=== PATIENT | male | born 1955 | race Caucasian/White ===

== ENCOUNTER 2020-07-11 11:46 | Emergency (ER) | payer MEDICAID, SELFPAY ==
[2020-07-11] VITALS (7 sets, daily range): BP systolic 111–139; BP diastolic 59–78; PULSE 59–76; RESP 17–29; TEMP 36.7; O2SAT 96–98; BMI 40.3
--- NOTE | 2020-07-11 11:59 | XR_ITS ---
WS: [id number] Chest 2 views, 07/11/2020 Clinical Data: SOB Comparison: PA chest, 03/22/2014. Findings: No nodules, masses or effusions are seen. The heart is enlarged. The pulmonary vascularity is not increased. No pneumonia or pneumothorax is seen. The permanent pacemaker remains in same posit ion with the generator overlying the left upper lung. XR/XR chest 2V* 41209 Impression: No change in cardiomegaly.
--- NOTE | 2020-07-11 11:59 | ECG_ITS ---
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 Measurements Intervals [place] Rate: 64 P: UT: -1 QRS: -86 QRSD: 218 T: 93 QT: 534 QTc: 554 Interpretive Statements Atrial fibrillation with V paced rhythm with PVC's No previous ECG available for comparison Electronically Signed On 07-11-2020 20:17:41 CDT by Nicki Holloway M.D. [id number]
--- NOTE | 2020-07-11 12:05 | W.ED.SOB ---
HPI - SOB/Dyspnea General: Chief Complaint: Shortness of Breath/Dyspnea Stated Complaint: SOB/ABD PAIN Time Seen by Provider: 07/11/20 11:49 Source: patient Mode of arrival: ambulatory Limitations: no limitations History of Present Illness: MD elicited complaint: shortness of breath and cough Pertinent past history: congestive heart failure Onset (ago): day(s) (3) Timing: constant and progressively worsening Severity: moderate Exacerbating factors: nothing Relieving factors: nothing Known history of: congestive heart failure Associated symptoms: Reports abdominal pain, chest congestion and cough; Deny chest pain, diaphoresis, dizziness, extremity pain, fever(s), hemoptysis, lightheadedness, myalgias, nausea, orthopnea, palpitations, paresthesias, polydipsia, polyuria, rash, sense of impending doom, syncope or vomiting Treatment prior to arrival: none Review of Systems General: Reports: 10 or more systems reviewed and unremarkable except in HPI and below Const: Denies: fever(s) or diaphoresis Eyes: Denies: change in vision or blurry vision ENMT: Denies: throat pain, enlarged tonsils, odynophagia, hoarseness, mouth pain or swelling of lips/tongue Card: Denies: chest pain, palpitations, lightheadedness, syncope or orthopnea Resp: Reports: chest congestion; Denies: hemoptysis GI: Reports: abdominal pain; Denies: nausea or vomiting : Denies: flank pain, dysuria, urinary frequency, urinary urgency or urinary hesitancy Musc: Denies: extremity pain Skin/Breast: Denies: rash, pruritus or erythema Neuro: Denies: dizziness Endo: Denies: polyuria or polydipsia PFSH ED PFSH: Medical History 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, congenital Mitral regurgitation Tricuspid valve disease Surgical History Status cardiac pacemaker Family History Mother Diabetes Social History Smoking and tobacco status: former smoker Alcohol intake: former Marital status: service: No Current occupational status: disabled Physical Exam Const: COMMON NORMALS: no acute distress, average body habitus, patient oriented x3, no limitations, healthy appearing, alert and well nourished HENMT: COMMON NORMALS: normocephalic, atraumatic and moist oral mucous membranes HEAD & SCALP: normocephalic and atraumatic Neck/C-Spine: COMMON NORMALS: no meningeal signs and no JVD Resp: COMMON NORMALS: normal respiratory effort, No retractions, No use of accessory muscles, clear to auscultation bilaterally and percussion normal AUSCULTATION: clear to auscultation bilaterally PERCUSSION: percussion normal Cardio: COMMON NORMALS: no JVD, regular rate, regular rhythm, S1 normal heart sound present, S2 normal heart sound present, No gallops present (Cardio), No clicks present (Cardio), No murmurs present (Cardio), No rub (Cardio) and Peripheral pulses 2+ throughout RATE: regular rate RHYTHM: regular rhythm HEART SOUNDS: S1 normal heart sound present and S2 normal heart sound present PERIPHERAL PULSES: Peripheral pulses 2+ throughout GI: COMMON NORMALS: Normal to inspection, nondistended, normoactive bowel sounds present, Soft to palpation, non-tender, No hepatosplenomegaly present, no masses and no bruits PALPATION: Yes Soft to palpation and Yes No hepatosplenomegaly present Extremity: COMMON NORMALS: normal to inspection, full ROM, capillary refill normal, no calf tenderness and no pedal edema Neuro: COMMON NORMALS: patient oriented x3 SENSORIUM/ORIENTATION: Yes alert MENINGEAL SIGNS: Yes no meningeal signs Course Reevaluation(s): Reevaluation #1: Discussed his lab and imaging findings with him. He has significantly elevated liver functions and bilirubin, he has had a history of liver issues in the past but he still has his gallbladder so I will order an ultrasound of his gallbladder. Baseline troponin mildly elevated, proBNP elevated also. Chest x-ray negative for acute findings. We will talk to him after I get the ultrasound of his abdomen. He voiced understanding and is in agreement with the plan Time: 14:26 Consultations: Consultation #1: Discussed his repeat troponin, CT scan of his chest abdomen and pelvis and ultrasound of his gallbladder. Ultrasound unremarkable, however CT scan of his abdomen shows he has a single gallstone but no features of cholelithiasis. Because of the marcia-cholecystic edema I advised that he follows up with a general surgeon for further evaluation. CT scan of his lungs also shows a single pulmonary nodule and so he is advised to follow-up with his primary care for repeat imaging in about 3 months. Because his troponin is elevated even though he has a flat delta I would advise a stress test outpatient. Also the patient states that he is not sleeping well and wakes up at night sometimes with difficulty breathing, not certain if this is orthopnea or just sleep apnea as his body habitus appearance to favor sleep apnea. He has never had a sleep study done so I advised that he gets 1. He voiced understanding with all these plans and is in agreement with all the plans. I will put in a referral for sleep study, stress test, and referral to a surgeon. Time: 16:41 Vital Signs: Vital signs: Vital Signs Temperature 98.1 F 07/11/20 11:53 Pulse Rate 64 07/11/20 17:05 Respiratory Rate 26 H 07/11/20 17:05 Blood Pressure 118/72 07/11/20 17:05 Pulse Oximetry 97 07/11/20 17:05 MDM - SOB/Dyspnea MDM Narrative: Medical decision making narrative: Patient who presents to the emergency department with progressive shortness of breath. He has a history of congestive heart failure and is on Lasix. Due to his body habitus I suspect he also has obstructive sleep apnea. But he has never been tested for it. Evaluation in the emergency department showed he had an elevated baseline troponin but a flat delta, however given that it is raised he will get an outpatient stress test. He also has elevated liver enzymes but looking through his old labs he has had that in the past. Imaging done shows a gallstone but no findings suggestive of cholecystitis. He will be referred to a general surgeon for further evaluation. He also has some hyponatremia but it is mild. Well score is 0 so low risk for PE. Referrals made for surgery, sleep study, stress test. No new orders were given to the patient today. Medical Records: Attestation: I reviewed the patient's medical records. Lab Data: Attestation: I reviewed the patient's lab results. Labs: Lab Results 07/11/20 07/11/20 07/11/20 Range/Units 12:07 12:07 12:07 WBC 8.9 (4.0-10.0) 10^3/ uL RBC 4.34 (4.1-5.3) 10^6/u L Hgb 10.1 L (11.7-16.6) g/dL Hct 34.3 L (42.0-52.0) % MCV 79.0 L (80-94) fL MCH 23.3 L (28.0-34.0) pg MCHC 29.4 L (30.0-36.0) g/dL RDW 17.8 H (12.1-15.1) % Plt Count 288 (130-400) 10^3/c mm MPV 10.4 (7.4-10.4) fL Neut % (Auto) 80.8 % Lymph % (Auto) 9.8 % Amelia % (Auto) 8.2 % Eos % (Auto) 0.4 % Baso % (Auto) 0.4 % Neut # (Auto) 7.20 (1.8-7.7) 10^3/u L Lymph # (Auto) 0.9 (0.8-4.8) 10^3/u L Amelia # (Auto) 0.7 (0.2-0.9) 10^3/u L Eos # (Auto) 0.0 (0.0-0.8) 10^3/u L Baso # (Auto) 0.0 (0.0-0.1) 10^3/u L Nucleated RBC % (a uto) 0.2 % Nucleated RBCs # 0.0 /100WBC Sodium 129 L (136-145) mmol/L Potassium 4.3 (3.5-5.1) mmol/L Chloride 91 L (98-107) mmol/L Carbon Dioxide 19 L (22-29) mmol/L Anion Gap 23.3 H (5-19) BUN 23 (8-23) mg/dL Creatinine 1.5 H (0.7-1.2) mg/dL GFR Calculation 47.4 L (90-130) mL/min Glucose 138 H (65-115) mg/dL Calculated Osmolal ity 267 L (285-295) mOsm/k g Calcium 8.9 (8.5-10.5) mg/dL Total Bilirubin 4.4 H (0.15-1.2) mg/dL AST 419 H (0-40) U/L ALT 513 H (0-41) U/L Alkaline Phosphata se 123 (40-130) IU/L Troponin T Baselin e 34 H (0-15) ng/L Troponin T 120 Min [place] (0-15) ng/L Delta Troponin T (0-10) ABS# C-Reactive Protein 61.7 H (0.0-4.9) mg/L NT-Pro-B Natriuret Pep 3367 H (0-125) pg/mL Total Protein 7.5 (6.6-8.7) g/dL Albumin 4.5 (3.5-5.2) g/dL Globulin 3.0 (1.3-4.6) g/dL Lipase 65 H (13-60) U/L Procalcitonin 0.20 (0-0.5) ng/mL 07/11/20 Range/Units 14:17 WBC (4.0-10.0) 10^3/ uL RBC (4.1-5.3) 10^6/u L Hgb (11.7-16.6) g/dL Hct (42.0-52.0) % MCV (80-94) fL MCH (28.0-34.0) pg MCHC (30.0-36.0) g/dL RDW (12.1-15.1) % Plt Count (130-400) 10^3/c mm MPV (7.4-10.4) fL Neut % (Auto) % Lymph % (Auto) % Amelia % (Auto) % Eos % (Auto) % Baso % (Auto) % Neut # (Auto) (1.8-7.7) 10^3/u L Lymph # (Auto) (0.8-4.8) 10^3/u L Amelia # (Auto) (0.2-0.9) 10^3/u L Eos # (Auto) (0.0-0.8) 10^3/u L Baso # (Auto) (0.0-0.1) 10^3/u L Nucleated RBC % (a uto) % Nucleated RBCs # /100WBC Sodium (136-145) mmol/L Potassium (3.5-5.1) mmol/L Chloride (98-107) mmol/L Carbon Dioxide (22-29) mmol/L Anion Gap (5-19) BUN (8-23) mg/dL Creatinine (0.7-1.2) mg/dL GFR Calculation (90-130) mL/min Glucose (65-115) mg/dL Calculated Osmolal ity (285-295) mOsm/k g Calcium (8.5-10.5) mg/dL Total Bilirubin (0.15-1.2) mg/dL AST (0-40) U/L ALT (0-41) U/L Alkaline Phosphata se (40-130) IU/L Troponin T Baselin e (0-15) ng/L Troponin T 120 Min [place] 34.19 H (0-15) ng/L Delta Troponin T 0.19 (0-10) ABS# C-Reactive Protein (0.0-4.9) mg/L NT-Pro-B Natriuret Pep (0-125) pg/mL Total Protein (6.6-8.7) g/dL Albumin (3.5-5.2) g/dL Globulin (1.3-4.6) g/dL Lipase (13-60) U/L Procalcitonin (0-0.5) ng/mL Imaging Data^: CXR: Radiologist's impression: [address] [address] XRay Report Signed Patient: Maximus Martines #: [id number] : 8[facility]#:[id number] Age/Sex: 64 / MADM Date: 07/11/20 [facility]: [facility]/Bed: Attending Dr: Ordering Provider/Ordering MD: Claudia Mayes MD, [facility] Date of Service: 07/11/20 Procedure(s): XR chest 2V* [id number] Accession Number(s): [id number] Report Number: [id number] WS: [id number] Chest 2 views, 07/11/2020 Clinical Data: SOB Comparison: PA chest, 03/22/2014. Findings: No nodules, masses or effusions are seen. The heart is enlarged. The pulmonary vascularity is not increased. No pneumonia or pneumothorax is seen. The permanent pacemaker remains in same position with the generator overlying the left upper lung. XR/XR chest 2V* 29444 Impression: No change in cardiomegaly. Dictated By:Laly Catalan MD Signed By:Laly Catalan MDSigned Date/Time:07/11/[address] Chest: Radiologist's impression: [address] [address] [address] Scan Report Signed Patient: Maximus Martines #: [id number] : 8Acct#:[id number] Age/Sex: 64 / MADM Date: 07/11/20 Loc: ERRoom/Bed: Attending Dr: Ordering Provider/Ordering MD: Claudia Mayes MD, [facility] Date of Service: 07/11/20 Procedure(s): CT chest abd pel wo con Accession Number(s): [id number] Report Number: [id number] PROCEDURE INFORMATION: Exam: CT Chest Without Contrast Exam date and time: 07/11/2020 3:25 PM Age: 64 years old Clinical indication: Nausea and vomiting; Shortness of breath; Prior surgery; Surgery type: Pacemaker; Additional info: SOB, hepatomegaly, elevated liver enzymes. TECHNIQUE: Imaging protocol: Computed tomography of the chest without contrast. Radiation optimization: All CT scans at this facility use at least one of these dose optimization techniques: automated exposure control; mA and/or kV adjustment per patient size (includes targeted exams where dose is matched to clinical indication); or iterative reconstruction. COMPARISON: US gall bladder [id number] 07/11/2020 2:30 PM RADIATION DOSE METRICS: Total DLP (mGy-cm): 2781.93 FINDINGS: Tubes, catheters and devices: A dual lead left subclavian permanent pacemaker is present. The right atrial and right ventricular leads appear to be in good position. Lungs: 2.6 mm right upper lobe posterior segment not definitely calcified pulmonary nodule. Right lower lobe calcified pulmonary parenchymal granuloma. Left upper lobe calcified pulmonary parenchymal granuloma. Pleural space: No pneumothorax. No pleural effusion. Heart: Moderate cardiomegaly. Atherosclerotic coronary calcifications are noted involving the LAD and LCx coronary arteries. Moderate pericardial effusion. Mediastinal space: Right hilar granulomatous katelynn calcifications are present. Aorta: Unremarkable. No aortic aneurysm. Lymph nodes: No enlarged lymph nodes. Pancreas: Severe pancreatic atrophy. Spleen: Calcified splenic granuloma. Bones/joints: No acute abnormality. No acute fracture. Soft tissues: Unremarkable. IMPRESSION: 1. Noncalcified left upper lobe pulmonary nodule. Pulmonary neoplasia not excluded. Comparison with prior studies, if available, recommended. Three-month followup chest CT, PET/CT, or percutaneous needle biopsy recommended. (Blessing et al., Fleischner Society, 2017). 2. Coronary atherosclerosis. 3. Moderate pericardial effusion. 4. Please see the abdomen/pelvis CT report of the same date for additional findings. PROCEDURE INFORMATION: Exam: CT Abdomen And Pelvis Without Contrast Exam date and time: 07/11/2020 3:25 PM Age: 64 years old Clinical indication: Nausea and vomiting; Shortness of breath; Prior surgery; Surgery type: Pacemaker; Additional info: SOB, hepatomegaly, elevated liver enzymes. TECHNIQUE: Imaging protocol: Computed tomography of the abdomen and pelvis without contrast. Radiation optimization: All CT scans at this facility use at least one of these dose optimization techniques: automated exposure control; mA and/or kV adjustment per patient size (includes targeted exams where dose is matched to clinical indication); or iterative reconstruction. COMPARISON: US gall bladder [id number] 07/11/2020 2:30 PM RADIATION DOSE METRICS: Total DLP (mGy-cm): 2781.93 FINDINGS: Lungs: A 9.2 mm noncalcified pulmonary nodule is noted in the medial anterior segment of the left upper lobe (LOC 100). Liver: Normal. No mass. Gallbladder and bile ducts: A single 2.3 mm gallstone is present in the neck of the contracted gallbladder. No wall thickening or pericholecystic fluid identified. Mild pericholecystic edema. Pancreas: Normal. No ductal dilation. Spleen: Normal. No splenomegaly. Adrenals: Normal. No mass. Kidneys and ureters: Severe left renal atrophy. 2.4 cm exophytic left renal benign simple cyst. Stomach and bowel: Sigmoid colonic diverticula are present without specific evidence of diverticulitis, left iliac fossa ascites blurs the proximal sigmoid colonic margin. Appendix: The vermiform appendix is normal. Intraperitoneal space: Mild nonspecific perihepatic, bilateral paracolic gutter and iliac fossae peritoneal fluid. Vasculature: Calcified phleboliths are present in the lower pelvis bilaterally. Lymph nodes: Peripancreatic lymph node measuring 10.7 mm short axis. Portacaval lymph node measuring 10.9 mm short axis. Bladder: Unremarkable as visualized. Reproductive: The prostate gland demonstrates nonspecific parenchymal calcifications. Bones/joints: Moderate L1-L2 spondylosis. Bilateral mild lower lumbar facet primary osteoarthritis. Lumbar spine vertebral body marginal osteophytes are noted at multiple levels. Soft tissues: Bilateral inguinal hernias are present containing only intra-abdominal fat. CT/CT chest abd pel wo con IMPRESSION: 1. Cholelithiasis, mild pericholecystic edema without gallbladder luminal distension. Clinical correlation with the patient's specific symptomatology is recommended. Two 2. Mild nonspecific perihepatic, bilateral paracolic gutter and iliac fossae peritoneal fluid. 3. Severe left renal atrophy. 4. Left renal benign simple cyst. 5. Chronic calcific prostatitis. 6. Nonspecific mild upper abdominal lymphadenopathy. 7. Diverticulosis. COMMENTS: Consistent with the [place] [employer]'s Incidental Findings Committee white paper (J Am Solomon Radiol 2018): Any incidental renal lesion less than 1.0 cm or classified as too small to characterize, or any incidental cystic renal lesion characterized as simple-appearing, is likely benign. No follow-up imaging is recommended for these lesions per consensus recommendations based on imaging criteria. Radiation Dose CTDIVOL = (mGy): DLP = 2781.93~2781.93 (mGy-cm) Dictated By:Ben Ibarra MD Signed By:Ben Ibarra Date/Time:07/11/201609 DD/ 1610 US: Radiologist's impression: [address] [place] [address] Ultrasound Report Signed Patient: Maximus Martines #: [id number] : 8Acct#:[id number] Age/Sex: 64 / MADM Date: 07/11/20 Loc: ERRoom/Bed: Attending Dr: Ordering Provider/Ordering MD: Claudia Mayes MD, [facility] Date of Service: 07/11/20 Procedure(s): US gall bladder 20710 Accession Number(s): [id number] Report Number: [id number] WS: [id number] ULTRASOUND ABDOMEN LIMITED CLINICAL INFORMATION: elevated liver enzymes COMPARISON: None. FINDINGS: Liver Size: Enlarged Craniocaudal length: 19.9 cm. Echogenicity: Coarse dense echogenicity Surface nodularity: None. Mass (size and location): None. Bile ducts Intrahepatic ducts: Normal. Common bile duct diameter: 0.4 cm. Gallbladder Mild gallbladder wall thickening. Gallbladder is normal. Gallstones: None. Gallbladder sludge: None. Gallbladder wall thickenin.6 mm Pericholecystic fluid: None. Sonographic Garcia sign: Absent. Pancreas Normal as visualized. Right kidney: Normal. Hydronephrosis: None. Size: 11.0 cm x 5.7 cm x 5.8 cm. Abdominal aorta and IVC Visualized portions are normal. Ascites: None. US/US gall bladder [id number] IMPRESSION: 1. Hepatomegaly with diffuse fatty infiltration. Recommend correlation with liver function tests. 2. Mild gallbladder wall thickening measuring 3.6 mm similar in appearance to 2014 likely on the basis of hepatocellular disease. No cholelithiasis. Gallbladder is otherwise normal. 3. Normal common bile duct. 4. No hydronephrosis in right kidney. Dictated By:Jimi Parrish MD Signed By:Jimi Parrish MDSigned Date/Time:07/11/20 1506 DD/ 1501 EKG Data^: EKG 1: Attestation: I personally reviewed and interpreted this EKG as follows: EKG Interpretation Date: 07/11/20 EKG interpretation time: 12:14 Prior EKG tracings: not available for review Interpretation: Ventricular paced rhythm. Heart rate [address] changes. EKG 2: Attestation: I personally reviewed and interpreted this EKG as follows: EKG Interpretation Date: 07/11/20 EKG interpretation time: 14:28 Prior EKG tracings: available for review Interpretation: Ventricular paced rhythm. Heart rate 62 bpm. Unchanged from earlier today. Discharge Plan Discharge Patient Disposition: Home Clinical Impression: Breath, shortness, Elevated troponin, Incidental pulmonary nodule Gallstone Qualifiers: Cholecystitis presence: without cholecystitis Biliary obstruction: without biliary obstruction Qualified Code(s): K80.20 - Calculus of gallbladder without cholecystitis without obstruction Condition: Stable Prescriptions: New Reglan 10 mg tablet 10 mg PO Q6H PRN (Reason: nausea and vomiting) Qty: 30 RF: 0 Continued potassium chloride [Klor-Con M20] 20 mEq tablet,ER particles/crystals 20 meq PO DAILY 90 Days Qty: 90 RF: 3 furosemide 80 mg tablet 80 mg PO BID RF: 0 lisinopril 5 mg tablet 5 mg PO DAILY RF: 0 aspirin [Aspir-81] 81 mg tablet,delayed release (DR/EC) 81 mg PO DAILY RF: 0 magnesium oxide 400 mg magnesium capsule 400 mg PO DAILY RF: 0 spironolactone 50 mg tablet 50 mg PO DAILY 90 Days Qty: 90 RF: 3 omeprazole 20 mg capsule,delayed release(DR/EC) 20 mg PO DAILY Qty: 90 RF: 3 Discharge Orders: Discharge Order (Routine); Ordered 07/11/20 Ordered By: Claudia Mayes Patient Instructions: Biliary Colic (ED), Pulmonary Nodules (ED) Activity Restrictions/Additional Instructions: Return for any new or worsening symptoms. You will be contacted by case management to schedule appointment with the general surgeon for your gallbladder, and outpatient stress test as well and with sleep study. It is important that you get a primary care provider to coordinate your care. Take the medication as needed for nausea. Discharge Date/Time: 07/11/20 17:11 Coding Level of Care Code ED Equipment Application Specialist for Chel Fwcassidy Exam Detailed
[2020-07-11 12:13] LABS: Basophils % 0.4 %; Eosinophils % 0.4 %; Hematocrit 34.3 % (42.0-52.0); Hemoglobin 10.1 g/dL (11.7-16.6); Lymphocytes # 0.9 10^3/uL (0.8-4.8); Lymphocytes % 9.8 %; Mean Corpuscular HGB Conc 29.4 g/dL (30.0-36.0); Mean Corpuscular Hemoglobin 23.3 pg (28.0-34.0); Mean Platelet Volume 10.4 fL (7.4-10.4); Monocytes # 0.7 10^3/uL (0.2-0.9); Monocytes % 8.2 %; Neutrophils % 80.8 %; Nucleated Red Blood Cells % 0.2 %; Platelet Count 288 10^3/cmm (130-400); Red Blood Count 4.34 10^6/uL (4.1-5.3); Red Cell Distribution Width 17.8 % (12.1-15.1); White Blood Count 8.9 10^3/uL (4.0-10.0)
[2020-07-11 12:36] LABS: Troponin(5th) Baseline 34 ng/L (0-15)
[2020-07-11 12:45] LABS: NT Pro B Type Natriuretic Pept 3367 pg/mL (0-125)
[2020-07-11 12:56] LABS: Alanine Aminotransferase 513 U/L (0-41); Albumin Level 4.5 g/dL (3.5-5.2); Alkaline Phosphatase 123 IU/L (40-130); Anion Gap 23.3 (5-19); Aspartate Amino Transferase 419 U/L (0-40); Blood Urea Nitrogen 23 mg/dL (8-23); C Reactive Protein 61.7 mg/L (0.0-4.9); Calcium 8.9 mg/dL (8.5-10.5); Carbon Dioxide 19 mmol/L (22-29); Chloride 91 mmol/L (98-107); Glomerular Filtration Rate 47.4 mL/min (90-130); Glucose 138 mg/dL (65-115); Lipase 65 U/L (13-60); Osmolality Calculated 267 mOsm/kg (285-295); Potassium 4.3 mmol/L (3.5-5.1); Sodium 129 mmol/L (136-145); Total Bilirubin 4.4 mg/dL (0.15-1.2); Total Protein 7.5 g/dL (6.6-8.7)
--- NOTE | 2020-07-11 13:59 | ECG_ITS ---
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 Measurements Intervals [place] Rate: 62 P: NC: -1 QRS: 269 QRSD: 216 T: 89 QT: 561 QTc: 574 Interpretive Statements Atrial fibrillation with V paced rhythm with PVC's Compared to ECG 07/11/2020 12:14:49 Prolonged QT interval now present Electronically Signed On 07-11-2020 20:34:54 CDT by Nicki Holloway M.D. [email or web address] [facility] hospitalECS [email or web address].[employer]/store/OM/[id number]
--- NOTE | 2020-07-11 14:27 | US_ITS ---
WS: [id number] ULTRASOUND ABDOMEN LIMITED CLINICAL INFORMATION: elevated liver enzymes COMPARISON: None. FINDINGS: Liver Size: Enlarged Craniocaudal length: 19.9 cm. Echogenicity: Coarse dense echogenicity Surface nodularity: None. Mass (size and location): None. Bile ducts Intrahepatic ducts: Normal. Common bile duct diameter: 0.4 cm. Gallbladder Mild gallbladder wall thickening. Gallbladder is normal. Gallstones: None. Gallbladder sludge: None. Gallbladder wall thickenin.6 mm Pericholecystic fluid: None. Sonographic Garcia sign: Absent. Pancreas Normal as visualized. Right kidney: Normal. Hydronephrosis: None. Size: 11.0 cm x 5.7 cm x 5.8 cm. Abdominal aorta and IVC Visualized portions are normal. Ascites: None. US/US gall bladder [id number] IMPRESSION: 1. Hepatomegaly with diffuse fatty infiltration. Recommend correlation with li jenny function tests. 2. Mild gallbladder wall thickening measuring 3.6 mm similar in appearance to 2014 likely on the basis of hepatocellular disease. No cholelithiasis. Gallblad gayathri is otherwise normal. 3. Normal common bile duct. 4. No hydronephrosis in right kidney.
[2020-07-11 14:51] LABS: Troponin 5 2HR 34.19 ng/L (0-15); Troponin 5 2HR Delta 0.19 ABS# (0-10)
--- NOTE | 2020-07-11 15:18 | CTR_ITS ---
PROCEDURE INFORMATION: Exam: CT Chest Without Contrast Exam date and time: 07/11/2020 3:25 PM Age: 64 years old Clinical indication: Nausea and vomiting; Shortness of breath; Prior surgery; Surgery type: Pacemaker; Additional info: SOB, hepatomegaly, elevated liver enzymes. TECHNIQUE: Imaging protocol: Computed tomography of the chest without contrast. Radiation optimization: All CT scans at this facility use at least one of these dose optimization techniques: automated exposure control; mA and/or kV adjustment per patient size (includes targeted exams where dose is matched to clinical indication); or iterative reconstruction. COMPARISON: US gall bladder [id number] 07/11/2020 2:30 PM RADIATION DOSE METRICS: Total DLP (mGy-cm): 2781.93 FINDINGS: Tubes, catheters and devices: A dual lead left subclavian permanent pacemaker is present. The right atrial and right ventricular leads appear to be in good position. Lungs: 2.6 mm right upper lobe posterior segment not definitely calcified pulmonary nodule. Right lower lobe calcified pulmonary parenchymal granuloma. Left upper lobe calcified pulmonary parenchymal granuloma. Pleural space: No pneumothorax. No pleural effusion. Heart: Moderate cardiomegaly. Atherosclerotic coronary calcifications are noted involving the LAD and LCx coronary arteries. Moderate pericardial effusion. Mediastinal space: Right hilar granulomatous katelynn calcifications are present. Aorta: Unremarkable. No aortic aneurysm. Lymph nodes: No enlarged lymph nodes. Pancreas: Severe pancreatic atrophy. Spleen: Calcified splenic granuloma. Bones/joints: No acute abnormality. No acute fracture. Soft tissues: Unremarkable. IMPRESSION: 1. Noncalcified left upper lobe pulmonary nodule. Pulmonary neoplasia not excluded. Comparison with prior studies, if available, recommended. Three-month followup chest CT, PET/CT, or percutaneous needle biopsy recommended. (Blessing et al., Fleischner Society, 2017). 2. Coronary atherosclerosis. 3. Moderate pericardial effusion. 4. Please see the abdomen/pelvis CT report of the same date for additional findings. PROCEDURE INFORMATION: Exam: CT Abdomen And Pelvis Without Contrast Exam date and time: 07/11/2020 3:25 PM Age: 64 years old Clinical indication: Nausea and vomiting; Shortness of breath; Prior surgery; Surgery type: Pacemaker; Additional info: SOB, hepatomegaly, elevated liver enzymes. TECHNIQUE: Imaging protocol: Computed tomography of the abdomen and pelvis without contrast. Radiation optimization: All CT scans at this facility use at least one of these dose optimization techniques: automated exposure control; mA and/or kV adjustment per patient size (includes targeted exams where dose is matched to clinical indication); or iterative reconstruction. COMPARISON: US gall bladder [id number] 07/11/2020 2:30 PM RADIATION DOSE METRICS: Total DLP (mGy-cm): 2781.93 FINDINGS: Lungs: A 9.2 mm noncalcified pulmonary nodule is noted in the medial anterior segment of the left upper lobe (LOC 100). Liver: Normal. No mass. Gallbladder and bile ducts: A single 2.3 mm gallstone is present in the neck of the contracted gallbladder. No wall thickening or pericholecystic fluid identified. Mild pericholecystic edema. Pancreas: Normal. No ductal dilation. Spleen: Normal. No splenomegaly. Adrenals: Normal. No mass. Kidneys and ureters: Severe left renal atrophy. 2.4 cm exophytic left renal benign simple cyst. Stomach and bowel: Sigmoid colonic diverticula are present without specific evidence of diverticulitis, left iliac fossa ascites blurs the proximal sigmoid colonic margin. Appendix: The vermiform appendix is normal. Intraperitoneal space: Mild nonspecific perihepatic, bilateral paracolic gutter and iliac fossae peritoneal fluid. Vasculature: Calcified phleboliths are present in the lower pelvis bilaterally. Lymph nodes: Peripancreatic lymph node measuring 10.7 mm short axis. Portacaval lymph node measuring 10.9 mm short axis. Bladder: Unremarkable as visualized. Reproductive: The prostate gland demonstrates nonspecific parenchymal calcifications. Bones/joints: Moderate L1-L2 spondylosis. Bilateral mild lower lumbar facet primary osteoarthritis. Lumbar spine vertebral body marginal osteophytes are noted at multiple levels. Soft tissues: Bilateral inguinal hernias are present containing only intra-abdominal fat. CT/CT chest abd pel wo con IMPRESSION: 1. Cholelithiasis, mild pericholecystic edema without gallbladder luminal distension. Clinical correlation with the patient's specific symptomatology is recommended. Two 2. Mild nonspecific perihepatic, bilateral paracolic gutter and iliac fossae peritoneal fluid. 3. Severe left renal atrophy. 4. Left renal benign simple cyst. 5. Chronic calcific prostatitis. 6. Nonspecific mild upper abdominal lymphadenopathy. 7. Diverticulosis. COMMENTS: Consistent with the [employer]'s Incidental Findings Committee white paper (J Am Solomon Radiol 2018): Any incidental renal lesion less than 1.0 cm or classified as too small to characterize, or any incidental cystic renal lesion characterized as simple-appearing, is likely benign. No follow-up imaging is recommended for these lesions per consensus recommendations based on imaging criteria. Radiation Dose CTDIVOL = (mGy): DLP = 2781.93~2781.93 (mGy-cm)
--- NOTE | 2020-07-11 17:00 | PC.NURSE ---
UPON DC DR. SIERRA INFORMED OF RR OF 26/MIN. VERBALIZED UNDERSTANDING NO FURTHER ORDERS.
--- NOTE | 2020-07-12 09:52 | DCPLANNER ---
dairy store manager had message to schedule a follow up appointment for patient for an outpatient stress test, a sleep study and a follow up appointment with general surgery. dairy store manager called patient to confirm that patient wanted the stress test, and sleep study, and to confirm who patient sees for primary care to send these results to. Patient stated that he did want the tests ordered, and that he did not have a primary care. Patient stated that he did not want to be seen at the [facility], he would see a physician in [place]. dairy store manager will get patient established with Dr. Malagon. dairy store manager faxed order for stress test and sleep study to centralized scheduling. dairy store manager did get conformation that order was received at centralized scheduling. Centralized scheduling will call patient with appointment information. dairy store manager also had message to schedule a follow up appointment for patient with general surgery. dairy store manager called the [facility], spoke with Meli, gave clinic patients information. dairy store manager was told that patients information would be printed and reviewed. Clinic will call patient with appointment information. After patient is scheduled for stress test, and sleep study, family independence case manager will schedule a follow up appointment for patient with Dr. Malagon, and will call patient with appointment information.
--- NOTE | 2020-07-18 10:41 | DCPLANNER ---
Addendum entered by Vy Penny 07/19/20 13:29: Patient has another appointment scheduled for Wednesday, July 29, 2020 at 9:00 with [facility] Manager clinic. net development manager called patient and gave patient the appointment information for Dr. Malagon. Original Note: Patient has some follow up appointments scheduled. Stress test - June at 11:30 Sleep Study - Thursday, August 06, 2020 at 8:00 Dr. Malagon - August 13, at 9:[address] Malagon. net development manager called [facility] clinic, spoke with Kelly. net development manager was told that no appointment had been scheduled for patient at this time. net development manager called patient to inform patient of the appointment with Dr. Malagon, unable to speak with patient at this time and no voicemail set up, will try again later.
--- NOTE | 2020-08-16 15:17 | DCPLANNER ---
Patient had a stress test scheduled for 07.25.20 - patient did attend stress test Patient had a sleep study scheduled for 08.06.20 - patient did attend sleep study Patient had an appointment scheduled for 07.29.20 with Block Making Machine Operator study - patient did attend appointment. Patient had an appointment scheduled for 08.13.[address] Malagon - patient did attend appointment.
== END 2020-07-11 17:11 | disposition home or self-care (01) ==
PROVIDERS: Emergency Provider Family Medicine
DX: R06.02 Shortness of breath (principal); K80.20 Calculus of gallbladder without cholecystitis without obstruction; R79.89 Other specified abnormal findings of blood chemistry; R91.1 Solitary pulmonary nodule; Z79.82 Long term (current) use of aspirin; Z95.0 Presence of cardiac pacemaker; Z87.891 Personal history of nicotine dependence
CPT/HCPCS: 12345; 36415; 71046; 71250; 74176; 76705; 80053; 83690; 83880; 84145; 84484; 85025; 86140; 93005; 99283; 99284

== ENCOUNTER 2020-07-25 08:49 | Outpatient (CLI) | payer MEDICAID, SELFPAY ==
[2020-07-25 09:37] VITALS: BMI 35.7
--- NOTE | 2020-07-25 09:38 | NMCV_ITS ---
NM breezy perf SPECT r/s* [id number] Johnnie Martines Age: 64 Gender: M : 1955 Exam Date: 07/25/2020 09:38 Ordering Phys: Claudia Mayes [place] [facility] [place]ologist: GINA Meyers Exam Location: [facility] Indications: OBESITY, SNORING STRESS TEST Please see separate stress test report in [facility] for full findings IMAGE PROTOCOL Rest/Stress 1 Lexiscan Day Radiopharmaceutical Dose (mCi) Administration Site Administered by Rest: Tc-99m 10.8 IV GINA Sue Sestamibi Stress:Tc-99m 32.5 IV GINA Meyers Sestamisrinivasa Rest: 25-Jul-2020 60 Discovery 630 Stress: 25-Jul-2020 30 Discovery 630 0.4mg Lexiscan. Supine position only as patient was unable to lay prone. SPECT RESULTS Technical Quality: Good Raw Data Analysis: Adequate Image Corrections: No attenuation or motion correction applied Summed Stress Score: 24 Summed Rest Score: 24 Summed Difference Score: 4 PERFUSION FINDINGS Large sized perfusion abnormalilty of moderate to severe severity of basal to apical anterior, basal to mid anterolateral, basal to mid inferolateral, apical lateral, apical septal and apical massey on rest images with subtle reversibility in stress images. FUNCTIONAL RESULTS (calculated via Gated SPECT) Stress Image LV EF (%): 57 Stress EDV (mL):220 TID: 1.08 Stress ESV (mL):94 FUNCTIONAL FINDINGS: The left ventricle is normal in size. Transient Ischemia Dilatation of 1.1. There is normal left ventricular systolic function. The left ventricular ejection fraction is normal with a value of 57%. There is normal left ventricular wall thickening. Increased end diastolic and end systolic function. IMPRESSIONS 1. Large sized perfusion abnormalilty of moderate to severe severity of basal to apical anterior, basal to mid anterolateral, basal to mid inferolateral, apical lateral, apical septal and apical massey on rest images with subtle reversibility in stress images. 2. This may represent attenuation artifact or old myocardial infarction in LAD/LCx artery territory with no significant marcia-infarct ischemia. 3. Overall left ventricular systolic function is abnormal with regional wall motion abnormalities. 4. The left ventricular ejection fraction is normal with a value of 57%. 5. No prior similar studies to compare. Nicki Holloway MD (Electronically Signed) Final Date: 28 July 2020 17:09 S
--- NOTE | 2020-07-25 09:38 | ECG_ITS ---
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 Interpretive Statements NAME OF STUDY: LEXISCAN SESTAMIBI STRESS TEST INDICATION: ELEVATED TROPONIN PROCEDURE: At the baseline, the EKG revealed atrial fibrillation with V paced rhythm. The baseline blood pressure was 113/69 mm Hg with a heart rate of 62 beats/min. Lexiscan was infused over a period of 20 seconds. A total of 0.4 milligrams of Lexiscan was infused. The stress phase was continued for a total of 5 minutes. Heart rate at the end of the stress phase was 62 bpm with a blood pressure 131/69 mm Hg. The EKG at the peak infusion revealed V paced rhythm. The study was terminated due to protocol completion. Sestamibi was injected 20 seconds after the Lexiscan infusion. Blood pressure at the end of the recovery phase was 114/67 mm Hg with a heart rate of 60 beats per minute. CONCLUSION: 1. Non diagnostic EKG with the LexiScan infusion given paced rhythm. 2. No LexiScan induced chest pain or cardiac arrhythmia. 3. Normal blood pressure and heart rate response. 4. Sestamibi/sestamibi perfusion scan pending; see separate report. RESULTS TO YURIY MEYER Electronically Signed On 07-27-2020 21:59:19 CDT by Nicki Holloway M.D. [id number]
[2020-07-25] MEDS: regadenoson 0.4 Mg/5 ml Syringe IVP (11:11)
--- NOTE | 2020-07-25 11:11 | SUR.PREOP ---
Patient reports no pain or discomfort prior to the start of the procedure.
[2020-07-25 11:34] VITALS: BP 116/69; PULSE 69
== END 2020-07-25 08:50 | disposition home or self-care (01) ==
LOC: CDL 08:51
PROVIDERS: Visit Provider Family Medicine
DX: R79.89 Other specified abnormal findings of blood chemistry (principal); E66.9 Obesity, unspecified; R06.83 Snoring
CPT/HCPCS: 78452; 93017; A9500; J2785

== ENCOUNTER 2020-08-06 20:00 | Outpatient (CLI) | payer MEDICAID, SELFPAY | END 2020-08-06 20:01 | disposition home or self-care (01) | LOC: SLEEP 08-07 10:34 | PROVIDERS: PCP Family Medicine; Visit Provider Family Medicine | DX: G47.33 Obstructive sleep apnea (adult) (pediatric) (principal) | CPT/HCPCS: 95810 ==

== ENCOUNTER → 2020-08-13 09:48 | Outpatient (BNVA) | payer MEDICAID, SELFPAY | PROVIDERS: PCP Family Medicine; Visit Provider Family Medicine | DX: Z13.6 Encounter for screening for cardiovascular disorders (principal) | CPT/HCPCS: 80053; 80061; 84153 ==

== ENCOUNTER 2020-08-20 07:26 | Outpatient (CLI) | payer MEDICAID, SELFPAY ==
--- NOTE | 2020-08-20 07:28 | NM_ITS ---
WS: [id number] NUCLEAR MEDICINE HIDA SCAN CLINICAL INFORMATION: ABD PAIN TECHNIQUE: Following intravenous administration of 7.9 mCi of technetium 99m mebrofenin, images of t he abdomen were obtained over the course of 60 minutes. Next, gallbladder ejection fraction was deter mined by obtaining preprandial and one-hour postprandial images of the gallbladder following oral ing estion of Ensure. COMPARISON: Ultrasound July 11, 2020 FINDINGS: Normal hepatic uptake at 5 minutes. Gallbladder is visualized by 15 minutes. No evidence of acute cho lecystitis. Normal small bowel and common bile duct activity. No evidence of choledocholithiasis. Gallbladder ejection fraction 58% within normal limits. No evidence of chronic cholecystitis. NM/NM hepatobiliary w phar* [id number] IMPRESSION: 1. Hepatomegaly. 2. No evidence of acute or chronic cholecystitis. 3. Gallbladder ejection fraction 58%.
== END 2020-08-20 07:27 | disposition home or self-care (01) ==
LOC: NM 07:26
PROVIDERS: PCP Family Medicine; Visit Provider Surgery
DX: R10.9 Unspecified abdominal pain (principal); R16.0 Hepatomegaly, not elsewhere classified
CPT/HCPCS: 78227; A9537

== ENCOUNTER 2020-08-21 08:43 | Outpatient (CLI) | payer MEDICAID, SELFPAY ==
--- NOTE | 2020-08-21 08:59 | USCV_ITS ---
Conrad Johnnie Age: 64 Gender: M : 1955 Exam Date: 08/21/2020 13:03 Ordering Phys: Yonatan Mayer M.D Technologist: Zelda Duran Exam Location: [facility] [place] Indication: DYSPNEA BP: 112 / 65 HR: 65 Rhythm: Sinus Technical Quality: Very limited MEASUREMENTS (Male / Female) Normal Values 2D ECHO LV Diastolic Diameter PLAX 4.5 cm 4.2 - 5.9 / 3.9 - 5.3 cm LV Systolic Diameter PLAX 4.0 cm IVS Diastolic Thickness 1.9 cm 0.6 - 1.0 / 0.6 - 0.9 cm IVS Systolic Thickness 2.0 cm LVPW Diastolic Thickness 2.7 cm 0.6 - 1.0 / 0.6 - 0.9 cm LVPW Systolic Thickness 2.8 cm LVOT Diameter 2.0 cm LV Ejection Fraction 2D Teich 24.2 % LV Ejection Fraction MOD 2C 73.1 % LV Ejection Fraction 2C AL 73.9 % LA Diameter 6.7 cm Aorta at Sinotubular Diameter 2.7 cm M-MODE LV Diastolic Diameter MM 5.3 cm 4.2 - 5.9 / 3.9 - 5.3 cm LV Systolic Diameter MM 4.7 cm LV Ejection Fraction MM Teich 23.8 % IVS Diastolic Thickness MM 1.2 cm 0.6 - 1.0 / 0.6 - 0.9 cm IVS Systolic Thickness MM 1.6 cm LVPW Diastolic Thickness MM 1.4 cm 0.6 - 1.0 / 0.6 - 0.9 cm LVPW Systolic Thickness MM 1.8 cm Aortic Annulus Diameter 3.9 cm LA Ao Ratio MM 1.7 MV E Point Septal Separation 0.5 cm DOPPLER TR Peak Velocity 197.0 cm/s TR Peak Gradient 15.5 mmHg TV Peak E Velocity 25.0 cm/s Right Atrial Pressure 3.0 mmHg Pulmonary Artery Systolic Pressu 18.5 mmHg PV Peak Velocity 68.0 cm/s RV Acceleration Time 0.2 s RV Ejection Time 0.3 s RV AcT/ET 0.5 FINDINGS Left Ventricle Technically difficult study because of poor ultrasonic windows and anatomic variation. The functional left ventricle has dyskinetic septum. Left ventricular ejection fraction is estimated at 20 to 25%. Severe global hypokinesis is noted. Right Ventricle The functional right ventricle is dilated with global hypokinesia and estimated ejection fraction of 35 to 40%.Pacemaker wire is noted. Right Atrium Moderately increased right atrial size. Pacemaker wire is noted. Left Atrium Moderate to severely increased left atrial size. Mitral Valve Functional mitral valve has eccentric at least moderate mitral regurgitation. Aortic Valve Morphology could not be delineated well because of limited visualization. Tricuspid Valve Functional tricuspid valve is grossly normal. There is mild tricuspid regurgitation noted. Insufficient TR jet to calculate RVSP. Pulmonic Valve Not well visualized. Pericardium Small pericardial effusion is noted. Aorta Not well visualized but grossly normal. CONCLUSIONS Technically difficult study because of poor ultrasonic windows and anatomic variation. Patient has congenitally corrected transposition. Functional left ventricle has dyskinetic septum. LV systolic function is severely reduced with EF of 20 to 25%. Functional right ventricle is dilated with global hypokinesia. Moderate to severely increased left atrial size. Functional mitral valve has eccentric at least moderate mitral regurgitation. Insufficient TR jet to calculate RVSP. Compared to prior echo from 03/24/2014, LV ejection fraction has decreased and is 20 to 25% now. Functional mitral valve has at least moderate regurgitation. Yonatan Mayer MD (Electronically Signed) Final Date: 30 August 2020 08:42 S
== END 2020-08-21 08:44 | disposition home or self-care (01) ==
LOC: RAD 08-22 08:44
PROVIDERS: PCP Family Medicine; Visit Provider Internal Medicine
DX: R06.00 Dyspnea, unspecified (principal); I34.0 Nonrheumatic mitral (valve) insufficiency
CPT/HCPCS: 93306

== ENCOUNTER 2020-08-30 09:48 | Inpatient (IN) | payer MEDICAID, SELFPAY ==
[2020-08-30] VITALS (10 sets, daily range): BP systolic 92–116; BP diastolic 54–76; PULSE 60–72; RESP 17–32; TEMP 36.7–36.9; O2SAT 94–100; BMI 39.0
--- NOTE | 2020-08-30 09:54 | ECG_ITS ---
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 Measurements Intervals [place] Rate: 60 P: [place]: -1 QRS: -82 QRSD: 222 T: 110 QT: 553 QTc: 553 Interpretive Statements ELECTRONIC VENTRICULAR PACEMAKER ABNORMAL RHYTHM ECG Compared to ECG 07/11/2020 14:28:04 Atrial fibrillation no longer present Electronically Signed On 08-30-2020 20:37:40 CDT by Philip Lopez M.D. [id number]
--- NOTE | 2020-08-30 09:55 | XR_ITS ---
WS: [id number] Portable AP upright chest, 08/30/2020 Clinical Data: dyspnea Comparison: PA and lateral chest, 07/11/2020. Findings: The heart remains enlarged. There is a small right pleural effusion. The pulmonary vascular ity is slightly increased. The 2-lead pacemaker remains in the same position with the generator overl mo the left upper chest. The aortic arch shows calcification. There is a monitor lead over the righ t chest wall. XR/XR chest 1V portable [id number] Impression: 1. No change in cardiomegaly. 2. Minimal pulmonary vascular congestion and right pleural effusion. 3. No change in prominent pacemaker.
[2020-08-30 10:19] LABS: Basophils % 0.6 %; Eosinophils # 0.2 10^3/uL (0.0-0.8); Eosinophils % 2.2 %; Hematocrit 33.9 % (42.0-52.0); Hemoglobin 10.1 g/dL (11.7-16.6); Lymphocytes # 0.8 10^3/uL (0.8-4.8); Lymphocytes % 11.4 %; Mean Corpuscular HGB Conc 29.8 g/dL (30.0-36.0); Mean Corpuscular Hemoglobin 22.6 pg (28.0-34.0); Mean Corpuscular Volume 75.8 fL (80-94); Mean Platelet Volume 9.7 fL (7.4-10.4); Monocytes # 0.5 10^3/uL (0.2-0.9); Monocytes % 6.9 %; Neutrophils # 5.71 10^3/uL (1.8-7.7); Neutrophils % 78.8 %; Nucleated Red Blood Cells % 0 %; Platelet Count 272 10^3/cmm (130-400); Red Blood Count 4.47 10^6/uL (4.1-5.3); Red Cell Distribution Width 21.2 % (12.1-15.1); White Blood Count 7.3 10^3/uL (4.0-10.0)
[2020-08-30 10:41] LABS: Troponin(5th) Baseline 38 ng/L (0-15)
[2020-08-30 10:48] LABS: Alanine Aminotransferase 18 U/L (0-41); Albumin Level 4.2 g/dL (3.5-5.2); Alkaline Phosphatase 190 IU/L (40-130); Anion Gap 16.5 (5-19); Aspartate Amino Transferase 23 U/L (0-40); Blood Urea Nitrogen 23 mg/dL (8-23); Calcium 9.9 mg/dL (8.5-10.5); Carbon Dioxide 26 mmol/L (22-29); Chloride 92 mmol/L (98-107); Globulin 3.1 g/dL (1.3-4.6); Glomerular Filtration Rate 38.4 mL/min (90-130); Glucose 119 mg/dL (65-115); NT Pro B Type Natriuretic Pept 4547 pg/mL (0-125); Osmolality Calculated 277 mOsm/kg (285-295); Potassium 3.5 mmol/L (3.5-5.1); Sodium 131 mmol/L (136-145); Total Bilirubin 3.1 mg/dL (0.15-1.2); Total Protein 7.3 g/dL (6.6-8.7)
[2020-08-30] MEDS: FUROsemide 10 mg/mL SDV 10mL 100 MG IVP ×2 (11:49→23:17)
--- NOTE | 2020-08-30 11:53 | W.ED.SOB ---
HPI - SOB/Dyspnea General: Chief Complaint: Shortness of Breath/Dyspnea Stated Complaint: SOB, SWELLING Time Seen by Provider: 08/30/20 09:50 History of Present Illness: HPI Narrative: This patient is a 64-year-old male who comes in today with shortness of breath. He said this is been going on for months and getting progressively worse. He saw Dr. Mayer 2 days ago and was put on an extra fluid pill. He said it has not done anything and he feels no better. He said he is never had a heart attack but his heart is all screwed up . He said he was told to come to the ER by Dr. Mayer today. He denies chest pain. He says he has been retaining way too much fluid. MD elicited complaint: shortness of breath Pertinent past history: congestive heart failure Onset (ago): month(s) Timing: constant Severity: severe Exacerbating factors: lying flat, exertion, movement and talking Relieving factors: nothing and upright position Known history of: congestive heart failure Associated symptoms: Reports orthopnea; Deny abdominal pain, chest pain, fever(s), nausea or vomiting Review of Systems General: Reports: 10 or more systems reviewed and unremarkable except in HPI and below Const: Denies: fever(s), chills, fatigue or malaise Eyes: Denies: change in vision ENMT: Denies: odynophagia Card: Reports: edema, swelling of feet/ankles, dyspnea on exertion and orthopnea; Denies: chest pain Resp: Reports: dyspnea; Denies: productive cough or non-productive cough GI: Denies: abdominal pain, nausea or vomiting : Denies: flank pain Musc: Denies: neck pain or back pain Skin/Breast: Denies: rash Neuro: Denies: headache(s), numbness in extremities or weakness in extremities Loc/Lymph: Denies: easy bruising or easy bleeding PFSH ED PFSH: Medical History 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 GERD (gastroesophageal reflux disease) H/O fracture of arm Heart block, congenital Mitral regurgitation Tricuspid valve disease Surgical History Status cardiac pacemaker Family History Mother Diabetes Social History Smoking and tobacco status: current every day smoker cigarettes Packs smoked per day: 0.5 Alcohol intake: former Marital status: service: No Current occupational status: disabled Physical Exam Const: COMMON NORMALS: patient oriented x3, no limitations and alert GENERAL APPEARANCE: cooperative HENMT: HEAD & SCALP: normal to inspection FACE & SINUS: normal facial exam Eye: GENERAL EYE: appearance normal, both eyes and all related structures Neck/C-Spine: COMMON NORMALS: supple, no meningeal signs and no JVD Chest: COMMONS NORMALS: normal inspection of the chest Resp: COMMON NORMALS: normal respiratory effort, No use of accessory muscles and clear to auscultation bilaterally AUSCULTATION: clear to auscultation bilaterally Cardio: COMMON NORMALS: no JVD, regular rate, regular rhythm and No murmurs present (Cardio) RATE: regular rate RHYTHM: regular rhythm GI: COMMON NORMALS: Soft to palpation and non-tender INSPECTION: Yes normal to inspection, Yes Abdominal wall edema (4+) and Yes Anasarca AUSCULTATION: Yes normoactive bowel sounds PALPATION: Yes Soft to palpation Back/Pelvis: COMMON NORMALS: thoracic and lumbar spine normal to inspection Extremity: GENERAL: Yes edema (4+) Neuro: COMMON NORMALS: patient oriented x3, moves all extremities, no focal motor deficits and no sensory deficits noted SENSORIUM/ORIENTATION: Yes alert MENINGEAL SIGNS: Yes no meningeal signs Psych: COMMON NORMALS: mental status grossly normal, cooperative and normal affect Skin: COMMON NORMALS: no rashes or lesions noted and turgor normal GENERAL SKIN EXAM: no rashes or lesions noted and turgor normal Course ED course: This patient has marked anasarca. He has a history of an enlarged heart and some sort of congenital defect. A recent echo did show an EF of 57%. He had an abnormal stress test recently as well. He has a pacemaker. He has not been getting any better with adjustments to medication at home and will need to come into the hospital for diuresis. Vital Signs: Vital signs: Vital Signs Temperature 98.1 F 08/30/20 09:50 Pulse Rate 62 10/02/20 11:52 Respiratory Rate 32 H 08/30/20 11:52 Blood Pressure 96/63 08/30/20 11:52 Pulse Oximetry 98 08/30/20 11:52 MDM - SOB/Dyspnea Lab Data: Labs: Lab Results 08/30/20 08/30/20 08/30/20 Range/Units 10:05 10:05 10:05 WBC 7.3 (4.0-10.0) 10^3/ uL RBC 4.47 (4.1-5.3) 10^6/u L Hgb 10.1 L (11.7-16.6) g/dL Hct 33.9 L (42.0-52.0) % MCV 75.8 L (80-94) fL MCH 22.6 L (28.0-34.0) pg MCHC 29.8 L (30.0-36.0) g/dL RDW 21.2 H (12.1-15.1) % Plt Count 272 (130-400) 10^3/c mm MPV 9.7 (7.4-10.4) fL Neut % (Auto) 78.8 % Lymph % (Auto) 11.4 % [place] % (Auto) 6.9 % Eos % (Auto) 2.2 % Baso % (Auto) 0.6 % Neut # (Auto) 5.71 (1.8-7.7) 10^3/u L Lymph # (Auto) 0.8 (0.8-4.8) 10^3/u L [place] # (Auto) 0.5 (0.2-0.9) 10^3/u L Eos # (Auto) 0.2 (0.0-0.8) 10^3/u L Baso # (Auto) 0.0 (0.0-0.1) 10^3/u L Nucleated RBC % (a uto) 0 % Nucleated RBCs # 0.0 /100WBC Sodium 131 L (136-145) mmol/L Potassium 3.5 (3.5-5.1) mmol/L Chloride 92 L (98-107) mmol/L Carbon Dioxide 26 (22-29) mmol/L Anion Gap 16.5 (5-19) BUN 23 (8-23) mg/dL Creatinine 1.8 H (0.7-1.2) mg/dL GFR Calculation 38.4 L (90-130) mL/min Glucose 119 H (65-115) mg/dL Calculated Osmolal ity 277 L (285-295) mOsm/k g Calcium 9.9 (8.5-10.5) mg/dL Total Bilirubin 3.1 H (0.15-1.2) mg/dL AST 23 (0-40) U/L ALT 18 (0-41) U/L Alkaline Phosphata se 190 H (40-130) IU/L Troponin T Baselin e 38 H (0-15) ng/L Troponin T 120 Min [place] (0-15) ng/L Delta Troponin T (0-10) ABS# NT-Pro-B Natriuret Pep 4547 H (0-125) pg/mL Total Protein 7.3 (6.6-8.7) g/dL Albumin 4.2 (3.5-5.2) g/dL Globulin 3.1 (1.3-4.6) g/dL 08/30/20 Range/Units 12:10 WBC (4.0-10.0) 10^3/ uL RBC (4.1-5.3) 10^6/u L Hgb (11.7-16.6) g/dL Hct (42.0-52.0) % MCV (80-94) fL MCH (28.0-34.0) pg MCHC (30.0-36.0) g/dL RDW (12.1-15.1) % Plt Count (130-400) 10^3/c mm MPV (7.4-10.4) fL Neut % (Auto) % Lymph % (Auto) % [place] % (Auto) % Eos % (Auto) % Baso % (Auto) % Neut # (Auto) (1.8-7.7) 10^3/u L Lymph # (Auto) (0.8-4.8) 10^3/u L [place] # (Auto) (0.2-0.9) 10^3/u L Eos # (Auto) (0.0-0.8) 10^3/u L Baso # (Auto) (0.0-0.1) 10^3/u L Nucleated RBC % (a uto) % Nucleated RBCs # /100WBC Sodium (136-145) mmol/L Potassium (3.5-5.1) mmol/L Chloride (98-107) mmol/L Carbon Dioxide (22-29) mmol/L Anion Gap (5-19) BUN (8-23) mg/dL Creatinine (0.7-1.2) mg/dL GFR Calculation (90-130) mL/min Glucose (65-115) mg/dL Calculated Osmolal ity (285-295) mOsm/k g Calcium (8.5-10.5) mg/dL Total Bilirubin (0.15-1.2) mg/dL AST (0-40) U/L ALT (0-41) U/L Alkaline Phosphata se (40-130) IU/L Troponin T Baselin e (0-15) ng/L Troponin T 120 Min [place] 36.07 H (0-15) ng/L Delta Troponin T -1.93 L (0-10) ABS# NT-Pro-B Natriuret Pep (0-125) pg/mL Total Protein (6.6-8.7) g/dL Albumin (3.5-5.2) g/dL Globulin (1.3-4.6) g/dL Discharge Plan Discharge Patient Disposition: Admitted As Inpatient Clinical Impression: Congestive heart failure Qualifiers: Heart failure type: unspecified Heart failure chronicity: acute on chronic Qualified Code(s): I50.9 - Heart failure, unspecified Condition: Stable Referrals: India Malagon DO [Primary Care Provider] - Coding Level of Care Code ED [facility] for [facility] Fwd Exam Comprehensive
--- NOTE | 2020-08-30 11:54 | ECG_ITS ---
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 Measurements Intervals [place] Rate: 60 P: CA: -1 QRS: 270 QRSD: 230 T: 101 QT: 546 QTc: 548 Interpretive Statements ELECTRONIC VENTRICULAR PACEMAKER ABNORMAL RHYTHM ECG Compared to ECG 07/11/2020 14:28:04 Atrial fibrillation no longer present Electronically Signed On 08-30-2020 20:40:07 CDT by Philip Lopez M.D. [id number] f
[2020-08-30 12:53] LABS: Troponin 5 2HR 36.07 ng/L (0-15)
[2020-08-30 12:59] LABS: Troponin 5 2HR Delta -1.93 ABS# (0-10)
[2020-08-30 13:45] LABS: Add Urine Microscopic? NO
[2020-08-30 13:50] LABS: Urine Color Yellow (Yellow)
[2020-08-30 13:51] LABS: Bilirubin Urine Neg (Negative); Blood Urine Neg (Negative); Glucose Urine UA Norm (Normal); Ketones Urine Negative (Negative); Leukocyte Esterase Urine Negative (Negative); Nitrate Urine Negative (Negative); Protein Urine Neg (Negative); Urine Appearance Clear (CLEAR); Urobilinogen Urine 4 mg/dL (Negative); pH Urine 7 (5-7)
--- NOTE | 2020-08-30 14:32 | P.HP_ITS ---
Providers/Chief Complaint Admitting Physician: Mila Alejandre MD Primary Care Provider: India Malagon DO Chief Complaint: SOB, SWELLING History of Present Illness Johnnie Martines is a 64 year old male with past medical history of congenitally corrected transposition of great vessels. He has congenital complete heart block for which a pacemaker in place. Last known EF 25% as of last echo on 08/21. He presents today c/o worsening dyspnea on exertion since the past 2-3 weeks which was worsened to the point of minimal movement. His lasix was recently increased to 80mg TID and metolazone was added, however he states he has not had significant relief. 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 CXR showed Minimal pulmonary vascular congestion and right pleural effusion. BNP elevated to 4500. He is currently saturating 97% on RA Review of Systems General: Reports: 10 or more systems reviewed and unremarkable except in HPI and below Const: Denies: fever(s), chills or body aches Eyes: Denies: change in vision, blurry vision or photophobia ENMT: Reports: hoarseness; Denies: throat pain, enlarged tonsils, odynophagia or nasal congestion Card: Denies: chest pain, palpitations, irregular heart rhythm, edema, swelling of feet/ankles, lightheadedness, pre-syncope, dyspnea on exertion or orthopnea Resp: Denies: dyspnea, productive cough, non-productive cough, wheezing, stridor, pain on inspiration, change in phlegm color, hemoptysis or chest congestion GI: Denies: abdominal pain, nausea, vomiting, hematemesis, coffee ground emesis, dysphagia, heartburn, diarrhea, constipation, GI cramping, change in stool character, hematochezia or melena : Denies: flank pain, dysuria, urinary frequency, urinary urgency, urinary hesitancy or hematuria Musc: Denies: neck pain, back pain, extremity pain, joint swelling, joint warmth or deformity Neuro: Denies: headache(s), numbness in extremities, weakness in extremities, sensory changes, difficulty walking, frequent falls, dizziness, vertigo, behavi oral changes, Slurred speech present or seizure-like activity Psych: Denies: anxiety, depression, suicidal ideation or homicidal ideation Endo: Denies: polyuria, polydipsia, tired all the time, cold intolerance or hot flashes Loc/Lymph: Denies: easy bruising or easy bleeding Medications/Allergies Home Medications Medication Instructions Recorded Confirmed Last Taken Type spironolactone 50 mg tablet 50 mg PO DAILY 90 Days #90 tab 04/09/20 08/30/20 08/29/20 Rx aspirin 81 mg tablet,delayed 81 mg PO DAILY 04/10/20 08/30/20 08/29/20 History release lisinopril 5 mg tablet 5 mg PO DAILY 04/10/20 08/30/20 08/29/20 History magnesium oxide 400 mg PO DAILY 04/10/20 08/30/20 08/29/20 History potassium chloride 20 mEq 20 meq PO DAILY 90 Days #90 tab 04/11/20 08/30/20 08/29/20 Rx tablet,extended release(part/cryst) omeprazole 20 mg capsule,delayed 20 mg PO DAILY #90 cap 07/02/20 08/30/20 08/29/20 Rx release furosemide 80 mg tablet 80 mg PO TID tab 07/30/20 08/30/20 08/29/20 History metolazone 5 mg tablet 5 mg PO DAILY #90 tab 08/27/20 08/30/20 08/29/20 Rx Allergies Allergy/AdvReac Type Severity Reaction Status Date / Time No Known Allergies Allergy Verified 08/30/20 10:55 PFSH Acute PFSH: Medical History 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 GERD (gastroesophageal reflux disease) H/O fracture of arm Heart block, congenital Mitral regurgitation Tricuspid valve disease Surgical History Status cardiac pacemaker Family History Mother Diabetes Social History Smoking and tobacco status: current every day smoker cigarettes Packs smoked per day: 0.5 Alcohol intake: former Marital status: service: No Current occupational status: disabled Vitals/I&O/Wt Last Vital Signs Temp 98.1 F 08/30/20 09:50 Pulse 65 08/30/20 14:00 Resp 21 H 10/02/20 14:00 BP 105/59 08/30/20 14:00 Pulse Ox 100 08/30/20 14:00 Weight last 48 hrs Weight 116.573 kg Physical Exam Const: COMMON NORMALS: no acute distress, average body habitus, patient oriented x3, no limitations, alert and well nourished HENMT: COMMON NORMALS: normocephalic and atraumatic HEAD & SCALP: normocephalic and atraumatic Eye: COMMON NORMALS: Equal, round and reactive pupils present, EOMs intact bilaterally, conjunctivae normal and no scleral icterus CONJUNCTIVA: Yes conjunctivae normal PUPIL: Yes Equal, round and reactive pupils present Neck/C-Spine: COMMON NORMALS: no JVD Resp: COMMON NORMALS: normal respiratory effort, No retractions, No use of accessory muscles, clear to auscultation bilaterally and percussion normal AUSCULTATION: clear to auscultation bilaterally PERCUSSION: percussion normal Cardio: COMMON NORMALS: no JVD, regular rate, regular rhythm, S1 normal heart sound present, S2 normal heart sound present, No gallops present (Cardio), No clicks present (Cardio), No murmurs present (Cardio), No rub (Cardio) and Peripheral pulses 2+ throughout RATE: regular rate RHYTHM: regular rhythm HEART SOUNDS: S1 normal heart sound present and S2 normal heart sound present PERIPHERAL PULSES: Peripheral pulses 2+ throughout GI: COMMON NORMALS: Normal to inspection, nondistended, normoactive bowel sounds present, Soft to palpation, non-tender, No hepatosplenomegaly present, no masses and no bruits PALPATION: Yes Soft to palpation and Yes No hepatosplenomegaly present Extremity: COMMON NORMALS: normal to inspection, full ROM, capillary refill normal, no joint enlargement and no calf tenderness Neuro: COMMON NORMALS: patient oriented x3, CN's II-XII intact bilaterally, moves all extremities, no focal motor deficits, no sensory deficits noted, deep tendon reflexes 2+ bilaterally and gait normal SENSORIUM/ORIENTATION: Yes alert Psych: COMMON NORMALS: mental status grossly normal, Normal thought process present, cooperative, normal affect, speech normal, activity/motor behavior normal, denies hallucinations, denies homicidal ideation and denies suicidal ideation SPEECH: Yes normal speech THOUGHT PROCESS: Normal thought process present Skin: COMMON NORMALS: no rashes or lesions noted, no wounds, turgor normal, no jaundice, no petechiae and no mottling GENERAL SKIN EXAM: no rashes or lesions noted and turgor normal Data : 08/30/20 10:05 08/30/20 10:05 A&P Assessment and plan (1) Congestive heart failure: Status: Acute Qualifiers: Heart failure chronicity: acute on chronic Heart failure type: systolic Qualified Code(s): I50.23 - Acute on chronic systolic (congestive) heart failure (2) Heart block, congenital: Status: Acute (3) Congenitally corrected transposition of great vessels: Status: Acute (4) Mitral regurgitation: Status: Acute Qualifiers: Cardiac valve disease etiology: nonrheumatic Qualified Code(s): I34.0 - Nonrheumatic mitral (valve) insufficiency (5) Status cardiac pacemaker: Status: Acute Additional A&P Information Admit to CSU # Acute on chronic CHF exacerbation Lasix 100mg iv q12h, continue metolazone Continue ASA, metolazone and spirinolactone for now Monitor renal function and urine output closely pt refused rojas placement- encouraged to urinate in urinal to monitor output # SONIA, last cr from 2013 0.9, more ercently from Jun at 1.5 Closely monitor renal function, will need readjustment of diuretics if worsens # Transposition of great vessels ,surgically corrected # LE swelling, however also associated ertythema, pain to palpation left side, check LE duplex Full code Dvt ppx: Lovenox Attestations Medical Necessity Statement*: >2midnight admission anticpiated for management of worsenign CHF Coding Level of Care Code Acute Manager [employer] for Chg Fwd Diagnoses Congestive heart failure I50.23 Heart failure chronicity: acute on chronic Heart failure type: systolic Heart block, congenital Q24.6 Congenitally corrected transposition of great vessels Q20.5 Mitral regurgitation I34.0 Cardiac valve disease etiology: nonrheumatic Status cardiac pacemaker Z95.0
[2020-08-30] MEDS: enoxaparin 40 mg/0.4 mL Syringe SUBCUT (15:21)
--- NOTE | 2020-08-30 15:54 | ECG_ITS ---
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 Measurements Intervals [place] Rate: 67 P: [place]: -1 QRS: 269 QRSD: 221 T: 91 QT: 537 QTc: 570 Interpretive Statements ELECTRONIC VENTRICULAR PACEMAKER ABNORMAL RHYTHM ECG Compared to ECG 08/30/2020 10:34:03 No significant changes Electronically Signed On 08-30-2020 20:40:37 CDT by Philip Lopez M.D. [id number]
[2020-08-30 16:49] LABS: Troponin 5 6HR 37.31 ng/L (0-15)
[2020-08-30 16:51] LABS: Troponin 5 6HR Delta -0.69 ng/L (0-12)
[2020-08-31 03:46] VITALS: BP 105/64; PULSE 68; RESP 22; TEMP 36.4; O2SAT 96
[2020-08-31 04:32] LABS: Basophils # 0.1 10^3/uL (0.0-0.1); Basophils % 0.7 %; Eosinophils # 0.2 10^3/uL (0.0-0.8); Hematocrit 32.3 % (42.0-52.0); Hemoglobin 9.5 g/dL (11.7-16.6); Lymphocytes % 14.2 %; Mean Corpuscular HGB Conc 29.4 g/dL (30.0-36.0); Mean Corpuscular Hemoglobin 22.5 pg (28.0-34.0); Mean Corpuscular Volume 76.5 fL (80-94); Mean Platelet Volume 10.3 fL (7.4-10.4); Monocytes # 0.5 10^3/uL (0.2-0.9); Monocytes % 8.1 %; Neutrophils % 73.6 %; Nucleated Red Blood Cells % 0 %; Platelet Count 283 10^3/cmm (130-400); Red Blood Count 4.22 10^6/uL (4.1-5.3); Red Cell Distribution Width 21.2 % (12.1-15.1); White Blood Count 6.7 10^3/uL (4.0-10.0)
[2020-08-31 05:11] LABS: Alanine Aminotransferase 16 U/L (0-41); Albumin Level 4.1 g/dL (3.5-5.2); Alkaline Phosphatase 183 IU/L (40-130); Anion Gap 16.8 (5-19); Aspartate Amino Transferase 22 U/L (0-40); Blood Urea Nitrogen 30 mg/dL (8-23); Calcium 9.7 mg/dL (8.5-10.5); Carbon Dioxide 27 mmol/L (22-29); Chloride 90 mmol/L (98-107); Globulin 2.8 g/dL (1.3-4.6); Glucose 120 mg/dL (65-115); Osmolality Calculated 277 mOsm/kg (285-295); Potassium 3.8 mmol/L (3.5-5.1); Sodium 130 mmol/L (136-145); Total Bilirubin 3.1 mg/dL (0.15-1.2); Total Protein 6.9 g/dL (6.6-8.7)
[2020-08-31 07:16] VITALS: BP 107/63; PULSE 65; RESP 18; TEMP 36.6; O2SAT 96
[2020-08-31] MEDS: pantoprazole DR 40 mg Tablet PO (08:56)
[2020-08-31] MEDS: FUROsemide 10 mg/mL SDV 10mL 100 MG IVP ×2 (08:56→17:46)
[2020-08-31] MEDS: spironolactone 25 mg Tablet 50 MG PO (08:59)
[2020-08-31] MEDS: aspirin 81 mg EC Tablet PO (08:59)
[2020-08-31] MEDS: lisinopril 5 mg Tablet PO (08:59)
[2020-08-31] MEDS: metOLazone 5 MG Tablet PO (08:59)
[2020-08-31 10:41] VITALS: BP 96/57; PULSE 65; RESP 18; TEMP 36.4; O2SAT 94
--- NOTE | 2020-08-31 13:47 | PM.PN ---
Subjective Subjective: Interval history: No new complaints today. Total output is 4.9 L, net negative by 3.8 L. States he feels somewhat better today compared to yesterday. No acute overnight events. Medications: Reviewed: Yes Vitals/I&O/Wt Last Vital Signs Temp 97.5 F L 08/31/20 10:41 Pulse 65 08/31/20 10:41 Resp 18 08/31/20 10:41 BP 96/57 08/31/20 10:41 Pulse Ox 94 08/31/20 10:41 08/30/20 08/31/20 08/31/20 22:59 06:59 14:59 Intake Total 480 / 480 600 / 600 Output Total 1350 / 1350 1800 / 3150 1750 / 1750 Balance -1350 / -1350 -1320 / -2670 -1150 / -1150 Weight last 48 hrs Weight 109.361 kg Weight 116.573 kg Physical Exam Const: COMMON NORMALS: no acute distress, average body habitus, patient oriented x3, no limitations, alert and well nourished HENMT: COMMON NORMALS: normocephalic and atraumatic HEAD & SCALP: normocephalic and atraumatic Eye: COMMON NORMALS: Equal, round and reactive pupils present, EOMs intact bilaterally, conjunctivae normal and no scleral icterus CONJUNCTIVA: Yes conjunctivae normal PUPIL: Yes Equal, round and reactive pupils present Neck/C-Spine: COMMON NORMALS: no JVD Resp: COMMON NORMALS: normal respiratory effort, No retractions, No use of accessory muscles, clear to auscultation bilaterally and percussion normal AUSCULTATION: clear to auscultation bilaterally PERCUSSION: percussion normal Cardio: COMMON NORMALS: no JVD, regular rate, regular rhythm, S1 normal heart sound present, S2 normal heart sound present, No gallops present (Cardio), No clicks present (Cardio), No murmurs present (Cardio), No rub (Cardio) and Peripheral pulses 2+ throughout RATE: regular rate RHYTHM: regular rhythm HEART SOUNDS: S1 normal heart sound present and S2 normal heart sound present PERIPHERAL PULSES: Peripheral pulses 2+ throughout GI: COMMON NORMALS: Normal to inspection, nondistended, normoactive bowel sounds present, Soft to palpation, non-tender, No hepatosplenomegaly present, no masses and no bruits PALPATION: Yes Soft to palpation and Yes No hepatosplenomegaly present Extremity: COMMON NORMALS: normal to inspection, full ROM, capillary refill normal, no joint enlargement and no calf tenderness Neuro: COMMON NORMALS: patient oriented x3, CN's II-XII intact bilaterally, moves all extremities, no focal motor deficits, no sensory deficits noted, deep tendon reflexes 2+ bilaterally and gait normal SENSORIUM/ORIENTATION: Yes alert Psych: COMMON NORMALS: mental status grossly normal, Normal thought process present, cooperative, normal affect, speech normal, activity/motor behavior normal, denies hallucinations, denies homicidal ideation and denies suicidal ideation SPEECH: Yes normal speech THOUGHT PROCESS: Normal thought process present Skin: COMMON NORMALS: no rashes or lesions noted, no wounds, turgor normal, no jaundice, no petechiae and no mottling GENERAL SKIN EXAM: no rashes or lesions noted and turgor normal Data : 08/31/20 03:45 08/31/20 03:45 A&P Assessment and plan (1) Congestive heart failure: Status: Acute Qualifiers: Heart failure chronicity: acute on chronic Heart failure type: systolic Qualified Code(s): I50.23 - Acute on chronic systolic (congestive) heart failure (2) Heart block, congenital: Status: Acute (3) Congenitally corrected transposition of great vessels: Status: Acute (4) Mitral regurgitation: Status: Acute Qualifiers: Cardiac valve disease etiology: nonrheumatic Qualified Code(s): I34.0 - Nonrheumatic mitral (valve) insufficiency (5) Status cardiac pacemaker: Status: Acute Additional A&P Information Continue CSU level care # Acute on chronic CHF exacerbation Lasix 100mg iv q12h, continue metolazone 5mg po qd Cardiology consult with Dr. Mayer to oprimize diuretic regimen Continue ASA, metolazone and spirinolactone for now Monitor renal function and urine output closely , strict I/O # SONIA, last cr from 2013 0.9, more ercently from Jun at 1.5 cr stable today at 1.7 # Transposition of great vessels ,surgically corrected # LE swelling, LE duplex negative for DVT Full code Dvt ppx: Lovenox Attestations Medical Necessity Statement*: optimization of CHF Coding Level of Care Code Acute Financial Reporting Specialist for Chg Fwd Diagnoses Congestive heart failure I50.23 Heart failure chronicity: acute on chronic Heart failure type: systolic Heart block, congenital Q24.6 Congenitally corrected transposition of great vessels Q20.5 Mitral regurgitation I34.0 Cardiac valve disease etiology: nonrheumatic Status cardiac pacemaker Z95.0
[2020-08-31] MEDS: enoxaparin 40 mg/0.4 mL Syringe SUBCUT (15:38)
[2020-08-31 15:44] VITALS: BP 98/52; PULSE 62; RESP 20; TEMP 36.8; O2SAT 97
--- NOTE | 2020-08-31 16:13 | PM.CONSULT ---
Providers/Reason For Consult Consulting Physican/Specialty*: Yonatan Mayer MD/cardiology Reason for Consult*: CHF exacerbation Attending Physician: Mila Alejandre MD Primary Care Provider: India Malagon DO History of Present Illness History of Present Illness Johnnie Martines is a 64 year old male with past medical history of congenitally corrected TGA, congenital complete heart block and has a pacemaker in place. Cardiology was consulted as patient was admitted with congestive heart failure exacerbation. Patient was seen by us in the office few days ago on 27 August. At that time he was having increased shortness of breath and lower extremity edema. He was started on metolazone alongside with Lasix 80 mg 3 times daily. However patient did not have significant improvement and he was not able to lay down flat to sleep. He was sleeping sitting up in the chair because of significant shortness of breath. This has been going on for the last few weeks. With these complaints he came to the hospital. He was started on Lasix 100 mg twice daily IV. He has responded well. He is on room air currently and able to lay down. His creatinine is 1.7 today. Patient had a recent echocardiogram that showed an EF of 20 to 25%. This is a decrease compared with his prior echocardiogram. Moderate mitral regurgitation was also noted on the echo. Review of Systems Narrative: CONSTITUTIONAL: No fever chills weight loss or gain or night sweats. [] HEENT: Normocephalic, atraumatic.[] RESPIRATORY: No cough, sputum, hemoptysis or wheezing.[] CARDIOVASCULAR: Shortness of breath,ND, orthopnea, lower extremity edema no chest pain, presyncope or syncope. [] GI: no nausea vomiting diarrhea. [] COMMUNICATIONS TOWER CLIMBER: No numbness, tingling, weakness or loss of function in any part of the body. [] MUSCULOSKELETAL: No knee or joint pain or rashes. [] Meds/Allergies Home Medications and Allergies Home Medications Medication Instructions Recorded Confirmed Last Taken Type spironolactone 50 mg tablet 50 mg PO DAILY 90 Days #90 tab 04/09/20 08/30/20 08/29/20 Rx aspirin 81 mg tablet,delayed 81 mg PO DAILY 04/10/20 08/30/20 08/29/20 History release lisinopril 5 mg tablet 5 mg PO DAILY 04/10/20 08/30/20 08/29/20 History magnesium oxide 400 mg PO DAILY 04/10/20 08/30/20 08/29/20 History potassium chloride 20 mEq 20 meq PO DAILY 90 Days #90 tab 04/11/20 08/30/20 08/29/20 Rx tablet,extended release(part/cryst) omeprazole 20 mg capsule,delayed 20 mg PO DAILY #90 cap 07/02/20 08/30/20 08/29/20 Rx release furosemide 80 mg tablet 80 mg PO TID tab 07/30/20 08/30/20 08/29/20 History metolazone 5 mg tablet 5 mg PO DAILY #90 tab 08/27/20 08/30/20 08/29/20 Rx Allergies Allergy/AdvReac Type Severity Reaction Status Date / Time No Known Allergies Allergy Verified 08/30/20 10:55 Current Medications Current Medications Generic Name Dose Route Start Last Admin Trade Name Freq PRN Reason Stop Dose Admin Aspirin 81 mg 08/31/20 09:00 08/31/20 08:59 Aspirin Ec PO 81 mg DAILY BASSEM Administration Enoxaparin Sodium 40 mg 08/30/20 15:00 08/31/20 15:38 Lovenox SUBCUT 40 mg Q24H BASSEM Administration Lisinopril 5 mg 08/31/20 09:00 08/31/20 08:59 Prinivil PO 5 mg DAILY BASESM Administration Metolazone 5 mg 08/31/20 09:00 08/31/20 08:59 Zaroxolyn PO 5 mg DAILY BASSEM Administration Pantoprazole Sodium 40 mg 08/31/20 09:00 08/31/20 08:56 Protonix PO 40 mg DAILY BASSEM Administration Spironolactone 50 mg 08/31/20 09:00 08/31/20 08:59 Aldactone PO 50 mg DAILY BASSEM Administration PFSH Acute PFSH: Medical History 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 GERD (gastroesophageal reflux disease) H/O fracture of arm Heart block, congenital Mitral regurgitation Tricuspid valve disease Surgical History Status cardiac pacemaker Family History Mother Diabetes Social History Smoking and tobacco status: current every day smoker cigarettes Packs smoked per day: 0.5 Alcohol intake: former Marital status: service: No Current occupational status: disabled Vitals/I&O/Wt Last Vital Signs Temp 98.2 F 08/31/20 15:44 Pulse 62 08/31/20 15:44 Resp 20 H 08/31/20 15:44 BP 98/52 08/31/20 15:44 Pulse Ox 97 08/31/20 15:44 08/31/20 08/31/20 08/31/20 06:59 14:59 22:59 Intake Total 480 / 480 600 / 600 Output Total 1800 / 3150 1750 / 1750 Balance -1320 / -2670 -1150 / -1150 Weight last 48 hrs Weight 241 lb 1.6 oz Weight 257 lb Physical Exam Narrative: EXAM NARRATIVE: GENERAL: Patient is alert, awake and oriented x3. [] NECK: No jugular vein distension. [] HEENT: No cyanosis. No icterus. No pallor. [] HEART: Regular S1 and S2. Grade 4/6 systolic murmur, no rub or gallop. [] LUNGS: Clear to auscultate bilaterally. [] ABDOMEN: Soft, nontender and nondistended. Positive bowel sounds. No guarding, rebound or tenderness. [] CENTRAL NERVOUS SYSTEM: Grossly nonfocal. [] EXTREMITIES: Lower extremities with 1+ edema bilaterally. Pulses palpable in the lower extremities, both dorsalis pedis and posterior tibial. [] A&P Assessment and plan (1) Congestive heart failure: Status: Acute Qualifiers: Heart failure chronicity: acute on chronic Heart failure type: systolic Qualified Code(s): I50.23 - Acute on chronic systolic (congestive) heart failure (2) Heart block, congenital: Status: Acute (3) Congenitally corrected transposition of great vessels: Status: Acute (4) Mitral regurgitation: Status: Acute Qualifiers: Cardiac valve disease etiology: nonrheumatic Qualified Code(s): I34.0 - Nonrheumatic mitral (valve) insufficiency (5) Status cardiac pacemaker: Status: Acute Patient has responded well to IV diuretics. Continue Lasix IV 100 mg twice daily. Strict I&O's. If patient continues to respond, he will likely be ready to be discharged tomorrow. We will switch IV Lasix to p.o. tomorrow prior to discharge. Discharge dose of diuretics will be determined by his renal function in a.m. Continue metolazone and spironolactone for now. We will continue to follow. Thank you for involving us with the care of this patient. Coding Level of Care Code Acute Edging Supervisor for Chel Pinzon Diagnoses Congestive heart failure I50.23 Heart failure chronicity: acute on chronic Heart failure type: systolic Heart block, congenital Q24.6 Congenitally corrected transposition of great vessels Q20.5 Mitral regurgitation I34.0 Cardiac valve disease etiology: nonrheumatic Status cardiac pacemaker Z95.0
--- NOTE | 2020-08-31 18:47 | PC.NURSE ---
SHIFT SUMMARY PATIENT HAS OVERALL HAD A GOOD, UNEVENTFUL DAY. PATIENT SWELLING IS MINIMAL WITH NO PITTING. BILATERAL LOWER LOBES STILL HAVE MILD CRACKLES, HOWEVER OTHER LUNG DA SILVA ARE CLEAR TO AUSCULTATION. PATIENT HAS DIURESED 1400ML URINE THIS DAY SHIFT. NO COMPLAINTS NOTED OTHERWISE. BEDSIDE REPORT GIVEN TO NICHO CERVANTES.
[2020-08-31 18:52] VITALS: BP 88/53; PULSE 70; RESP 18; O2SAT 94
--- NOTE | 2020-08-31 19:19 | PC.NURSE ---
Patient resting in bed lying right lateral side. Patient able to self position. Assessment completed as documented. Instructed patient on timing of next dose of furosemide and patient expressed great thanks and understanding. Patient requesting to be able to sleep tonight with little interruption. Instructed patient on need for continued vital signs and assessments. Patient verbalized understanding. No distress observed at this time.
--- NOTE | 2020-08-31 21:36 | USR_ITS ---
PROCEDURE INFORMATION: Exam: US Duplex Lower Extremity Veins, Bilateral Exam date and time: 08/31/2020 6:28 AM Age: 64 years old Clinical indication: Swelling (edema) of limb; Lower extremity, bilateral; Additional info: Evalute for dvt TECHNIQUE: Imaging protocol: Real-time duplex ultrasound of the extremities with 2-D devi scale, color Doppler flow and spectral waveform analysis with image documentation. Complete exam focused on the bilateral lower extremity veins. COMPARISON: No relevant prior studies available. FINDINGS: Right deep veins: No deep venous thrombosis in the visualized right common femoral, profunda femorals, superficial femoral, popliteal, peroneal, or posterior tibial veins. Right superficial veins: Saphenofemoral junction is patent without thrombus. Left deep veins: No deep venous thrombosis in the visualized left common femoral, profunda femorals, superficial femoral, popliteal, or posterior tibial veins. Left superficial veins: Saphenofemoral junction is patent without thrombus. Lymph nodes: Fatty replaced inguinal lymph nodes. Soft tissues: Prominent subcutaneous edema. US/CV venous duplex [facility] [id number] IMPRESSION: No deep venous thrombosis in the visualized bilateral lower extremities.
[2020-09-01] VITALS: BP 112/68; PULSE 64; RESP 20; O2SAT 91
[2020-09-01] MEDS: nicotine 21 mg Patch 1 PATCH TRANSDERMA ×2 (02:54→08:56)
[2020-09-01 04:00] VITALS: BP 96/59; PULSE 63; RESP 24; TEMP 36.5; O2SAT 97
[2020-09-01 04:19] LABS: Basophils # 0.1 10^3/uL (0.0-0.1); Basophils % 0.8 %; Eosinophils # 0.2 10^3/uL (0.0-0.8); Eosinophils % 3.6 %; Hematocrit 30.5 % (42.0-52.0); Hemoglobin 9.1 g/dL (11.7-16.6); Lymphocytes # 0.9 10^3/uL (0.8-4.8); Lymphocytes % 14.7 %; Mean Corpuscular HGB Conc 29.8 g/dL (30.0-36.0); Mean Corpuscular Hemoglobin 22.4 pg (28.0-34.0); Mean Corpuscular Volume 75.1 fL (80-94); Mean Platelet Volume 10.1 fL (7.4-10.4); Monocytes # 0.6 10^3/uL (0.2-0.9); Monocytes % 8.8 %; Neutrophils # 4.59 10^3/uL (1.8-7.7); Neutrophils % 71.6 %; Nucleated Red Blood Cells % 0 %; Platelet Count 265 10^3/cmm (130-400); Red Blood Count 4.06 10^6/uL (4.1-5.3); White Blood Count 6.4 10^3/uL (4.0-10.0)
[2020-09-01 04:39] LABS: Alanine Aminotransferase 15 U/L (0-41); Albumin Level 3.9 g/dL (3.5-5.2); Alkaline Phosphatase 172 IU/L (40-130); Anion Gap 20.6 (5-19); Aspartate Amino Transferase 26 U/L (0-40); Blood Urea Nitrogen 37 mg/dL (8-23); Calcium 10.1 mg/dL (8.5-10.5); Carbon Dioxide 26 mmol/L (22-29); Chloride 89 mmol/L (98-107); Globulin 2.6 g/dL (1.3-4.6); Glucose 103 mg/dL (65-115); Osmolality Calculated 283 mOsm/kg (285-295); Potassium 3.6 mmol/L (3.5-5.1); Sodium 132 mmol/L (136-145); Total Bilirubin 2.9 mg/dL (0.15-1.2); Total Protein 6.5 g/dL (6.6-8.7)
[2020-09-01] MEDS: FUROsemide 10 mg/mL SDV 10mL 100 MG IVP (05:05)
[2020-09-01 06:49] VITALS: BP 103/56; PULSE 65; RESP 22; TEMP 36.4; O2SAT 98
[2020-09-01] MEDS: lisinopril 5 mg Tablet PO (08:56)
[2020-09-01] MEDS: pantoprazole DR 40 mg Tablet PO (08:56)
[2020-09-01] MEDS: aspirin 81 mg EC Tablet PO (08:56)
[2020-09-01 10:36] VITALS: BP 103/66; PULSE 63; RESP 21; TEMP 36.4; O2SAT 97
--- NOTE | 2020-09-01 10:46 | PM.PN ---
Subjective Subjective: Interval history: Patient has been doing well. He is close to euvolemic. He denies any complaints of shortness of breath pain or palpitations. His creatinine today was 2.0. Vitals/I&O/Wt Last Vital Signs Temp 97.5 F L 09/01/20 10:36 Pulse 63 09/01/20 10:36 Resp 21 H 09/01/20 10:36 BP 103/66 09/01/20 10:36 Pulse Ox 97 09/01/20 10:36 08/31/20 09/01/20 09/01/20 22:59 06:59 14:59 Intake Total 480 / 1080 280 / 1360 120 / 120 Output Total 550 / 2300 2650 / 4950 1175 / 1175 Balance -70 / -1220 -2370 / -3590 -1055 / -1055 Weight last 48 hrs Weight 234 lb 6.4 oz Weight 241 lb 1.6 oz Physical Exam Narrative: EXAM NARRATIVE: GENERAL: Patient is alert, awake and oriented x3. [] NECK: No jugular vein distension. [] HEENT: No cyanosis. No icterus. No pallor. [] HEART: Regular S1 and S2. Grade 4/6 systolic murmur, no rub or gallop. [] LUNGS: Clear to auscultate bilaterally. [] ABDOMEN: Soft, nontender and nondistended. Positive bowel sounds. No guarding, rebound or tenderness. [] CENTRAL NERVOUS SYSTEM: Grossly nonfocal. [] EXTREMITIES: Lower extremities with no significant edema bilaterally. Pulses palpable in the lower extremities, both dorsalis pedis and posterior tibial. [] Data : 09/01/20 03:38 09/01/20 03:38 A&P Assessment and plan (1) Congestive heart failure: Status: Acute Qualifiers: Heart failure chronicity: acute on chronic Heart failure type: systolic Qualified Code(s): I50.23 - Acute on chronic systolic (congestive) heart failure (2) Heart block, congenital: Status: Acute (3) Congenitally corrected transposition of great vessels: Status: Acute (4) Mitral regurgitation: Status: Acute Qualifiers: Cardiac valve disease etiology: nonrheumatic Qualified Code(s): I34.0 - Nonrheumatic mitral (valve) insufficiency (5) Status cardiac pacemaker: Status: Acute Patient has responded well to IV diuretics. He is almost euvolemic. Will recommend switching him to p.o. diuretics starting tomorrow. We will hold further diuretics for today. He can be started on furosemide 80 mg 3 times daily and metolazone 5 mg daily. BMP to be done in 3 days as outpatient. Patient can be discharged home cardiology standpoint with outpatient cardiology follow-up. Attestations Medical Necessity Statement*: Care expected to cross 2 midnights as needed IV diuretics. Coding Level of Care Code Acute Java Software Developer for Chel Pinzon Diagnoses Congestive heart failure I50.23 Heart failure chronicity: acute on chronic Heart failure type: systolic Heart block, congenital Q24.6 Congenitally corrected transposition of great vessels Q20.5 Mitral regurgitation I34.0 Cardiac valve disease etiology: nonrheumatic Status cardiac pacemaker Z95.0
--- NOTE | 2020-09-01 14:29 | P.DS_ITS ---
Discharge Providers Date of Admission: 08/30/20 12:58 Date of Discharge: September 01, 2020 Attending Provider at Admission: Mila Alejandre MD Attending Provider at Discharge: Mila Alejandre MD Primary Care Provider: India Malagon DO Diagnoses at Discharge Discharge Diagnosis (1) Congestive heart failure: Status: Acute Qualifiers: Heart failure chronicity: acute on chronic Heart failure type: systolic Qualified Code(s): I50.23 - Acute on chronic systolic (congestive) heart failure (2) Heart block, congenital: Status: Acute (3) Congenitally corrected transposition of great vessels: Status: Acute (4) Mitral regurgitation: Status: Acute Qualifiers: Cardiac valve disease etiology: nonrheumatic Qualified Code(s): I34.0 - Nonrheumatic mitral (valve) insufficiency (5) Status cardiac pacemaker: Status: Acute Reason for Visit Reason for Visit: SOB, SWELLING Hospital Course Discharge Summary: Johnnie Martines is a 64 year old male with past medical history of congenitally corrected transposition of great vessels. He has congenital complete heart block for which a pacemaker in place. Last known EF 25% as of last echo on 08/21. He presented c/o worsening dyspnea on exertion since the past 2-3 weeks which was worsened to the point of minimal movement. He was started on Lasix 100 mg twice daily IV in addition to the metolazone for acute on chronic CHF exacerbation to which he has responded well. He is on room air currently and able to lay down. Cardiology service was also consulted for optimization of diuretic regimen. Given that he is currently improved at this point, it has been elected that he can be discharged today continuing on Lasix 80 mg p.o. 3 times daily and metolazone 5 mg p.o. daily. He will get a repeat check of his BNP in the cardiology office in 3 to 4 days. He feels well at the time of discharge and back to his baseline. Physical Exam Narrative: EXAM NARRATIVE: GEN: Awake, alert and oriented, no acute distress CVS: S1S2 N RS: CTA B/L Abd: Soft, nt/nd , bs+ FINANCIAL INSTITUTION MANAGER: no focal neuro deficits Discharge Data Data Completed and Pending: Completed Studies During Hospitalization Category Date Time Status XR chest 1V francis ble [id number] Stat Exams 08/30/20 09:55 [place] [id number] Routin e Ultrasound 08/31/20 21:36 Completed Labs from last 24 hours 09/01/20 09/01/20 03:38 03:38 WBC 6.4 RBC 4.06 L Hgb 9.1 L Hct 30.5 L MCV 75.1 L MCH 22.4 L MCHC 29.8 L RDW 21.0 H Plt Count 265 MPV 10.1 Neut % (Auto) 71.6 Lymph % (Auto) 14.7 Randall % (Auto) 8.8 Eos % (Auto) 3.6 Baso % (Auto) 0.8 Neut # (Auto) 4.59 Lymph # (Auto) 0.9 Randall # (Auto) 0.6 Eos # (Auto) 0.2 Baso # (Auto) 0.1 Nucleated RBC % (a uto) 0 Nucleated RBCs # 0.0 Sodium 132 L Potassium 3.6 Chloride 89 L Carbon Dioxide 26 Anion Gap 20.6 H BUN 37 H Creatinine 2.0 H GFR Calculation 34.0 L Glucose 103 Calculated Osmolal ity 283 L Calcium 10.1 Total Bilirubin 2.9 H AST 26 ALT 15 Alkaline Phosphata se 172 H Total Protein 6.5 L Albumin 3.9 Globulin 2.6 Vitals: Last Vital Signs Temp 97.5 F L 09/01/20 10:36 Pulse 63 09/01/20 10:36 Resp 21 H 09/01/20 10:36 BP 103/66 09/01/20 10:36 Pulse Ox 97 09/01/20 10:36 Discharge Plan Discharge Patient Disposition: Home Condition: Stable Prescriptions: Continued potassium chloride [Klor-Con M20] 20 mEq tablet,ER particles/crystals 20 meq PO DAILY 90 Days Qty: 90 RF: 3 lisinopril 5 mg tablet 5 mg PO DAILY RF: 0 aspirin [Aspir-81] 81 mg tablet,delayed release (DR/EC) 81 mg PO DAILY RF: 0 magnesium oxide 400 mg magnesium capsule 400 mg PO DAILY RF: 0 metolazone 5 mg tablet 5 mg PO DAILY Qty: 90 RF: 3 furosemide 80 mg tablet 80 mg PO TID RF: 0 spironolactone 50 mg tablet 50 mg PO DAILY 90 Days Qty: 90 RF: 3 omeprazole 20 mg capsule,delayed release(DR/EC) 20 mg PO DAILY Qty: 90 RF: 3 Discharge Orders: Discharge Order (Routine); Ordered 09/01/20 Ordered By: Mila Alejandre Other Ambulatory Orders: Basic Metabolic Panel (Routine) Timeframe: 3 Days Facility: [facility] - Location: Lab - Main Lab Ordered By: Mila Alejandre Referrals: India Malagon DO [Primary Care Provider] - Yonatan Mayer M.D [Physician] - 4-7 days (in the next 3-4 days per cardiology ) Discharge Diet: Cardiac and Low Salt Discharge Activity: Resume usual activity Discharge Attestations Time Spent in Discharge Care*: less than 30 min Quality Metrics Clinical Quality Measures During this hospital stay, did patient experience: None Coding Level of Care Code Acute Soda Room Operator for g Fwd Diagnoses Congestive heart failure I50.23 Heart failure chronicity: acute on chronic Heart failure type: systolic Heart block, congenital Q24.6 Congenitally corrected transposition of great vessels Q20.5 Mitral regurgitation I34.0 Cardiac valve disease etiology: nonrheumatic Status cardiac pacemaker Z95.0
[2020-09-01 14:35] VITALS: BP 103/66; BP 114/64; PULSE 63; RESP 18; RESP 21; TEMP 36.4; O2SAT 100; O2SAT 97
--- NOTE | 2020-09-02 08:25 | PC.RESP ---
SMOKING CESSATION INFORMATION SENT TO PATIENT.
== END 2020-09-01 15:45 | disposition home or self-care (01) | DRG 291 ==
LOC: ER 12:36 → CSU 13:35
PROVIDERS: Emergency Medicine; Admitting Provider Student in an Organized Health Care Education/Training Program; PCP Family Medicine; Visit Provider Student in an Organized Health Care Education/Training Program
DX: I50.23 Acute on chronic systolic (congestive) heart failure (principal); Q24.6 Congenital heart block; N17.9 Acute kidney failure, unspecified; Z95.0 Presence of cardiac pacemaker; K21.9 Gastro-esophageal reflux disease without esophagitis; I08.1 Rheumatic disorders of both mitral and tricuspid valves; F17.210 Nicotine dependence, cigarettes, uncomplicated; F10.21 Alcohol dependence, in remission; Z79.82 Long term (current) use of aspirin
CPT/HCPCS: 12345; 36415; 71045; 80053; 81003; 83880; 84484; 85025; 93005; 93970; 96372; 96375; 99284; J1650; J1940

== ENCOUNTER → 2020-09-11 11:59 | Outpatient (BNVA) | payer MEDICAID, SELFPAY | PROVIDERS: PCP Family Medicine; Visit Provider Family Medicine | DX: D64.9 Anemia, unspecified (principal); D50.9 Iron deficiency anemia, unspecified; I50.23 Acute on chronic systolic (congestive) heart failure | CPT/HCPCS: 80048; 82728; 83550; 85025 ==

== ENCOUNTER 2020-10-09 08:46 | Inpatient (IN) | payer MEDICAID, SELFPAY ==
[2020-10-09] VITALS (11 sets, daily range): BP systolic 92–1087; BP diastolic 52–82; PULSE 60–71; RESP 16–24; TEMP 35.7–37.2; O2SAT 94–100; BMI 39.5; BMI 40.6
--- NOTE | 2020-10-09 08:50 | W.ED.SOB ---
HPI - SOB/Dyspnea General: Chief Complaint: Shortness of Breath/Dyspnea Stated Complaint: Sent by /take fluid off of heart Time Seen by Provider: 10/09/20 08:50 History of Present Illness: HPI Narrative: 64-year-old male comes in complaining of shortness of breath lower extremity swelling. He states he is here at the direction of his public relations supervisor for what he describes as to have fluid removed. He states he has had problems with congestive heart failure intermittently for the last 6 months and for the last month he has had worsening symptoms they have tried oral diuretics with no relief. He denies any chest pain. He states he seen Dr. Mayer yesterday and was advised to either come in last night or this morning. ER had not been notified of a direct admission. Reviewing the office notes the most recent office note is in draft status. MD elicited complaint: shortness of breath and cough Pertinent past history: congestive heart failure Onset (ago): month(s) Timing: constant and progressively worsening Severity: similar to previous episodes Exacerbating factors: lying flat and exertion Relieving factors: oxygen, rest and upright position Known history of: congestive heart failure Associated symptoms: Deny abdominal pain, chest congestion, chest pain, cough, diaphoresis, dizziness, extremity pain, fever(s), hemoptysis, lightheadedness, myalgias, nausea, orthopnea, palpitations, paresthesias, polydipsia, polyuria, rash, sense of impending doom, syncope or vomiting Treatment prior to arrival: none Review of Systems Const: Denies: fever(s) or diaphoresis ENMT: Denies: throat pain, ear or mastoid pain, nasal discharge or nasal congestion Card: Denies: chest pain, palpitations, lightheadedness, syncope or orthopnea Resp: Denies: hemoptysis or chest congestion GI: Denies: abdominal pain, nausea or vomiting : Denies: flank pain, dysuria, urinary frequency or urinary urgency Musc: Denies: extremity pain Skin/Breast: Denies: rash or pruritus Neuro: Denies: dizziness Endo: Denies: polyuria or polydipsia PFS ED PFSH: Medical History (Updated 10/09/20 @ 13:20 by Rustam Lackey DO) 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 GERD (gastroesophageal reflux disease) H/O fracture of arm Heart block, congenital Mitral regurgitation Tricuspid valve disease Surgical History Status cardiac pacemaker Family History Mother Diabetes Social History Smoking and tobacco status: current every day smoker cigarettes Packs smoked per day: 0.5 Alcohol intake: former Marital status: service: No Current occupational status: disabled Physical Exam Const: COMMON NORMALS: no acute distress GENERAL APPEARANCE: cooperative and comfortable ORIENTATION/CONSCIOUSNESS: Yes awake, Yes oriented to person, Yes oriented to place and Yes oriented to time HENMT: COMMON NORMALS: normocephalic, atraumatic and hearing grossly normal bilaterally HEAD & SCALP: normocephalic and atraumatic Neck/C-Spine: COMMON NORMALS: no JVD Lymph: LYMPHATIC: no lymphadenopathy noted and no lymphedema noted Resp: COMMON NORMALS: normal respiratory effort, No retractions, No use of accessory muscles and clear to auscultation bilaterally AUSCULTATION: clear to auscultation bilaterally Cardio: COMMON NORMALS: no JVD, regular rate, regular rhythm and No murmurs present (Cardio) RATE: regular rate RHYTHM: regular rhythm GI: COMMON NORMALS: Soft to palpation and No hepatosplenomegaly present AUSCULTATION: Yes normoactive bowel sounds PALPATION: Yes Soft to palpation, No Tenderness to palpation present (GI), No Guarding due to palpation present (GI) and Yes No hepatosplenomegaly present Extremity: GENERAL: Yes edema Neuro: SENSORIUM/ORIENTATION: Yes oriented to person, Yes oriented to place and Yes oriented to time Skin: COMMON NORMALS: no rashes or lesions noted GENERAL SKIN EXAM: no rashes or lesions noted Course Vital Signs: Vital signs: Vital Signs Temperature 97.8 F 10/09/20 12:32 Pulse Rate 60 10/09/20 12:32 Respiratory Rate 24 H 10/09/20 12:32 Blood Pressure 102/52 10/09/20 12:32 Pulse Oximetry 94 10/09/20 12:32 Discharge Plan Discharge Patient Disposition: Admitted As Inpatient Admit Provider: Yonatan Mayer Clinical Impression: Congestive heart failure (CHF) Condition: Stable Coding Level of Care Code ED Card Placer for Chel Pinzon
--- NOTE | 2020-10-09 09:06 | XRR_ITS ---
PROCEDURE INFORMATION: Exam: XR Chest, 1 View Exam date and time: 10/09/2020 9:25 AM Age: 64 years old Clinical indication: Cough and dyspnea; Prior surgery; Surgery type: Pacemaker; Additional info: Dyspnea/cough TECHNIQUE: Imaging protocol: XR of the chest Views: 1 view. COMPARISON: CR XR chest 1V portable [id number] 08/30/2020 10:06 AM FINDINGS: Tubes, catheters and devices: Atrioventricular pacemaker. Lungs: Interstitial prominence and mild airspace disease. Pleural space: No significant pleural effusion. Heart/Mediastinum: Marked cardiomegaly. Vasculature: Calcification of the thoracic aorta. Bones/joints: Mild degenerative change . XR/XR chest 1V portable [id number] IMPRESSION: Marked cardiomegaly, with interstitial prominence and mild airspace disease.
--- NOTE | 2020-10-09 09:07 | ECG_ITS ---
[facility] Test Date: 2020-10-09 Pat Name: Johnnie Martines Department: Room: Gender: Male Senior Cost Accountant: : 1955 Requested By: Rustam Bernard Order Number: [id number] MD: Yonatan Mayer M.D. Measurements Intervals [place] Rate: 52 P: WI: -1 QRS: 263 QRSD: 207 T: 96 QT: 537 QTc: 502 Interpretive Statements ELECTRONIC VENTRICULAR PACEMAKER Compared to ECG 10/09/2020 09:52:00 No significant changes Electronically Signed On 10-09-2020 17:26:52 REAL ESTATE ACQUISITION ANALYST by Yonatan Mayer M.D. [id number]
--- NOTE | 2020-10-09 09:10 | USCV_ITS ---
Johnnie Martines Age: 64 Gender: M : 1955 Exam Date: 10/09/2020 09:29 Ordering Phys: Rustam Lackey DO Technologist: Aquiles Mars [place]am Location[place] [facility] [place] Indication: LEG SWELLING PROCEDURES: Venous duplex imaging was performed in bilateral lower extremities. The following venous structures were evaluated: common femoral vein, profunda vein, proximal portion of the greater saphenous vein, superficial femoral vein, and the popliteal vein. In addition, the posterior tibial and peroneal trunk were evaluated. Serial compression, augmentation maneuvers, and spectral Doppler flow evaluation were performed. FINDINGS: Normal 2-D Doppler and augmentation and compressibility throughout the lower extremity venous structures. Additional imaging through the proximal calf veins also reveals no thrombus. Limited evaluation of the greater saphenous vein is patent with no thrombus.. There is an abnormal appearing lymph node in the lt groin 2.77x1.16x2.38cm CONCLUSIONS No evidence of right lower extremity DVT. No evidence of left lower extremity DVT. Enlarged left groin lymph node 2.7 x 1.16x 2.3cm non specific but may be reactive. Recommend clinical correlation Jimi Parrish MD (Electronically Signed) Final Date: 09 October 2020 16:45 S
[2020-10-09] MEDS: FUROsemide 10 mg/mL SDV 4mL 60 MG IVP (10:07)
[2020-10-09 10:23] LABS: Basophils % 0.5 %; Eosinophils # 0.5 10^3/uL (0.0-0.8); Eosinophils % 5.5 %; Hematocrit 37.2 % (42.0-52.0); Hemoglobin 10.9 g/dL (11.7-16.6); Lymphocytes # 0.7 10^3/uL (0.8-4.8); Lymphocytes % 8.1 %; Mean Corpuscular HGB Conc 29.3 g/dL (30.0-36.0); Mean Corpuscular Hemoglobin 24.8 pg (28.0-34.0); Mean Corpuscular Volume 84.5 fL (80-94); Mean Platelet Volume 9.9 fL (7.4-10.4); Monocytes # 0.7 10^3/uL (0.2-0.9); Monocytes % 7.8 %; Neutrophils # 6.51 10^3/uL (1.8-7.7); Neutrophils % 77.7 %; Nucleated Red Blood Cells % 0 %; Platelet Count 244 10^3/cmm (130-400); White Blood Count 8.4 10^3/uL (4.0-10.0)
[2020-10-09 10:36] LABS: Troponin(5th) Baseline 37 ng/L (0-15)
[2020-10-09 10:44] LABS: Blood Urea Nitrogen 22 mg/dL (8-23); Calcium 9.1 mg/dL (8.5-10.5); Carbon Dioxide 26 mmol/L (22-29); Chloride 96 mmol/L (98-107); Glomerular Filtration Rate 47.4 mL/min (90-130); Glucose 101 mg/dL (65-115); NT Pro B Type Natriuretic Pept 5176 pg/mL (0-125); Osmolality Calculated 281 mOsm/kg (285-295); Sodium 134 mmol/L (136-145)
--- NOTE | 2020-10-09 11:07 | ECG_ITS ---
[facility] Test Date: 2020-10-09 Pat Name: Johnnie Martines Department: Room: Gender: Male Vamp Presser: : 1955 Requested By: Rustam Bernard Order Number: [id number] MD: Yonatan Mayer M.D. Measurements Intervals Emerson Rate: 63 P: 117 CT: 173 QRS: 253 QRSD: 211 T: 96 QT: 534 QTc: 549 Interpretive Statements ELECTRONIC VENTRICULAR PACEMAKER Compared to ECG 08/30/2020 17:39:39 No significant changes Electronically Signed On 10-09-2020 10:17:40 MANAGER CHINESE by Yonatan Mayer M.D. [id number]
[2020-10-09] MEDS: diphenhydrAMINE 50 mg/mL SDV 1mL 25 MG IVP (11:37)
--- NOTE | 2020-10-09 11:57 | PC.NURSE ---
brought a recliner into room . Pt is more comfortable in a sitting position
--- NOTE | 2020-10-09 13:31 | PM.HP ---
Providers/Chief Complaint Admitting Physician: Yonatan Mayer M.D Primary Care Provider: India Malagon DO Chief Complaint: Shortness of breath/weight gain History of Present Illness Johnnie Martines is a 64 year old male with PMH of congenitally corrected Transposition of great arteries, congestive heart failure with EF of 20-25%, modearte to severe mitral regurgitation was seen in the office yesterday with increasing weight gain, shortness of breath and orthopnea. Patient had an increase in weight of about 15-20 pounds over the last 1 month. He has a pacemaker in place as well which on last check was functioning normally. He says that he has been having lower extremity edema. Patient is on Metolazone 5 mg daily and furosemide 80 mg TID. I saw him in the office yesterday and wanted to admit him however he wanted to go home and come back today for admission. In the ER he underwent venous duplex which did not show DVT. Review of Systems Const: Reports: change in sleep pattern; Denies: fever(s), chills, body aches or fatigue Eyes: Denies: change in vision ENMT: Denies: throat pain Card: Reports: swelling of feet/ankles, dyspnea on exertion, orthopnea, leg pain with exertion and acrocyanosis; Denies: chest pain, palpitations or irregular heart rhythm Resp: Reports: dyspnea; Denies: productive cough or non-productive cough GI: Denies: nausea, vomiting or heartburn : Denies: flank pain Musc: Denies: neck pain, back pain or joint pain Skin/Breast: Denies: rash or pruritus Neuro: Denies: headache(s), numbness in extremities, weakness in extremities, sensory changes or lack of coordination Psych: Denies: anxiety or depression Loc/Lymph: Reports: easy bruising and easy bleeding Medications/Allergies Home Medications Medication Instructions Recorded Confirmed Last Taken Type spironolactone 50 mg tablet 50 mg PO DAILY 90 Days #90 tab 04/09/20 10/09/20 10/08/20 Rx aspirin 81 mg tablet,delayed 81 mg PO DAILY 04/10/20 10/09/20 10/08/20 History release magnesium oxide 400 mg PO DAILY 04/10/20 10/09/20 08/29/20 History potassium chloride 20 mEq 20 meq PO DAILY 90 Days #90 tab 04/11/20 10/09/20 10/08/20 Rx tablet,extended release(part/cryst) furosemide 80 mg tablet 80 mg PO TID tab 07/30/20 10/09/20 10/08/20 History metolazone 5 mg tablet 5 mg PO DAILY #90 tab 08/27/20 10/09/20 10/08/20 Rx omeprazole 20 mg capsule,delayed 20 mg PO BID cap 09/11/20 10/09/20 10/08/20 History release ferrous sulfate 325 mg (65 mg 325 mg PO BID #180 tab 09/13/20 10/09/20 10/08/20 Rx iron) tablet lisinopril 5 mg tablet 5 mg PO DAILY #90 tab 09/20/20 10/09/20 10/08/20 Rx Allergies Allergy/AdvReac Type Severity Reaction Status Date / Time No Known Allergies Allergy Verified 10/09/20 09:56 PFSH Acute PFSH: Medical History (Updated 10/09/20 @ 15:08 by Yonatan Mayer M.D) 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 GERD (gastroesophageal reflux disease) H/O fracture of arm Heart block, congenital Mitral regurgitation Tricuspid valve disease Surgical History Status cardiac pacemaker Family History Mother Diabetes Social History Smoking and tobacco status: current every day smoker cigarettes Packs smoked per day: 0.5 Alcohol intake: former Marital status: service: No Current occupational status: disabled Vitals/I&O/Wt Last Vital Signs Temp 97.8 F 10/09/20 12:32 Pulse 60 10/09/20 12:32 Resp 24 H 10/09/20 12:32 BP 102/52 10/09/20 12:32 Pulse Ox 94 10/09/20 12:32 Weight last 48 hrs Weight 267 lb Weight 260 lb Physical Exam Const: COMMON NORMALS: patient oriented x3 ORIENTATION/CONSCIOUSNESS: Yes awake, Yes oriented to person, Yes oriented to place and Yes oriented to time HENMT: COMMON NORMALS: normocephalic Eye: COMMON NORMALS: Equal, round and reactive pupils present Resp: AUSCULTATION: crackles Cardio: COMMON NORMALS: S1 normal heart sound present and S2 normal heart sound present RATE: regular rate RHYTHM: regular rhythm HEART SOUNDS: Murmur heart sound present systolic GI: PALPATION: Yes Firmness to palpation present (GI) Extremity: OTHER: 2+ pitting edema bilaterally Neuro: COMMON NORMALS: patient oriented x3 Data : 10/09/20 09:55 10/09/20 09:55 A&P Assessment and plan (1) Congestive heart failure (CHF): Status: Acute (2) Moderate mitral regurgitation: Status: Acute (3) Mitral regurgitation: Status: Acute Qualifiers: Cardiac valve disease etiology: nonrheumatic Qualified Code(s): I34.0 - Nonrheumatic mitral (valve) insufficiency (4) Status cardiac pacemaker: Status: Acute (5) Congenital heart defect: Status: Acute (6) CKD (chronic kidney disease): Status: Acute (7) Acute on chronic congestive heart failure: Status: Acute Patient has been having recurrent CHF exacerbation episodes and was admitted last month. He has again regained about 15-20pounds of weight with marked shortness of breath and generalized edema. Start Lasix 80mg IV TID. Continue Metolazone BMP daily KCL replacement Strict I and Os. Cardiac diet He might require PK to further assess mitral regurgitation severity for future assessment of mitraclip Attestations Medical Necessity Statement*: Care expected to cross 2 midnights. 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
[2020-10-09] MEDS: FUROsemide 10 mg/mL SDV 10mL 80 MG IVP ×2 (14:18→21:28)
--- NOTE | 2020-10-09 14:20 | PC.NURSE ---
contacted Dr. Mayer to tell him pt blood pressure is 103/67. Dr. Mayer stated it was ok to go ahead and administer 80mg of Lasix.
[2020-10-09 15:45] LABS: Troponin 5 2HR 36.04 ng/L (0-15)
[2020-10-09 15:48] LABS: Troponin 5 2HR Delta -0.96 ABS# (0-10)
[2020-10-09] MEDS: ferrous sulfate EC 325 mg Tablet PO (18:07)
[2020-10-09] MEDS: heparin 5,000 unit/mL INJ 1 mL 5000 UNIT SUBCUT (18:07)
[2020-10-10] VITALS (7 sets, daily range): BP systolic 87–115; BP diastolic 50–78; PULSE 65–80; RESP 16–24; TEMP 35.9–36.6; O2SAT 93–99
[2020-10-10 05:23] LABS: Basophils % 0.5 %; Eosinophils # 0.6 10^3/uL (0.0-0.8); Eosinophils % 7.1 %; Hematocrit 37.9 % (42.0-52.0); Hemoglobin 10.9 g/dL (11.7-16.6); Lymphocytes # 0.8 10^3/uL (0.8-4.8); Lymphocytes % 8.6 %; Mean Corpuscular HGB Conc 28.8 g/dL (30.0-36.0); Mean Corpuscular Hemoglobin 24.4 pg (28.0-34.0); Mean Platelet Volume 10.2 fL (7.4-10.4); Monocytes # 0.7 10^3/uL (0.2-0.9); Monocytes % 7.9 %; Neutrophils # 6.65 10^3/uL (1.8-7.7); Neutrophils % 75.4 %; Nucleated Red Blood Cells % 0 %; Platelet Count 225 10^3/cmm (130-400); Red Blood Count 4.46 10^6/uL (4.1-5.3); White Blood Count 8.8 10^3/uL (4.0-10.0)
[2020-10-10] MEDS: heparin 5,000 unit/mL INJ 1 mL 5000 UNIT SUBCUT ×2 (05:46→18:06)
[2020-10-10 05:54] LABS: Anion Gap 20.5 (5-19); Blood Urea Nitrogen 25 mg/dL (8-23); Calcium 9.4 mg/dL (8.5-10.5); Carbon Dioxide 23 mmol/L (22-29); Chloride 96 mmol/L (98-107); Glomerular Filtration Rate 47.4 mL/min (90-130); Glucose 91 mg/dL (65-115); Osmolality Calculated 284 mOsm/kg (285-295); Potassium 4.5 mmol/L (3.5-5.1); Sodium 135 mmol/L (136-145)
--- NOTE | 2020-10-10 09:02 | PM.PN ---
Subjective Subjective: Interval history: Patient has been admitted with acute on chronic (reduced EF) heart failure. He has been diuresing well with Lasix IV 80mg TID and Metolazone PO daily. Per patient, he has been well. Denies complaints of chest pain, or palpitations. He is still short of breath but that has been improving. Vitals/I&O/Wt Last Vital Signs Temp 97.6 F 10/10/20 08:00 Pulse 68 10/10/20 08:00 Resp 17 10/10/20 08:00 BP 102/69 10/10/20 08:00 Pulse Ox 96 10/10/20 08:00 10/09/20 10/10/20 10/10/20 22:59 06:59 14:59 Intake Total 480 / 480 240 / 720 Output Total 300 / 300 950 / 1250 375 / 375 Balance 180 / 180 -710 / -530 -375 / -375 Weight last 48 hrs Weight 261 lb 9.6 oz Weight 267 lb Weight 260 lb Physical Exam Const: COMMON NORMALS: patient oriented x3 ORIENTATION/CONSCIOUSNESS: Yes awake, Yes oriented to person, Yes oriented to place and Yes oriented to time HENMT: COMMON NORMALS: normocephalic Eye: COMMON NORMALS: Equal, round and reactive pupils present Resp: AUSCULTATION: crackles Cardio: COMMON NORMALS: S1 normal heart sound present and S2 normal heart sound present RATE: regular rate RHYTHM: regular rhythm HEART SOUNDS: Murmur heart sound present systolic GI: PALPATION: Yes Firmness to palpation present (GI) Extremity: OTHER: 2+ pitting edema bilaterally Neuro: COMMON NORMALS: patient oriented x3 Data : 10/10/20 04:20 10/10/20 04:20 A&P Assessment and plan (1) Moderate mitral regurgitation: Status: Acute (2) Mitral regurgitation: Status: Acute Qualifiers: Cardiac valve disease etiology: nonrheumatic Qualified Code(s): I34.0 - Nonrheumatic mitral (valve) insufficiency (3) Status cardiac pacemaker: Status: Acute (4) Congenital heart defect: Status: Acute (5) CKD (chronic kidney disease): Status: Acute (6) Acute on chronic congestive heart failure: Status: Acute (7) Acute on chronic heart failure with reduced ejection fraction and diastolic dysfunction: Status: Acute Patient is responding well to IV diuresis Continue Lasix 80mg IV TID. Continue Metolazone BMP daily KCL replacement Strict I and Os. Low sodium diet He might require PK to further assess mitral regurgitation severity for future assessment of mitraclip Please call with questions. Attestations Medical Necessity Statement*: Care expected to cross 2 midnights. 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
[2020-10-10] MEDS: magnesium oxide 400 mg tablet PO (09:13)
[2020-10-10] MEDS: aspirin 81 mg EC Tablet PO (09:13)
[2020-10-10] MEDS: ferrous sulfate EC 325 mg Tablet PO ×2 (09:13→18:06)
[2020-10-10] MEDS: metOLazone 5 MG Tablet PO (09:13)
[2020-10-10] MEDS: potassium chloride ER 20 mEq Tablet PO (09:14)
[2020-10-10] MEDS: FUROsemide 10 mg/mL SDV 10mL 80 MG IVP ×3 (09:14→21:16)
[2020-10-10] MEDS: lisinopril 5 mg Tablet PO (09:14)
[2020-10-10] MEDS: spironolactone 25 mg Tablet 50 MG PO (09:14)
[2020-10-11] VITALS (9 sets, daily range): BP systolic 92–118; BP diastolic 52–61; PULSE 60–78; RESP 15–24; TEMP 35.7–36.7; O2SAT 92–99
[2020-10-11] MEDS: heparin 5,000 unit/mL INJ 1 mL 5000 UNIT SUBCUT ×2 (06:16→18:17)
--- NOTE | 2020-10-11 07:54 | PC.RESP ---
SMOKING CESSATION INFORMATION SENT TO PATIENT.
[2020-10-11 08:22] LABS: Blood Urea Nitrogen 27 mg/dL (8-23); Calcium 9.6 mg/dL (8.5-10.5); Carbon Dioxide 29 mmol/L (22-29); Chloride 93 mmol/L (98-107); Glomerular Filtration Rate 51.4 mL/min (90-130); Glucose 104 mg/dL (65-115); Osmolality Calculated 285 mOsm/kg (285-295); Sodium 135 mmol/L (136-145)
[2020-10-11 08:42] LABS: Anion Gap 17.4 (5-19); Potassium 4.4 mmol/L (3.5-5.1)
[2020-10-11] MEDS: spironolactone 25 mg Tablet 50 MG PO (09:20)
[2020-10-11] MEDS: aspirin 81 mg EC Tablet PO (09:21)
[2020-10-11] MEDS: metOLazone 5 MG Tablet PO (09:22)
[2020-10-11] MEDS: magnesium oxide 400 mg tablet PO (09:23)
[2020-10-11] MEDS: ferrous sulfate EC 325 mg Tablet PO ×2 (09:23→18:16)
[2020-10-11] MEDS: potassium chloride ER 20 mEq Tablet PO (09:25)
[2020-10-11] MEDS: lisinopril 5 mg Tablet PO (09:27)
[2020-10-11] MEDS: FUROsemide 10 mg/mL SDV 10mL 80 MG IVP ×3 (09:28→22:42)
[2020-10-11] MEDS: nicotine 21 mg Patch 1 PATCH TRANSDERMA (18:34)
[2020-10-11] MEDS: phenazopyridine 100 mg Tablet PO (18:35)
[2020-10-11] MEDS: diphenhydrAMINE 25 mg Capsule PO (18:35)
--- NOTE | 2020-10-11 22:04 | P.PN_ITS ---
Subjective Subjective: Interval history: Patient has been feeling better.Breathing is improving. He has been having itching. Vitals/I&O/Wt Last Vital Signs Temp 97.7 F 10/11/20 20:00 Pulse 60 10/11/20 20:00 Resp 24 H 10/11/20 20:00 BP 95/60 10/11/20 20:00 Pulse Ox 96 10/11/20 20:00 10/11/20 10/11/20 10/11/20 06:59 14:59 22:59 Intake Total 240 / 840 1200 / 1200 720 / 1920 Output Total 2425 / 5100 2900 / 2900 Balance -2185 / -4260 1200 / 1200 -2180 / -980 Weight last 48 hrs Weight 248 lb 14.4 oz Weight 261 lb 9.6 oz Physical Exam Narrative: EXAM NARRATIVE: Const COMMON NORMALS: patient oriented x3, patient's skin color appears jaundinced ORIENTATION/CONSCIOUSNESS: Yes awake, Yes oriented to person, Yes oriented to place and Yes oriented to time HENMT COMMON NORMALS: normocephalic Eye COMMON NORMALS: Equal, round and reactive pupils present Resp AUSCULTATION: crackles Cardio COMMON NORMALS: S1 normal heart sound present and S2 normal heart sound present RATE: regular rate RHYTHM: regular rhythm HEART SOUNDS: Murmur heart sound present systolic GI PALPATION: Yes Firmness to palpation present (GI) Extremity OTHER: 2+ pitting edema bilaterally Neuro COMMON NORMALS: patient oriented x3 Urinary Catheter Management^: Alex: Cath Placed During This Visit: yes Reason for Continuing Indwelling Catheter: Accurate Measurement of Urinary Output in Critically Ill Patients Urinary Catheter Date of Insertion: 10/10/20 Urinary Catheter Time of Insertion: 23:00 Data : 10/10/20 04:20 10/11/20 07:36 A&P Assessment and plan (1) Moderate mitral regurgitation: Status: Acute (2) Mitral regurgitation: Status: Acute Qualifiers: Cardiac valve disease etiology: nonrheumatic Qualified Code(s): I34.0 - Nonrheumatic mitral (valve) insufficiency (3) Status cardiac pacemaker: Status: Acute (4) Congenital heart defect: Status: Acute (5) CKD (chronic kidney disease): Status: Acute (6) Acute on chronic congestive heart failure: Status: Acute (7) Acute on chronic heart failure with reduced ejection fraction and diastolic dysfunction: Status: Acute Patient is responding well to IV diuresis Continue Lasix 80mg IV TID. Continue Metolazone Will check CMP today to assess liver enzymes as patient has been having itching and skin appears jaundiced KCL replacement Strict I and Os. Low sodium diet He might require PK at some point to further assess mitral regurgitation severity for future assessment of mitraclip At time of patient's discharge, we will send him on LifeVest as patient does not have ICD and has low EF with recent syncope Please call with questions. Attestations Medical Necessity Statement*: Care expected to cross 2 midnight. 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
[2020-10-11 23:03] LABS: Alanine Aminotransferase 12 U/L (0-41); Albumin Level 3.9 g/dL (3.5-5.2); Alkaline Phosphatase 191 IU/L (40-130); Blood Urea Nitrogen 36 mg/dL (8-23); Carbon Dioxide 24 mmol/L (22-29); Chloride 91 mmol/L (98-107); Globulin 2.9 g/dL (1.3-4.6); Glomerular Filtration Rate 47.4 mL/min (90-130); Glucose 93 mg/dL (65-115); Osmolality Calculated 280 mOsm/kg (285-295); Sodium 131 mmol/L (136-145); Total Bilirubin 2.8 mg/dL (0.15-1.2); Total Protein 6.8 g/dL (6.6-8.7)
[2020-10-11 23:08] LABS: Aspartate Amino Transferase 29 U/L (0-40)
[2020-10-11] MEDS: morphine 4 mg/mL SDV 1 mL 2 MG IVP (23:36)
[2020-10-12] VITALS: BP 93/58; PULSE 74; RESP 24; TEMP 36.4; O2SAT 96
--- NOTE | 2020-10-12 00:05 | PC.NURSE ---
Nurse noted a raised round hard spot on the back of patient's right shoulder blade, there was a small open area in the center of the wound, draining a moderate amount of purulent drainage. Area cleansed with NS and dry dressing applied. Dr. Glasgow notified and new orders for wound culture received. Wound culture collected and sent to lab.
[2020-10-12 04:00] VITALS: BP 102/64; PULSE 74; RESP 20; TEMP 36.4; O2SAT 100
[2020-10-12] MEDS: heparin 5,000 unit/mL INJ 1 mL 5000 UNIT SUBCUT ×2 (06:19→17:49)
[2020-10-12] MEDS: diphenhydrAMINE 25 mg Capsule PO ×2 (06:20→23:07)
[2020-10-12 06:59] LABS: Anion Gap 18.8 (5-19); Blood Urea Nitrogen 35 mg/dL (8-23); Calcium 10.6 mg/dL (8.5-10.5); Carbon Dioxide 31 mmol/L (22-29); Chloride 90 mmol/L (98-107); Glomerular Filtration Rate 47.4 mL/min (90-130); Glucose 105 mg/dL (65-115); Osmolality Calculated 288 mOsm/kg (285-295); Potassium 4.8 mmol/L (3.5-5.1); Sodium 135 mmol/L (136-145)
[2020-10-12 07:55] VITALS: BP 90/56; PULSE 59; RESP 18; TEMP 36.9; O2SAT 100
[2020-10-12] MEDS: magnesium oxide 400 mg tablet PO (08:44)
[2020-10-12] MEDS: spironolactone 25 mg Tablet 50 MG PO (08:44)
[2020-10-12] MEDS: aspirin 81 mg EC Tablet PO (08:45)
[2020-10-12] MEDS: ferrous sulfate EC 325 mg Tablet PO ×2 (08:45→17:49)
[2020-10-12] MEDS: lisinopril 5 mg Tablet PO (08:45)
[2020-10-12] MEDS: potassium chloride ER 20 mEq Tablet PO (08:45)
[2020-10-12] MEDS: FUROsemide 10 mg/mL SDV 10mL 80 MG IVP ×3 (08:45→23:08)
[2020-10-12] MEDS: metOLazone 5 MG Tablet PO (08:46)
[2020-10-12] MEDS: nicotine 21 mg Patch 1 PATCH TRANSDERMA (08:46)
--- NOTE | 2020-10-12 10:04 | P.PN_ITS ---
Subjective Subjective: Interval history: The patient is eating better. Continues to have the shortness of breath. Denies any chest pain or palpitations. No fever or chills. No cough. No other specific complaints. Medications: Reviewed: Yes Medication Review Details: Current Medications Aspirin (Aspirin 81 Mg Ec Tablet) 81 mg PO DAILY [facility] Last Admin: 10/12/20 08:45 Dose: 81 mg Documented by: Diphenhydramine HCl (Diphenhydramine 25 Mg Capsule) 25 mg PO Q6H PRN PRN Reason: ITCHING Last Admin: 10/12/20 06:20 Dose: 25 mg Documented by: Ferrous Sulfate (Ferrous Sulfate Ec 325 Mg Tablet) 325 mg PO BID [facility] Last Admin: 10/12/20 08:45 Dose: 325 mg Documented by: Furosemide (Furosemide 10 Mg/Ml Sdv 10ml) 80 mg IVP TID [facility] Last Admin: 10/12/20 08:45 Dose: 80 mg Documented by: Heparin Sodium (Beef Lung) (Heparin 5,000 Unit/Ml Inj 1 Ml) 5,000 unit SUBCUT Q12H [facility] Last Admin: 10/12/20 06:19 Dose: 5,000 unit Documented by: Lisinopril (Lisinopril 5 Mg Tablet) 5 mg PO DAILY [facility] Last Admin: 10/12/20 08:45 Dose: 5 mg Documented by: Magnesium Oxide (Magnesium Oxide 400 Mg Tablet) 400 mg PO DAILY [facility] Last Admin: 10/12/20 08:44 Dose: 400 mg Documented by: Metolazone (Metolazone 5 Mg Tablet) 5 mg PO DAILY [facility] Last Admin: 10/12/20 08:46 Dose: 5 mg Documented by: Nicotine (Nicotine 21 Mg Patch) 1 patch TRANSDERMA DAILY [facility] Last Admin: 10/12/20 08:46 Dose: 1 patch Documented by: Ondansetron HCl (Ondansetron 2 Mg/Ml Sdv 2 Ml) 4 mg IVP Q6H PRN PRN Reason: NAUSEA AND VOMITING Phenazopyridine HCl (Phenazopyridine 100 Mg Tablet) 100 mg PO TID PRN PRN Reason: DYSURIA Last Admin: 10/11/20 18:35 Dose: 100 mg Documented by: Potassium Chloride (Potassium Chloride Er 20 Meq Tablet) 20 meq PO DAILY [facility] Last Admin: 10/12/20 08:45 Dose: 20 meq Documented by: Spironolactone (Spironolactone 25 Mg Tablet) 50 mg PO DAILY [facility] Last Admin: 10/12/20 08:44 Dose: 50 mg Documented by: Vitals/I&O/Wt Last Vital Signs Temp 98.4 F 10/12/20 07:55 Pulse 59 L 10/12/20 07:55 Resp 18 10/12/20 07:55 BP 90/56 10/12/20 07:55 Pulse Ox 100 10/12/20 07:55 10/11/20 10/12/20 10/12/20 22:59 06:59 14:59 Intake Total 720 / 1920 480 / 2400 480 / 480 Output Total 3800 / 3800 2100 / 5900 Balance -3080 / -1880 -1620 / -3500 480 / 480 Weight last 48 hrs Weight 223 lb 12.8 oz Weight 248 lb 14.4 oz Physical Exam Narrative: EXAM NARRATIVE: GENERAL: The patient is alert and oriented times three. Not in any acute distress. HEENT: No significant pallor, icterus or lymphadenopathy.Oral cavity: There are no mucous membrane lesions. NECK: Trachea appears to be central. No masses noted. No JVD or thyromegaly appreciated. RESPIRATORY: Chest is symmetrical. No intercostals muscle retraction or any accessory muscle activation. There is no chest wall tenderness. Breath sounds are heard bilaterally. No rales or rhonchi heard. No evidence of any consolidation. BREASTS: Deferred. HEART: The heart sounds are normal. No S3 or S4. Soft systolic murmur in the left sternal border. No diastolic murmurs.. No pericardial rub ABDOMEN: Slightly distended. No evidence of any free fluid.. No tenderness. No organomegaly appreciated. Bowel sounds are normally heard. : Deferred. RECTAL: Deferred. LYMPHATIC: No lymphadenopathy noted in the neck or groin. EXTREMITIES: 1+ edema both lower extremities. No cyanosis. MUSCULOSKELETAL: No acute joint deformities or swelling SKIN: There are no significant rashes or ecchymosis NEUROPSYCHIATRIC: The patient is alert and oriented x3. Appears to be in a good mood. No tremors or rigidity noted. Urinary Catheter Management^: Alex: Cath Placed During This Visit: yes Reason for Continuing Indwelling Catheter: Accurate Measurement of Urinary Output in Critically Ill Patients Urinary Catheter Date of Insertion: 11/12/20 Urinary Catheter Time of Insertion: 23:00 Data : 10/10/20 04:20 10/13/20 05:13 Other Labs: Laboratory Last Values WBC 8.8 10^3/uL (4.0-10.0) 10/10/20 04:20 RBC 4.46 10^6/uL (4.1-5.3) 10/10/20 04:20 Hgb 10.9 g/dL (11.7-16.6) L 10/10/20 04:20 Hct 37.9 % (42.0-52.0) L 10/10/20 04:20 MCV 85.0 fL (80-94) 10/10/20 04:20 MCH 24.4 pg (28.0-34.0) L 10/10/20 04:20 MCHC 28.8 g/dL (30.0-36.0) L 10/10/20 04:20 RDW 27.0 % (12.1-15.1) H 10/10/20 04:20 Plt Count 225 10^3/cmm (130-400) 10/10/20 04:20 MPV 10.2 fL (7.4-10.4) 10/10/20 04:20 Neut % (Auto) 75.4 % 10/10/20 04:20 Lymph % (Auto) 8.6 % 10/10/20 04:20 Appling % (Auto) 7.9 % 10/10/20 04:20 Eos % (Auto) 7.1 % 10/10/20 04:20 Baso % (Auto) 0.5 % 10/10/20 04:20 Neut # (Auto) 6.65 10^3/uL (1.8-7.7) 10/10/20 04:20 Lymph # (Auto) 0.8 10^3/uL (0.8-4.8) 10/10/20 04:20 [place]ling # (Auto) 0.7 10^3/uL (0.2-0.9) 10/10/20 04:20 Eos # (Auto) 0.6 10^3/uL (0.0-0.8) 10/10/20 04:20 Baso # (Auto) 0.0 10^3/uL (0.0-0.1) 10/10/20 04:20 Nucleated RBC % (auto) 0 % 10/10/20 04:20 Nucleated RBCs # 0.0 /100WBC 10/10/20 04:20 Sodium 135 mmol/L (136-145) L 10/12/20 05:46 Potassium 4.8 mmol/L (3.5-5.1) 10/12/20 05:46 Chloride 90 mmol/L (98-107) L 10/12/20 05:46 Carbon Dioxide 31 mmol/L (22-29) H 10/12/20 05:46 Anion Gap 18.8 (5-19) 10/12/20 05:46 BUN 35 mg/dL (8-23) H 10/12/20 05:46 Creatinine 1.5 mg/dL (0.7-1.2) H 10/12/20 05:46 GFR Calculation 47.4 mL/min (90-130) L 10/12/20 05:46 Glucose 105 mg/dL (65-115) 10/12/20 05:46 Calculated Osmolality 288 mOsm/kg (285-295) 10/12/20 05:46 Calcium 10.6 mg/dL (8.5-10.5) H 10/12/20 05:46 Total Bilirubin 2.8 mg/dL (0.15-1.2) H 10/11/20 22:36 AST 29 U/L (0-40) 10/11/20 22:36 ALT 12 U/L (0-41) 10/11/20 22:36 Alkaline Phosphatase 191 IU/L (40-130) H 10/11/20 22:36 Troponin T Baseline 37 ng/L (0-15) H 10/09/20 09:55 Troponin T 120 Minute 36.04 ng/L (0-15) H 10/09/20 12:13 Delta Troponin T -0.96 ABS# (0-10) L 10/09/20 12:13 Troponin T Hi Sens 6Hr Cancelled 10/09/20 16:33 Troponin T Hi Sens 6Hr Delta Cancelled 10/09/20 16:33 NT-Pro-B Natriuret Pep 5176 pg/mL (0-125) H 10/09/20 09:55 Total Protein 6.8 g/dL (6.6-8.7) 10/11/20 22:36 Albumin 3.9 g/dL (3.5-5.2) 10/11/20 22:36 Globulin 2.9 g/dL (1.3-4.6) 10/11/20 22:36 Echo: My impression: Echocardiogram in July 2020 revealed technically difficult study because of poor ultrasonic windows and anatomic variation. Patient has congenitally corrected transposition. Functional left ventricle has dyskinetic septum. LV systolic function is severely reduced with EF of 20 to 25%. Functional right ventricle is dilated with global hypokinesia. Moderate to severely increased left atrial size. Functional mitral valve has eccentric at least moderate mitral regurgitation. Insufficient TR jet to calculate RVSP. Compared to prior echo from 03/24/2014, LV ejection fraction has decreased and is 20 to 25% now. Functional mitral valve has at least moderate regurgitation. A&P Assessment and plan (1) Acute on chronic heart failure with reduced ejection fraction and diastolic dysfunction: Patient seems to be responding to diuresis appropriately. We will continue on the IV Lasix. Be closely monitoring the electrolytes as well. Status: Acute (2) CKD (chronic kidney disease): Kidney function seems to be stable Status: Acute Qualifiers: Chronic kidney disease stage: stage 3 (moderate) Chronic kidney disease stage 3 subtype: stage 3a (GFR 45-59) Qualified Code(s): N18.31 - Chronic kidney disease, stage 3a (3) Moderate mitral regurgitation: No specific symptoms. Status: Acute (4) Congenitally corrected transposition of great vessels: Status: Acute (5) Status cardiac pacemaker: Pacemaker function seems appropriate. Status: Acute Additional A&P Information Other problems are Mild anemia Obesity Repeat BMP in the morning. 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
[2020-10-12 12:00] VITALS: BP 94/62; PULSE 61; RESP 18; TEMP 36.8; O2SAT 97
--- NOTE | 2020-10-12 12:22 | PC.CHAP ---
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 [] Patient/Family/Request visit [] Outpatient visit [] Follow-up visit [] Physician referral [] Code/Alert [] Routine visit [] Staff referral [] Actively dying [] Patient sleeping [] Family support [] [] Out of room [] Palliative care [] [] Receiving care in room [] Pre-surgical visit [] Trauma [] Long length of stay [] ICU visit [X] Other: Pt eating Relational/Emotional Strength [] Patient feels connected with others/family/visitors/staff [] Distress [] Loneliness/isolation [] Abandonment Spirituality of Patient [] Person of Gisela [] Attends Jehovah'S Witness of their Gisela [] Believes in Prayer [] Reads Bible or Jainism materials [] There are Spiritual issues to be addressed Sap Technical Developer Interventions [] Prayer [] Active listening [] Non-anxious presence [] Spiritual/emotional support [] Crisis/trauma care [] Spiritual counseling [] Bereavement support [] Provided bereavement packet [] Provided Bible/devotional materials [] Provided toy/stuffed animal, coloring book to patient or family member [] Provided Communion [] Anointing/[place] [] Salvation [] Completed spiritual assessment [] Other: Impact on Illness or Injury [] Angry [] Fearful [] Anxious [] Often cries [] Exhaustion [] Unable to work [] Unable to attend shinto [] Unable to walk/stand [] Unable to read [] Unable to drive [] Unable to eat/drink [] Unable to sleep [] Unable to be with family [] Patient intubated [] Other: Summary Time spent with patient
[2020-10-12 15:48] VITALS: BP 106/64; PULSE 61; RESP 18; TEMP 36.3; O2SAT 98
[2020-10-12 20:00] VITALS: BP 92/62; PULSE 66; RESP 24; TEMP 36.4; O2SAT 95
[2020-10-12] MEDS: cyclobenzaprine 10 mg Tablet 5 MG PO (23:07)
[2020-10-13] VITALS (10 sets, daily range): BP systolic 79–99; BP diastolic 44–61; PULSE 52–89; RESP 16–24; TEMP 36.4–36.6; O2SAT 94–97
--- NOTE | 2020-10-13 05:31 | PC.NURSE ---
Nurse changed right shoulder dressing. Moderate amount of purulent drainage noted. Wound cleansed with NS, patted dry, and 2x3 optifoam applied.
[2020-10-13 05:59] LABS: Anion Gap 18.4 (5-19); Blood Urea Nitrogen 38 mg/dL (8-23); Calcium 10.1 mg/dL (8.5-10.5); Carbon Dioxide 30 mmol/L (22-29); Chloride 88 mmol/L (98-107); Glomerular Filtration Rate 36.1 mL/min (90-130); Glucose 90 mg/dL (65-115); Osmolality Calculated 283 mOsm/kg (285-295); Potassium 4.4 mmol/L (3.5-5.1); Sodium 132 mmol/L (136-145)
[2020-10-13] MEDS: heparin 5,000 unit/mL INJ 1 mL 5000 UNIT SUBCUT ×2 (06:31→18:13)
--- NOTE | 2020-10-13 07:53 | PC.NURSE ---
I reported the low bp tot the nurse 81/47
[2020-10-13] MEDS: metOLazone 5 MG Tablet PO (08:21)
[2020-10-13] MEDS: potassium chloride ER 20 mEq Tablet PO (08:21)
[2020-10-13] MEDS: magnesium oxide 400 mg tablet PO (08:21)
[2020-10-13] MEDS: aspirin 81 mg EC Tablet PO (08:21)
[2020-10-13] MEDS: nicotine 21 mg Patch 1 PATCH TRANSDERMA (08:22)
[2020-10-13] MEDS: ferrous sulfate EC 325 mg Tablet PO ×2 (08:22→18:13)
[2020-10-13] MEDS: FUROsemide 10 mg/mL SDV 10mL 80 MG IVP ×2 (08:22→21:07)
--- NOTE | 2020-10-13 11:31 | PC.CHAP ---
Pastoral Care Encounter/Spiritual Assessment Type of Contact [] Declined bus escort visit [] Patient/Family/Request visit [] Outpatient visit [X] Follow-up visit [] Physician referral [] Code/Alert [X] Routine visit [] Staff referral [] Actively dying [] Patient sleeping [] Family support [] [] Out of room [] Palliative care [] [] Receiving care in room [] Pre-surgical visit [] Trauma [] Long length of stay [] ICU visit [] Other: Relational/Emotional Strength [X] Patient feels connected with others/family/visitors/staff [] Distress [] Loneliness/isolation [] Abandonment Spirituality of Patient [] Person of Gisela [] Attends Presybeterian of their Gisela [] Believes in Prayer [] Reads Bible or Caodaism materials [] There are Spiritual issues to be addressed Pot Sander Interventions [] Prayer [X] Active listening [] Non-anxious presence [] Spiritual/emotional support [] Crisis/trauma care [] Spiritual counseling [] Bereavement support [] Provided bereavement packet [] Provided Bible/devotional materials [] Provided toy/stuffed animal, coloring book to patient or family member [] Provided Communion [] Anointing/[place] [] Salvation [] Completed spiritual assessment [] Other: Impact on Illness or Injury [] Angry [] Fearful [] Anxious [] Often cries [] Exhaustion [] Unable to work [] Unable to attend jew [] Unable to walk/stand [] Unable to read [] Unable to drive [] Unable to eat/drink [] Unable to sleep [] Unable to be with family [] Patient intubated [] Other: Summary: Pt didn't really want to visit. He shared that he needs a new pacemaker and that the plan is to send him to [place] for that, but he does not know when that will take place. He seemed discouraged and frustrated, but I couldn't get him to open up more. He declined prayer and reading materials. Time spent with patient: 5 mins
--- NOTE | 2020-10-13 11:40 | PC.NURSE ---
patient laying 79/50 and 80/47. the patient sat on the side of the bed 94/61. i reported this to the nurse
[2020-10-13] MEDS: diphenhydrAMINE 25 mg Capsule PO (16:10)
--- NOTE | 2020-10-13 19:51 | P.PN_ITS ---
Subjective Subjective: Interval history: Patient is feeling better. His blood pressure was running in the 70s or low 80s this morning. For that reason, the lisinopril, Lasix and spironolactone was held. Patient denies any chest pain or shortness of breath. No unusual weakness or fatigue. No other specific complaints. Medications: Reviewed: Yes Medication Review Details: Current Medications Aspirin (Aspirin 81 Mg Ec Tablet) 81 mg PO DAILY [facility] Last Admin: 10/13/20 08:21 Dose: 81 mg Documented by: Diphenhydramine HCl (Diphenhydramine 25 Mg Capsule) 25 mg PO Q6H PRN PRN Reason: ITCHING Last Admin: 10/13/20 16:10 Dose: 25 mg Documented by: Ferrous Sulfate (Ferrous Sulfate Ec 325 Mg Tablet) 325 mg PO BID [facility] Last Admin: 10/13/20 18:13 Dose: 325 mg Documented by: Furosemide (Furosemide 10 Mg/Ml Sdv 10ml) 80 mg IVP TID [facility] Last Admin: 10/13/20 08:22 Dose: 80 mg Documented by: Heparin Sodium (Beef Lung) (Heparin 5,000 Unit/Ml Inj 1 Ml) 5,000 unit SUBCUT Q12H [facility] Last Admin: 10/13/20 18:13 Dose: 5,000 unit Documented by: Lisinopril (Lisinopril 5 Mg Tablet) 5 mg PO DAILY [facility] Last Admin: 10/13/20 08:25 Dose: Not Given Documented by: Magnesium Oxide (Magnesium Oxide 400 Mg Tablet) 400 mg PO DAILY [facility] Last Admin: 10/13/20 08:21 Dose: 400 mg Documented by: Metolazone (Metolazone 5 Mg Tablet) 5 mg PO DAILY [facility] Last Admin: 10/13/20 08:21 Dose: 5 mg Documented by: Nicotine (Nicotine 21 Mg Patch) 1 patch TRANSDERMA DAILY [facility] Last Admin: 10/13/20 08:22 Dose: 1 patch Documented by: Ondansetron HCl (Ondansetron 2 Mg/Ml Sdv 2 Ml) 4 mg IVP Q6H PRN PRN Reason: NAUSEA AND VOMITING Phenazopyridine HCl (Phenazopyridine 100 Mg Tablet) 100 mg PO TID PRN PRN Reason: DYSURIA Last Admin: 10/11/20 18:35 Dose: 100 mg Documented by: Potassium Chloride (Potassium Chloride Er 20 Meq Tablet) 20 meq PO DAILY [facility] Last Admin: 10/13/20 08:21 Dose: 20 meq Documented by: Spironolactone (Spironolactone 25 Mg Tablet) 50 mg PO DAILY [facility] Last Admin: 10/13/20 08:25 Dose: Not Given Documented by: Vitals/I&O/Wt Last Vital Signs Temp 97.8 F 10/13/20 16:00 Pulse 62 10/13/20 17:55 Resp 16 10/13/20 16:00 BP 96/61 10/13/20 17:55 Pulse Ox 97 10/13/20 16:00 10/13/20 10/13/20 10/13/20 06:59 14:59 22:59 Intake Total 240 / 960 360 / 360 240 / 600 Output Total 2025 / 5125 700 / 700 1000 / 1700 Balance -1785 / -4165 -340 / -340 -760 / -1100 Weight last 48 hrs Weight 232 lb 12.8 oz Weight 233 lb 4.8 oz Weight 223 lb 12.8 oz Physical Exam Narrative: EXAM NARRATIVE: GENERAL: The patient is alert and oriented times three. Not in any acute distress. HEENT: No significant pallor, icterus or lymphadenopathy.Oral cavity: There are no mucous membrane lesions. NECK: Trachea appears to be central. No masses noted. No JVD or thyromegaly appreciated. RESPIRATORY: Chest is symmetrical. No intercostals muscle retraction or any accessory muscle activation. There is no chest wall tenderness. Breath sounds are heard bilaterally. No rales or rhonchi heard. No evidence of any consolidation. BREASTS: Deferred. HEART: The heart sounds are normal. No S3 or S4. Soft systolic murmur in the left sternal border. No diastolic murmurs.. No pericardial rub ABDOMEN: Slightly distended. No evidence of any free fluid.. No tenderness. No organomegaly appreciated. Bowel sounds are normally heard. : Deferred. RECTAL: Deferred. LYMPHATIC: No lymphadenopathy noted in the neck or groin. EXTREMITIES: 1+ edema both lower extremities. No cyanosis. Chronic nonpitting edema with healed skin ulcerations MUSCULOSKELETAL: No acute joint deformities or swelling SKIN: There are no significant rashes or ecchymosis NEUROPSYCHIATRIC: The patient is alert and oriented x3. Appears to be in a good mood. No tremors or rigidity noted. Urinary Catheter Management^: Alex: Cath Placed During This Visit: yes Reason for Continuing Indwelling Catheter: Not indwelling catheter Urinary Catheter Date of Insertion: 10/10/20 Urinary Catheter Time of Insertion: 23:00 Data : 10/10/20 04:20 10/13/20 05:13 Micro: Microbiology 10/11/20 23:42 Gram Stain - Final Shoulder - #1 Wound Culture - Preliminary Staphylococcus aureus A&P Assessment and plan (1) Hypotension: This could be multifactorial. Systolic dysfunction and the medications are major players. I may hold off on the lisinopril now and restart the Lasix and spironolactone. We will repeat the BMP in the morning. Status: Acute Qualifiers: Hypotension type: hypotension due to drug Qualified Code(s): I95.2 - Hypotension due to drugs (2) Acute on chronic heart failure with reduced ejection fraction and diastolic dysfunction: As mentioned above Status: Acute (3) CKD (chronic kidney disease): Kidney function seems to be stable. Commend continue on the current measures. Status: Acute Qualifiers: Chronic kidney disease stage: stage 3 (moderate) Chronic kidney disease stage 3 subtype: stage 3a (GFR 45-59) Qualified Code(s): N18.31 - Chronic kidney disease, stage 3a (4) Moderate mitral regurgitation: No specific symptoms. 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 Status: Acute (6) Status cardiac pacemaker: Pacemaker function seems appropriate. 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
[2020-10-14] VITALS (9 sets, daily range): BP systolic 92–116; BP diastolic 50–69; PULSE 55–68; RESP 16–19; TEMP 36.4–36.6; O2SAT 92–98
[2020-10-14] MEDS: heparin 5,000 unit/mL INJ 1 mL 5000 UNIT SUBCUT ×2 (05:47→17:40)
[2020-10-14 06:41] LABS: Anion Gap 19.4 (5-19); Blood Urea Nitrogen 42 mg/dL (8-23); Calcium 10.2 mg/dL (8.5-10.5); Carbon Dioxide 28 mmol/L (22-29); Chloride 86 mmol/L (98-107); Glomerular Filtration Rate 36.1 mL/min (90-130); Glucose 79 mg/dL (65-115); Osmolality Calculated 277 mOsm/kg (285-295); Potassium 4.4 mmol/L (3.5-5.1); Sodium 129 mmol/L (136-145)
[2020-10-14] MEDS: ferrous sulfate EC 325 mg Tablet PO ×2 (08:45→17:40)
[2020-10-14] MEDS: magnesium oxide 400 mg tablet PO (08:45)
[2020-10-14] MEDS: aspirin 81 mg EC Tablet PO (08:45)
[2020-10-14] MEDS: metOLazone 5 MG Tablet PO (08:45)
[2020-10-14] MEDS: potassium chloride ER 20 mEq Tablet PO (08:46)
[2020-10-14] MEDS: spironolactone 25 mg Tablet 50 MG PO (08:46)
--- NOTE | 2020-10-14 08:54 | P.PN_ITS ---
Subjective Subjective: Interval history: Patient is doing well. He denies any complaints of chest pain or palpitations. His shortness of breath is much improved. He has diuresed more than 20 L since admission. Creatinine had small bump and is 1.9 today. He looks euvolemic now. Vitals/I&O/Wt Last Vital Signs Temp 97.8 F 10/14/20 08:00 Pulse 59 L 10/14/20 08:00 Resp 16 10/14/20 08:00 BP 100/62 10/14/20 08:00 Pulse Ox 98 10/14/20 08:00 10/13/20 10/14/20 10/14/20 22:59 06:59 14:59 Intake Total 240 / 600 0 / 600 Output Total 1000 / 1700 1850 / 3550 Balance -760 / -1100 -1850 / -2950 Weight last 48 hrs Weight 229 lb 11.2 oz Weight 232 lb 12.8 oz Weight 233 lb 4.8 oz Physical Exam Narrative: EXAM NARRATIVE: ARRATIVE: GENERAL: The patient is alert and oriented times three. Not in any acute distress. HEENT: No significant pallor, icterus or lymphadenopathy.Oral cavity: There are no mucous membrane lesions. NECK: Trachea appears to be central. No masses noted. No JVD or thyromegaly appreciated. RESPIRATORY: Chest is symmetrical. No intercostals muscle retraction or any accessory muscle activation. There is no chest wall tenderness. Breath sounds are heard bilaterally. No rales or rhonchi heard. No evidence of any consolidation. BREASTS: Deferred. HEART: The heart sounds are normal. No S3 or S4. Soft systolic murmur in the left sternal border. No diastolic murmurs.. No pericardial rub ABDOMEN: Slightly distended. No evidence of any free fluid.. No tenderness. No organomegaly appreciated. Bowel sounds are normally heard. : Deferred. RECTAL: Deferred. LYMPHATIC: No lymphadenopathy noted in the neck or groin. EXTREMITIES: 1+ edema both lower extremities. No cyanosis. MUSCULOSKELETAL: No acute joint deformities or swelling SKIN: There are no significant rashes or ecchymosis NEUROPSYCHIATRIC: The patient is alert and oriented x3. Appears to be in a good mood. No tremors or rigidity noted. Urinary Catheter Management^: Alex: Cath Placed During This Visit: yes Reason for Continuing Indwelling Catheter: Accurate Measurement of Urinary Output in Critically Ill Patients Urinary Catheter Date of Insertion: 10/10/20 Urinary Catheter Time of Insertion: 23:00 Data : 10/10/20 04:20 10/14/20 05:21 Micro: Microbiology 10/11/20 23:42 Gram Stain - Final Shoulder - #1 Wound Culture - Preliminary Staphylococcus aureus A&P Assessment and plan (1) Acute on chronic heart failure with reduced ejection fraction and diastolic dysfunction: Status: Acute (2) Moderate mitral regurgitation: Status: Acute (3) Mitral regurgitation: Status: Acute Qualifiers: Cardiac valve disease etiology: nonrheumatic Qualified Code(s): I34.0 - Nonrheumatic mitral (valve) insufficiency (4) Status cardiac pacemaker: Status: Acute (5) Congenital heart defect: Status: Acute (6) CKD (chronic kidney disease): Status: Acute Qualifiers: Chronic kidney disease stage: stage 3 (moderate) Chronic kidney disease stage 3 subtype: stage 3a (GFR 45-59) Qualified Code(s): N18.31 - Chronic kidney disease, stage 3a (7) Acute on chronic congestive heart failure: Status: Acute Patient appears close to being euvolemic. He has diuresed more than 20 L since admission. We will switch IV Lasix to p.o. Bumex 2 mg 3 times daily. Continue metolazone. We will obtain LifeVest for him as he has low EF and had recent syncopal episode. 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 We will also refer to heart failure/adult congenital heart disease clinic. Strict I&O's. Low-sodium diet. Please call with questions Attestations Medical Necessity Statement*: Care expected to cross 2 midnights. Patient will be switched to p.o. diuretics today with possible discharge tomorrow Coding Level of Care Code Acute Radiographer Cardiac Catheterization for [facility] Diagnoses Acute on chronic heart failure with reduced ejection fraction and diastolic dysfunction I50.43 Moderate mitral regurgitation I34.0 Mitral regurgitation I34.0 Cardiac valve disease etiology: nonrheumatic Status cardiac pacemaker Z95.0 Congenital heart defect Q24.9 CKD (chronic kidney disease) N18.31 Chronic kidney disease stage: stage 3 (moderate) Chronic kidney disease stage 3 subtype: stage 3a (GFR 45-59) Acute on chronic congestive heart failure I50.9
[2020-10-14] MEDS: bumetanide 1 mg Tablet 2 MG PO ×2 (08:59→15:28)
--- NOTE | 2020-10-14 12:14 | PC.NURSE ---
Spoke with family, they stated that when patient is discharged they will not be able to pick him 4:00pm
[2020-10-14] MEDS: morphine 4 mg/mL SDV 1 mL 2 MG IVP (12:40)
[2020-10-14] MEDS: morphine IR 15 mg Tablet PO (17:39)
[2020-10-15 01:13] VITALS: BP 96/54; PULSE 68; RESP 17; TEMP 528.3; TEMP 983; O2SAT 96
[2020-10-15 04:36] VITALS: BP 116/64; PULSE 78; RESP 17; TEMP 36.6; O2SAT 90
[2020-10-15] MEDS: heparin 5,000 unit/mL INJ 1 mL 5000 UNIT SUBCUT (06:05)
[2020-10-15 07:10] VITALS: BP 90/46; PULSE 65; RESP 17; TEMP 36.4; O2SAT 100
--- NOTE | 2020-10-15 08:46 | PC.NURSE ---
Dr. Mayer notfied due to pt blood pressure is 90/46 and 2 mg Bumex is ordered to be given at 0900 with 50mg of spironolactone. Physician ordered for pt to receive 1mg Bumex and hold spironolactone.
[2020-10-15] MEDS: ferrous sulfate EC 325 mg Tablet PO (09:21)
[2020-10-15] MEDS: bumetanide 1 mg Tablet PO (09:21)
[2020-10-15] MEDS: potassium chloride ER 20 mEq Tablet PO (09:21)
[2020-10-15] MEDS: aspirin 81 mg EC Tablet PO (09:21)
[2020-10-15] MEDS: magnesium oxide 400 mg tablet PO (09:22)
[2020-10-15] MEDS: nicotine 21 mg Patch 1 PATCH TRANSDERMA (09:23)
[2020-10-15 10:03] LABS: Anion Gap 19.1 (5-19); Blood Urea Nitrogen 46 mg/dL (8-23); Calcium 10.3 mg/dL (8.5-10.5); Carbon Dioxide 33 mmol/L (22-29); Chloride 82 mmol/L (98-107); Glomerular Filtration Rate 30.5 mL/min (90-130); Glucose 125 mg/dL (65-115); Osmolality Calculated 283 mOsm/kg (285-295); Potassium 4.1 mmol/L (3.5-5.1); Sodium 130 mmol/L (136-145)
[2020-10-15 10:23] VITALS: BP 95/50; PULSE 67; RESP 18; TEMP 36.3; O2SAT 99
--- NOTE | 2020-10-15 10:42 | PM.DCS ---
Discharge Providers Date of Admission: 10/09/20 09:14 Date of Discharge: October 15, 2020 Attending Provider at Admission: Yonatan Mayer M.D Attending Provider at Discharge: Yonatan Mayer M.D Primary Care Provider: India Malagon DO Diagnoses at Discharge Discharge Diagnosis (1) Acute on chronic heart failure with reduced ejection fraction and diastolic dysfunction: Status: Resolved (2) Moderate mitral regurgitation: Status: Acute (3) Mitral regurgitation: Status: Acute Qualifiers: Cardiac valve disease etiology: nonrheumatic Qualified Code(s): I34.0 - Nonrheumatic mitral (valve) insufficiency (4) Status cardiac pacemaker: Status: Acute (5) Congenital heart defect: Status: Acute (6) CKD (chronic kidney disease): Status: Acute Qualifiers: Chronic kidney disease stage: stage 3 (moderate) Chronic kidney disease stage 3 subtype: stage 3a (GFR 45-59) Qualified Code(s): N18.31 - Chronic kidney disease, stage 3a (7) Acute on chronic congestive heart failure: Status: Resolved Reason for Visit Reason for Visit: Shortness of breath/weight gain/CHF EXACERBATION Hospital Course Hospital Course 64 Yr old man with PMH of congenitally corrected Transposition of great arteries,hypertension, systolic congestive heart failure, with pacemaker in place was seen in the office with 20+pounds of weight gain, shortness of breath and acute on chronic congestive heart failure. Patient was admitted for IV diuresis. He was put on IV Lasix 80mg TID along with Metolazone. More than 25 Liters were diuresed. Patient's Creatinine started to increase and he was euvolemic. His IV lasix was switched to Bumex 2mg BID and Metolazone was continued. Patient's EF is 20-25% and he had a recent syncopal episode at home. We have put him on LifeVest and have referred him to cardiology at 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 We will check outpatient BMP in 3 days to assess renal function. CHF precuations discussed in detail including fluid restriction, salt restriction, daily weights and to take extra dose of Bumex in case notices, more than 2 pounds of weight gain in a single day. Patient discharged in a stable condition. Physical Exam Urinary Catheter Management^: Alex: Cath Placed During This Visit: yes Reason for Continuing Indwelling Catheter: Acute Urinary Retention or Obstruction Urinary Catheter Date of Insertion: 10/10/20 Urinary Catheter Time of Insertion: 23:00 Discharge Data Data Completed and Pending: Completed Studies During Hospitalization Category Date Time Status XR chest 1V francis ble 15077 Stat Exams 10/09/20 09:06 [place] [address] Urgent Ultrasound 10/09/20 09:10 Completed Labs from last 24 hours 10/15/20 09:16 Sodium 130 L Potassium 4.1 Chloride 82 L Carbon Dioxide 33 H Anion Gap 19.1 H BUN 46 H Creatinine 2.2 H GFR Calculation 30.5 L Glucose 125 H Calculated Osmolal ity 283 L Calcium 10.3 Vitals: Last Vital Signs Temp 97.4 F L 10/15/20 10:23 Pulse 67 10/15/20 10:23 Resp 18 10/15/20 10:23 BP 95/50 10/15/20 10:23 Pulse Ox 99 10/15/20 10:23 Discharge Plan Discharge Patient Disposition: Home Condition: Stable Prescriptions: New tramadol 50 mg Tablet 50 mg PO Q6H PRN (Reason: Moderate Pain) 3 Days Qty: 12 RF: 0 bumetanide 1 mg Tablet 2 mg PO BID Qty: 120 RF: 2 Continued potassium chloride [Klor-Con M20] 20 mEq tablet,ER particles/crystals 20 meq PO DAILY 90 Days Qty: 90 RF: 3 aspirin [Aspir-81] 81 mg tablet,delayed release (DR/EC) 81 mg PO DAILY RF: 0 magnesium oxide 400 mg magnesium capsule 400 mg PO DAILY RF: 0 metolazone 5 mg tablet 5 mg PO DAILY Qty: 90 RF: 3 omeprazole 20 mg capsule,delayed release(DR/EC) 20 mg PO BID RF: 0 spironolactone 50 mg tablet 50 mg PO DAILY 90 Days Qty: 90 RF: 3 ferrous sulfate [Iron (ferrous sulfate)] 325 mg (65 mg iron) tablet 325 mg PO BID Qty: 180 RF: 0 Held lisinopril 5 mg tablet 5 mg PO DAILY Qty: 90 RF: 0 Hold Instructions: Resume on 10/22/20. Discontinued furosemide 80 mg tablet 80 mg PO TID RF: 0 Discharge Orders: Discharge Order (Routine); Ordered 10/15/20 Ordered By: Yonatan Mayer Other Ambulatory Orders: Basic Metabolic Panel (Routine) Timeframe: [id number] Facility: [facility] - Location: Lab - Main Lab Ordered By: Yonatan Mayer Referrals: Yonatan Mayer M.D [Physician] - 11/15/20 8:30 am India Malagon DO [Primary Care Provider] - 10/29/20 11:30 am Discharge Diet: Cardiac and Low Salt Discharge Activity: Increase activity as tolerated Patient Instructions: Congestive Heart Failure, Heart Healthy Diet, Hypotension (GEN), CHF Stoplight Activity Restrictions/Additional Instructions: Please do not drink more than 1.5 Liter of fluid, limit salt intake. Weigh yourself daily and if weight goes up more than 2 pounds in a single day, take extra dose of Bumex. 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
[2020-10-15 13:17] VITALS: O2SAT 94; O2SAT 98
--- NOTE | 2020-10-15 14:46 | PC.NURSE ---
rojas removed. 8cc removed from baloon, 1000 cc clear yellow urine drained from catheter bag. pt tolerated rojas removal well.
[2020-10-15] MEDS: bumetanide 1 mg Tablet 2 MG PO (17:01)
--- NOTE | 2020-10-15 18:29 | PC.NURSE ---
Gone over discharge orders with pt and niece answered any and all questions regarding discharge instructions, medications, and dr appointments. pt was instructed to call with any further questions.
[2020-10-15 18:32] VITALS: BP 95/50; PULSE 67; RESP 18; TEMP 36.3; O2SAT 99
== END 2020-10-15 16:30 | disposition home or self-care (01) | DRG 293 ==
LOC: ER 09:02 → MEDSURG 13:19
PROVIDERS: Admitting Provider Internal Medicine; Emergency Provider Family Medicine; PCP Family Medicine; Visit Provider Internal Medicine
DX: I50.33 Acute on chronic diastolic (congestive) heart failure (principal); N18.31 Chronic kidney disease, stage 3a; I34.0 Nonrheumatic mitral (valve) insufficiency; Z95.0 Presence of cardiac pacemaker; K21.9 Gastro-esophageal reflux disease without esophagitis; F17.210 Nicotine dependence, cigarettes, uncomplicated; I95.9 Hypotension, unspecified; Z79.82 Long term (current) use of aspirin
CPT/HCPCS: 12345; 36415; 51702; 71045; 80048; 80053; 83880; 84484; 85025; 87070; 87075; 87077; 87186; 87205; 93005; 93970; 96372; 96375; 99282; J1200; J1644; J1940; J2270

== ENCOUNTER → 2020-10-28 11:38 | Outpatient (BNVA) | payer MEDICAID, SELFPAY | PROVIDERS: PCP Family Medicine; Visit Provider Internal Medicine | DX: I50.9 Heart failure, unspecified (principal) | CPT/HCPCS: 80053 ==

== ENCOUNTER 2020-11-12 08:22 | Emergency (ER) | payer MEDICAID, SELFPAY ==
[2020-11-12 08:23] VITALS: BP 107/60; PULSE 73; RESP 18; TEMP 36.4; O2SAT 97; BMI 29.0
--- NOTE | 2020-11-12 08:31 | ED_ITS ---
HPI - Fall General: Chief Complaint: Fall Stated Complaint: FALL Time Seen by Provider: 11/12/20 08:26 History of Present Illness: HPI Narrative: 64-year-old male brought in by EMS after a fall. He was walking out of the house and fell patient hit his head on the pavement when he fell. He thinks he may have stumbled but he is on unsure. He is on aspirin daily. He denies any chest pain lightheadedness or dizziness. Denies any increasing shortness of breath he has a history of severe end-stage congestive heart failure and is on a dobutamine pump continuously which he is caring with him at this time. Associated symptoms-after fall: Denies abdominal pain or chest pain Review of Systems Const: Denies: fever(s), chills, body aches, change in appetite, fatigue or malaise ENMT: Denies: throat pain, ear or mastoid pain, nasal discharge or nasal congestion Card: Denies: chest pain, edema, dyspnea on exertion or orthopnea Resp: Denies: dyspnea, productive cough or non-productive cough GI: Denies: abdominal pain, nausea, vomiting, hematemesis, coffee ground emesis, diarrhea, constipation, bloating, hematochezia or melena : Denies: flank pain, dysuria, urinary frequency or urinary urgency Skin/Breast: Denies: rash or pruritus PFS ED PFSH: Medical History (Updated 11/12/20 @ 11:06 by Rustam Lackey DO) 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 GERD (gastroesophageal reflux disease) H/O fracture of arm Heart block, congenital Mitral regurgitation Tricuspid valve disease Surgical History Status cardiac pacemaker Family History Mother Diabetes Social History Smoking and tobacco status: current every day smoker cigarettes Packs smoked per day: 0.5 Alcohol intake: former Marital status: service: No Current occupational status: disabled Physical Exam Const: COMMON NORMALS: no acute distress GENERAL APPEARANCE: cooperative and comfortable ORIENTATION/CONSCIOUSNESS: Yes awake, Yes oriented to person, Yes oriented to place and Yes oriented to time HENMT: COMMON NORMALS: normocephalic, atraumatic and hearing grossly normal bilaterally HEAD & SCALP: normocephalic and atraumatic OTHER: Abrasion on the bridge of the nose there is no deformity the nose is mildly tender later in the visit he had a little epistaxis which was treated with oxymetazoline 2 sprays on each side which resolved immediately. Resp: COMMON NORMALS: normal respiratory effort, No retractions and No use of accessory muscles AUSCULTATION: crackles Laterality: bilateral (At the bases) Cardio: COMMON NORMALS: regular rate and regular rhythm RATE: regular rate RHYTHM: regular rhythm GI: COMMON NORMALS: Soft to palpation and No hepatosplenomegaly present AUSCULTATION: Yes normoactive bowel sounds PALPATION: Yes Soft to palpation, No Tenderness to palpation present (GI), No Guarding due to palpation present (GI) and Yes No hepatosplenomegaly present Extremity: COMMON NORMALS: normal to inspection, capillary refill normal and no calf tenderness GENERAL: Yes edema Neuro: SENSORIUM/ORIENTATION: Yes oriented to person, Yes oriented to place and Yes oriented to time Skin: COMMON NORMALS: no rashes or lesions noted GENERAL SKIN EXAM: no rashes or lesions noted Course Vital Signs: Vital signs: Vital Signs Temperature 97.5 F L 11/12/20 08:23 Pulse Rate 63 11/12/20 11:40 Respiratory Rate 20 H 11/12/20 11:40 Blood Pressure 106/66 11/12/20 11:40 Pulse Oximetry 98 11/12/20 11:40 MDM - Fall MDM Narrative: Medical decision making narrative: Reviewed imaging will discharge home. Reviewed labs he does have quite a few lab abnormalities however these are for the most part look to be his baseline due to his chronic met underlying medical issues. We will go ahead and discharge him home at this time. His sodium is slightly low but it was similarly low 1 month ago. Lab Data: Labs: Lab Results 11/12/20 11/12/20 11/12/20 Range/Units 09:34 09:34 09:34 WBC 7.2 (4.0-10.0) 10^3/ uL RBC 3.92 L (4.1-5.3) 10^6/u L Hgb 10.5 L (11.7-16.6) g/dL Hct 33.2 L (42.0-52.0) % MCV 84.7 (80-94) fL MCH 26.8 L (28.0-34.0) pg MCHC 31.6 (30.0-36.0) g/dL RDW 25.3 H (12.1-15.1) % Plt Count 183 (130-400) 10^3/c mm MPV 10.2 (7.4-10.4) fL Neut % (Auto) 82.9 % Lymph % (Auto) 9.0 % Whitman % (Auto) 4.3 % Eos % (Auto) 2.4 % Baso % (Auto) 0.6 % Neut # (Auto) 5.96 (1.8-7.7) 10^3/u L Lymph # (Auto) 0.7 L (0.8-4.8) 10^3/u L Whitman # (Auto) 0.3 (0.2-0.9) 10^3/u L Eos # (Auto) 0.2 (0.0-0.8) 10^3/u L Baso # (Auto) 0.0 (0.0-0.1) 10^3/u L Nucleated RBC % (a uto) 0 % Nucleated RBCs # 0.0 /100WBC Sodium 124 L (136-145) mmol/L Potassium 4.4 (3.5-5.1) mmol/L Chloride 86 L (98-107) mmol/L Carbon Dioxide 20 L (22-29) mmol/L Anion Gap 22.4 H (5-19) BUN 41 H (8-23) mg/dL Creatinine 1.9 H (0.7-1.2) mg/dL GFR Calculation 36.1 L (90-130) mL/min Glucose 107 (65-115) mg/dL Calculated Osmolal ity 269 L (285-295) mOsm/k g Calcium 10.3 (8.5-10.5) mg/dL Magnesium 2.6 H (1.7-2.3) mg/dL Total Bilirubin 4.6 H (0.15-1.2) mg/dL AST 27 (0-40) U/L ALT < 5 (0-41) U/L Alkaline Phosphata se 175 H (40-130) IU/L Total Protein 8.1 (6.6-8.7) g/dL Albumin 4.9 (3.5-5.2) g/dL Globulin 3.2 (1.3-4.6) g/dL Urine Color (Yellow) Urine Appearance (CLEAR) Urine pH (5-7) Ur Specific Gravit y (1.005-1.030) Urine Protein (Negative) Urine Glucose (UA) (Normal) Urine Ketones (Negative) Urine Blood (Negative) Urine Nitrate (Negative) Urine Bilirubin (Negative) Urine Urobilinogen (Negative) mg/dL Ur Leukocyte Bertha ase (Negative) Urine RBC (0-2) /hpf Urine WBC (0-5) /hpf Ur Squamous Epith Cells (0-5) /hpf Amorphous Sediment Urine Bacteria (NONE) /hpf Urine Mucus /hpf 12/15/20 Range/Units 10:20 WBC (4.0-10.0) 10^3/ uL RBC (4.1-5.3) 10^6/u L Hgb (11.7-16.6) g/dL Hct (42.0-52.0) % MCV (80-94) fL MCH (28.0-34.0) pg MCHC (30.0-36.0) g/dL RDW (12.1-15.1) % Plt Count (130-400) 10^3/c mm MPV (7.4-10.4) fL Neut % (Auto) % Lymph % (Auto) % Whitman % (Auto) % Eos % (Auto) % Baso % (Auto) % Neut # (Auto) (1.8-7.7) 10^3/u L Lymph # (Auto) (0.8-4.8) 10^3/u L Whitman # (Auto) (0.2-0.9) 10^3/u L Eos # (Auto) (0.0-0.8) 10^3/u L Baso # (Auto) (0.0-0.1) 10^3/u L Nucleated RBC % (a uto) % Nucleated RBCs # /100WBC Sodium (136-145) mmol/L Potassium (3.5-5.1) mmol/L Chloride (98-107) mmol/L Carbon Dioxide (22-29) mmol/L Anion Gap (5-19) BUN (8-23) mg/dL Creatinine (0.7-1.2) mg/dL GFR Calculation (90-130) mL/min Glucose (65-115) mg/dL Calculated Osmolal ity (285-295) mOsm/k g Calcium (8.5-10.5) mg/dL Magnesium (1.7-2.3) mg/dL Total Bilirubin (0.15-1.2) mg/dL AST (0-40) U/L ALT (0-41) U/L Alkaline Phosphata se (40-130) IU/L Total Protein (6.6-8.7) g/dL Albumin (3.5-5.2) g/dL Globulin (1.3-4.6) g/dL Urine Color Yellow (Yellow) Urine Appearance Clear (CLEAR) Urine pH 5.0 (5-7) Ur Specific Gravit y 1.010 (1.005-1.030) Urine Protein Trace (Negative) Urine Glucose (UA) Norm (Normal) Urine Ketones Negative (Negative) Urine Blood 2+ H (Negative) Urine Nitrate Negative (Negative) Urine Bilirubin Neg (Negative) Urine Urobilinogen Norm (Negative) mg/dL Ur Leukocyte Bertha ase Negative (Negative) Urine RBC 0-4 H (0-2) /hpf Urine WBC 0-4 H (0-5) /hpf Ur Squamous Epith Cells 5-10 H (0-5) /hpf Amorphous Sediment Not Reportable Urine Bacteria Trace (NONE) /hpf Urine Mucus Trace /hpf Discharge Plan Discharge Patient Disposition: Home Clinical Impression: Fall, Congestive heart failure, Acute anterior epistaxis Condition: Stable Prescriptions: No Action potassium chloride [Klor-Con M20] 20 mEq tablet,ER particles/crystals 20 meq PO DAILY 90 Days Qty: 90 RF: 3 metolazone 5 mg tablet 5 mg PO DAILY Qty: 90 RF: 3 omeprazole 20 mg capsule,delayed release(DR/EC) 20 mg PO BID RF: 0 spironolactone 50 mg tablet 50 mg PO DAILY 90 Days Qty: 90 RF: 3 ferrous sulfate [Iron (ferrous sulfate)] 325 mg (65 mg iron) tablet 325 mg PO BID Qty: 180 RF: 0 lisinopril 5 mg tablet 5 mg PO DAILY Qty: 90 RF: 0 Hold Instructions: Resume on 10/22/20. aspirin 81 mg tablet,delayed release (DR/EC) 81 mg PO DAILY Qty: 90 RF: 3 magnesium oxide 400 mg magnesium capsule 400 mg PO DAILY Qty: 90 RF: 3 bumetanide 1 mg Tablet 2 mg PO BID Qty: 120 RF: 2 Discharge Orders: Discharge ED (Routine); Ordered 11/12/20 Ordered By: Rustam Lackey Referrals: India Malagon DO [Primary Care Provider] - Coding Level of Care Code ED Testing Shaking Shipping for Chg Fwd Exam Comprehensive
[2020-11-12] MEDS: tetanus-diphtheria tox (adult) 0.5 mL SDV IM (08:50)
--- NOTE | 2020-11-12 08:53 | XR_ITS ---
WS: [id number] XR knee RT 3V* [id number] REASON FOR EXAM: fall FINDINGS: Mild narrowing of the medial knee joint space. Lateral knee joint space and patellofemoral joint spac e are intact. No fracture or other focal bony abnormality. No soft tissue abnormality. XR/XR knee RT 3V* [id number] IMPRESSION: No acute abnormality.
--- NOTE | 2020-11-12 08:53 | XR_ITS ---
WS: [id number] XR hand LT min 3V* [id number] REASON FOR EXAM: fall FINDINGS: Joint spaces of the left hand are intact. No fracture or other focal bone lesion. No soft tissue abnormality. XR/XR hand LT min 3V* [id number] IMPRESSION: No acute abnormality.
--- NOTE | 2020-11-12 08:54 | CT_ITS ---
WS: [id number] CT CERVICAL TRAUMA TECHNIQUE: Noncontrast CT of the cervical spine with coronal and sagittal reformatted images. CLINICAL INFORMATION: fall COMPARISON: None. DLP: 807.[address] scans at [facility] use at least one of these dose optimization techniques: automat ed exposure control; mA and/or kV adjustment per patient size (includes targeted exams where dose is matched to clinical indication); or iterative reconstruction. FINDINGS: Reversal of the normal cervical lordosis. Moderate spondylitic changes cervical spine with anterior h ypertrophic changes at C4-C6. Normal craniocervical junction. Normal C1-C2 articulation. Dens is norm al in appearance. Normal occipital condyles. No high-grade spinal canal narrowing. Normal C1 ring. No evidence of acute fracture or dislocation. Disc osteophytic ridging at C5 with moderate central drake l stenosis. Normal prevertebral soft tissues. CT/CT cervical spin wo con* [id number] IMPRESSION: No evidence of acute fracture or dislocation. Reversal of the normal cervical l ordosis.
--- NOTE | 2020-11-12 08:54 | CT_ITS ---
WS: [id number] CT HEAD TECHNIQUE: Noncontrast CT of the head obtained from the skullbase to the vertex. CLINICAL INFORMATION: fall - on eliquis COMPARISON: March 22, 2014 DLP: 774.[address] scans at [facility] use at least one of these dose optimization techniques: automat ed exposure control; mA and/or kV adjustment per patient size (includes targeted exams where dose is matched to clinical indication); or iterative reconstruction. FINDINGS: No evidence of intracranial hemorrhage or mass effect. Ventricular system and basal cisterns are ching nt. Mild small vessel changes with moderate parenchymal volume loss. No extra-axial fluid collections . No evidence of mass or mass effect. Normal devi-white differentiation. Chronic left mastoiditis. Paranasal sinuses are well aerated. Right mastoid air cells are well aerate d. CT/CT head wo con* [id number] IMPRESSION: 1. No evidence of intracranial hemorrhage or mass effect. 2. Mild small vessel changes. Moderate parenchymal volume loss. 3. Chronic left mastoiditis unchanged. 4. No acute intracranial findings. Notified Rustam Lackey DO at 11/12/2020 10:07 AM.
[2020-11-12 09:49] LABS: Basophils % 0.6 %; Eosinophils # 0.2 10^3/uL (0.0-0.8); Eosinophils % 2.4 %; Hematocrit 33.2 % (42.0-52.0); Hemoglobin 10.5 g/dL (11.7-16.6); Lymphocytes # 0.7 10^3/uL (0.8-4.8); Mean Corpuscular HGB Conc 31.6 g/dL (30.0-36.0); Mean Corpuscular Hemoglobin 26.8 pg (28.0-34.0); Mean Corpuscular Volume 84.7 fL (80-94); Mean Platelet Volume 10.2 fL (7.4-10.4); Monocytes # 0.3 10^3/uL (0.2-0.9); Monocytes % 4.3 %; Neutrophils # 5.96 10^3/uL (1.8-7.7); Neutrophils % 82.9 %; Nucleated Red Blood Cells % 0 %; Platelet Count 183 10^3/cmm (130-400); Red Blood Count 3.92 10^6/uL (4.1-5.3); Red Cell Distribution Width 25.3 % (12.1-15.1); White Blood Count 7.2 10^3/uL (4.0-10.0)
[2020-11-12 10:03] LABS: Alanine Aminotransferase < 5 U/L (0-41); Albumin Level 4.9 g/dL (3.5-5.2); Alkaline Phosphatase 175 IU/L (40-130); Anion Gap 22.4 (5-19); Aspartate Amino Transferase 27 U/L (0-40); Blood Urea Nitrogen 41 mg/dL (8-23); Calcium 10.3 mg/dL (8.5-10.5); Carbon Dioxide 20 mmol/L (22-29); Chloride 86 mmol/L (98-107); Globulin 3.2 g/dL (1.3-4.6); Glomerular Filtration Rate 36.1 mL/min (90-130); Glucose 107 mg/dL (65-115); Osmolality Calculated 269 mOsm/kg (285-295); Potassium 4.4 mmol/L (3.5-5.1); Sodium 124 mmol/L (136-145); Total Bilirubin 4.6 mg/dL (0.15-1.2); Total Protein 8.1 g/dL (6.6-8.7)
[2020-11-12 10:06] LABS: Magnesium 2.6 mg/dL (1.7-2.3)
[2020-11-12 10:55] LABS: Add Urine Culture? No; Add Urine Microscopic? YES; Bacteria Urine TRACE /hpf; Bilirubin Urine Neg (Negative); Blood Urine 2+ (Negative); Glucose Urine UA Norm (Normal); Ketones Urine Negative (Negative); Leukocyte Esterase Urine Negative (Negative); Mucus Urine TRACE /hpf; Nitrate Urine Negative (Negative); Protein Urine Trace (Negative); RBC Urine 0-4 /hpf (0-2); Urine Appearance Clear (CLEAR); Urine Color Yellow (Yellow); Urobilinogen Urine Norm (Negative); WBC Urine 0-4 /hpf (0-5)
--- NOTE | 2020-11-12 11:15 | ECG_ITS ---
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 Measurements Intervals [place] Rate: 60 P: IN: QRS: -89 QRSD: 238 T: 91 QT: 549 QTc: 549 Interpretive Statements ELECTRONIC VENTRICULAR PACEMAKER ABNORMAL RHYTHM ECG Compared to ECG 10/09/2020 10:55:27 No significant changes Electronically Signed On 11-12-2020 20:01:50 GRANT MANAGER by Nicki Holloway M.D. [id number]
[2020-11-12] MEDS: oxymetazoline 0.05% Nasal Spray 15 mL 2 SPRAY NOSTRIL-B (11:22)
[2020-11-12 11:40] VITALS: BP 106/66; PULSE 63; RESP 20; O2SAT 98
== END 2020-11-12 12:00 | disposition home or self-care (01) ==
PROVIDERS: Emergency Provider Family Medicine; PCP Family Medicine
DX: I50.9 Heart failure, unspecified (principal); R04.0 Epistaxis; Z79.82 Long term (current) use of aspirin; F17.210 Nicotine dependence, cigarettes, uncomplicated; Z95.0 Presence of cardiac pacemaker; Z23 Encounter for immunization
CPT/HCPCS: 12345; 70450; 72125; 73130; 73562; 80053; 81001; 83735; 85025; 90471; 90714; 93005; 99281; 99283

== ENCOUNTER → 2020-11-19 11:02 | Outpatient (BNVA) | payer MEDICAID, SELFPAY | PROVIDERS: PCP Nurse Practitioner; Visit Provider Nurse Practitioner | DX: F41.8 Other specified anxiety disorders (principal); R26.81 Unsteadiness on feet; L29.9 Pruritus, unspecified; I50.32 Chronic diastolic (congestive) heart failure | CPT/HCPCS: 80053; 83735; 85025 ==

== ENCOUNTER 2020-11-26 15:21 | Emergency (ER) | payer MEDICAID, SELFPAY ==
[2020-11-26] VITALS (9 sets, daily range): BP systolic 96–113; BP diastolic 57–69; PULSE 60–77; RESP 18–22; TEMP 36.4; O2SAT 92–96; BMI 44.1
--- NOTE | 2020-11-26 15:48 | ECG_ITS ---
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 Measurements Intervals [place] Rate: 63 P: [place]: QRS: 8 QRSD: 225 T: 51 QT: 526 QTc: 542 Interpretive Statements ELECTRONIC VENTRICULAR PACEMAKER MARKED ST ELEVATION, CONSIDER INFERIOR INJURY [MARKED ST ELEVATION W/O NORMALLY INFLECTED T WAVE IN II/aVF] ACUTE ND Compared to ECG 11/12/2020 08:46:34 ST (T wave) deviation now present Myocardial infarct finding now present Electronically Signed On 11-26-2020 23:51:50 FREE LANCE MODEL by Eladia Espinal M.D. [id number]
--- NOTE | 2020-11-26 15:48 | XRR_ITS ---
PROCEDURE INFORMATION: Exam: XR Chest, 1 View Exam date and time: 11/26/2020 4:32 PM Age: 64 years old Clinical indication: Cough and dyspnea and shortness of breath; Prior surgery; Surgery type: Pacemaker; Additional info: Dyspnea/cough TECHNIQUE: Imaging protocol: XR of the chest Views: 1 view. COMPARISON: CR XR chest 1V portable [id number] 10/09/2020 9:21 AM FINDINGS: Tubes, catheters and devices: A permanent sequential pacemaker appears intact. A right subclavian catheter is present with tip projecting in the SVC. Lungs: There is pulmonary vascular prominence with hazy bilateral perihilar interstitial infiltrate. These findings are probably due to heart failure with perihilar interstitial pneumonia. A superimposed interstitial pneumonitis cannot be excluded. Pleural space: Unremarkable. No pleural effusion. No pneumothorax. Heart/Mediastinum: The cardiac silhouette is enlarged but unchanged. Bones/joints: Unremarkable. XR/XR chest 1V portable [id number] IMPRESSION: 1. There are findings consistent with heart failure with perihilar interstitial pulmonary edema. 2. A superimposed interstitial pneumonitis cannot be excluded.
--- NOTE | 2020-11-26 15:49 | ED_ITS ---
Documented by User: Rustam Lackey DO 11/27/20 06:37 HPI - SOB/Dyspnea General: Chief Complaint: Shortness of Breath/Dyspnea Stated Complaint: SOB, WEAKNESS Time Seen by Provider: 11/26/20 15:44 History of Present Illness: HPI Narrative: 64 yo male c/o of SOB and orthopnea. Patient has a history of severe congestive heart failure. Comes in today complaining of increased fluid buildup. He is also on a milrinone pump as an outpatient. He recently had a pacemaker placed. He denies any chest pain. He has some moderate worsening of his chronic orthopnea. MD elicited complaint: shortness of breath Pertinent past history: congestive heart failure Onset (ago): day(s) Context: occurred during exertion Timing: constant Severity: moderate Exacerbating factors: lying flat and exertion Relieving factors: oxygen, rest and upright position Known history of: congestive heart failure Associated symptoms: Reports lightheadedness and orthopnea; Deny abdominal pain, chest congestion, chest pain, cough, diaphoresis, dizziness, extremity pain, fever(s), hemoptysis, myalgias, nausea, palpitations, paresthesias, polydipsia, polyuria, rash, sense of impending doom, syncope or vomiting Treatment prior to arrival: none Review of Systems Const: Denies: fever(s) or diaphoresis ENMT: Denies: throat pain, ear or mastoid pain, nasal discharge or nasal congestion Card: Reports: lightheadedness and orthopnea; Denies: chest pain, palpitations or syncope Resp: Reports: dyspnea; Denies: hemoptysis or chest congestion GI: Denies: abdominal pain or vomiting : Denies: flank pain, dysuria, urinary frequency or urinary urgency Musc: Denies: extremity pain Skin/Breast: Denies: rash or pruritus Neuro: Denies: dizziness Endo: Denies: polyuria or polydipsia PFS ED PFSH: Medical History (Updated 11/27/20 @ 06:37 by Rustam Lackey DO) 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 GERD (gastroesophageal reflux disease) H/O fracture of arm Heart block, congenital Mitral regurgitation Tricuspid valve disease Surgical History Status cardiac pacemaker Family History Mother Diabetes Social History Smoking and tobacco status: current every day smoker cigarettes Packs smoked per day: 0.5 Second hand smoke exposure: No Smoking risk assessment/counseling performed?: Yes Alcohol intake: former Desire information about alcohol rehabilitation?: No Counseling given: No Desire information about substance/drug rehabilitation?: No Counseling given: No Adopted: No Caregiver/support person: Yes (family) Lives independently: Yes Household members: none Housing: House Marital status: Number of children: 2 service: No Current occupational status: disabled History of recent travel: No Current gender identity: Male Physical Exam Const: COMMON NORMALS: no acute distress GENERAL APPEARANCE: cooperative and comfortable ORIENTATION/CONSCIOUSNESS: Yes awake, Yes oriented to person, Yes oriented to place and Yes oriented to time HENMT: COMMON NORMALS: normocephalic, atraumatic and hearing grossly normal bilaterally HEAD & SCALP: normocephalic and atraumatic Neck/C-Spine: COMMON NORMALS: no JVD Resp: AUSCULTATION: crackles, wheezes and diminished lung sounds Cardio: COMMON NORMALS: no JVD, regular rate, regular rhythm and No murmurs present (Cardio) RATE: regular rate RHYTHM: regular rhythm GI: COMMON NORMALS: Soft to palpation and No hepatosplenomegaly present AUSCULTATION: Yes normoactive bowel sounds PALPATION: Yes Soft to palpation, No Tenderness to palpation present (GI), No Guarding due to palpation present (GI) and Yes No hepatosplenomegaly present Neuro: SENSORIUM/ORIENTATION: Yes oriented to person, Yes oriented to place and Yes oriented to time Course Vital Signs: Vital signs: Vital Signs Temperature 97.6 F 11/26/20 16:00 Pulse Rate 55 L 11/27/20 05:50 Respiratory Rate 18 11/27/20 05:50 Blood Pressure 99/63 11/27/20 05:50 Pulse Oximetry 92 11/27/20 05:50 MDM - SOB/Dyspnea MDM Narrative: Medical decision making narrative: Patient is anemic but at his baseline. He is hyponatremic with worsening congestive heart failure. His D- dimer is elevated he is a CTA of the chest pending. Care turned over to Dr. Ramirez at change of shift. Lab Data: Labs: Lab Results 11/26/20 11/26/20 11/26/20 Range/Units 16:10 16:29 16:29 WBC 9.5 (4.0-10.0) 10^3/ uL RBC 3.20 L (4.1-5.3) 10^6/u L Hgb 8.9 L (11.7-16.6) g/dL Hct 27.9 L (42.0-52.0) % MCV 87.2 (80-94) fL MCH 27.8 L (28.0-34.0) pg MCHC 31.9 (30.0-36.0) g/dL RDW 24.2 H (12.1-15.1) % Plt Count 129 L (130-400) 10^3/c mm MPV 11.0 H (7.4-10.4) fL Neut % (Auto) 95.5 % Lymph % (Auto) 1.6 % Boyle % (Auto) 2.3 % Eos % (Auto) 0.0 % Baso % (Auto) 0.1 % Neut # (Auto) 9.11 H (1.8-7.7) 10^3/u L Lymph # (Auto) 0.2 L (0.8-4.8) 10^3/u L Boyle # (Auto) 0.2 (0.2-0.9) 10^3/u L Eos # (Auto) 0.0 (0.0-0.8) 10^3/u L Baso # (Auto) 0.0 (0.0-0.1) 10^3/u L Nucleated RBC % (a uto) 0 % Nucleated RBCs # 0.0 /100WBC PT (12.1-14.9) SECO NDS INR (0.8-1.2) D-Dimer (0-0.59) ug/mIFE U Specimen Type Arterial Sample Site Radial, left ABG pH 7.44 (7.35-7.45) ABG pCO2 32.3 L (35-45) mmHg ABG pO2 69.8 L (80.0-100.0) mmH g ABG HCO3 22.1 (22-26) mmol/L ABG O2 Saturation 94.2 ABG Base Excess -1.5 (-2.0-2.0) mmol/ L Magdy Test Pos A-a O2 Gradient 5.2 (5-10) mmHg Hematocrit 30.3 L (42-52) % Hgb O2 Saturation 91.3 L (95-100) % Carboxyhemoglobin 2.4 (0.4-20.1) %THgb Methemoglobin 0.7 (0.4-1.5) % Total Hemoglobin 9.9 L (14-18) g/dL Sodium 116.0 L 118 L* (131-143) mmol/L Potassium 4.6 4.9 (3.5-5.0) mmol/L Glucose 106.0 115 (70-115) mg/dL Ionized Calcium 1.2 (1.1-1.4) mmol/L O2 Delivery Device Room air FiO2 21.0 % Recreation Clerk ID Monro Chloride 82 L (98-107) mmol/L Carbon Dioxide 22 (22-29) mmol/L Anion Gap 18.9 (5-19) BUN 37 H (8-23) mg/dL Creatinine 1.5 H (0.7-1.2) mg/dL GFR Calculation 47.4 L (90-130) mL/min Calculated Osmolal ity 256 L (285-295) mOsm/k g Lactate (0.5-2.2) mmol/L Calcium 9.3 (8.5-10.5) mg/dL Total Bilirubin 7.2 H* (0.15-1.2) mg/dL AST 31 (0-40) U/L ALT 17 (0-41) U/L Alkaline Phosphata se 256 H (40-130) IU/L Troponin T Baselin e (0-15) ng/L Troponin T 120 Min twenty-nine palms (0-15) ng/L Delta Troponin T (0-10) ABS# Troponin T Hi Sens 6Hr (0-15) ng/L Troponin T Hi Sens 6Hr Delta (0-12) ng/L NT-Pro-B Natriuret Pep 9201 H (0-125) pg/mL Total Protein 5.7 L (6.6-8.7) g/dL Albumin 3.6 (3.5-5.2) g/dL Globulin 2.1 (1.3-4.6) g/dL Urine Color (Yellow) Urine Appearance (CLEAR) Urine pH (5-7) Ur Specific Gravit y (1.005-1.030) Urine Protein (Negative) Urine Glucose (UA) (Normal) Urine Ketones (Negative) Urine Blood (Negative) Urine Nitrate (Negative) Urine Bilirubin (Negative) Urine Urobilinogen (Negative) mg/dL Ur Leukocyte Bertha ase (Negative) Urine RBC (0-2) /hpf Urine WBC (0-5) /hpf Ur Squamous Epith Cells (0-5) /hpf Amorphous Sediment Urine Bacteria (NONE) /hpf SARS-CoV-2 Ag (Rap id) (Negative) 11/26/20 11/26/20 11/26/20 Range/Units 16:29 16:29 16:29 WBC (4.0-10.0) 10^3/ uL RBC (4.1-5.3) 10^6/u L Hgb (11.7-16.6) g/dL Hct (42.0-52.0) % MCV (80-94) fL MCH (28.0-34.0) pg MCHC (30.0-36.0) g/dL RDW (12.1-15.1) % Plt Count (130-400) 10^3/c mm MPV (7.4-10.4) fL Neut % (Auto) % Lymph % (Auto) % Boyle % (Auto) % Eos % (Auto) % Baso % (Auto) % Neut # (Auto) (1.8-7.7) 10^3/u L Lymph # (Auto) (0.8-4.8) 10^3/u L Boyle # (Auto) (0.2-0.9) 10^3/u L Eos # (Auto) (0.0-0.8) 10^3/u L Baso # (Auto) (0.0-0.1) 10^3/u L Nucleated RBC % (a uto) % Nucleated RBCs # /100WBC PT 23.10 H (12.1-14.9) SECO NDS INR 1.96 H (0.8-1.2) D-Dimer 4.30 H (0-0.59) ug/mIFE U Specimen Type Sample Site ABG pH (7.35-7.45) ABG pCO2 (35-45) mmHg ABG pO2 (80.0-100.0) mmH g ABG HCO3 (22-26) mmol/L ABG O2 Saturation ABG Base Excess (-2.0-2.0) mmol/ L Magdy Test A-a O2 Gradient (5-10) mmHg Hematocrit (42-52) % Hgb O2 Saturation (95-100) % Carboxyhemoglobin (0.4-20.1) %THgb Methemoglobin (0.4-1.5) % Total Hemoglobin (14-18) g/dL Sodium (131-143) mmol/L Potassium (3.5-5.0) mmol/L Glucose (70-115) mg/dL Ionized Calcium (1.1-1.4) mmol/L O2 Delivery Device FiO2 % Recreation Clerk ID Chloride (98-107) mmol/L Carbon Dioxide (22-29) mmol/L Anion Gap (5-19) BUN (8-23) mg/dL Creatinine (0.7-1.2) mg/dL GFR Calculation (90-130) mL/min Calculated Osmolal ity (285-295) mOsm/k g Lactate 1.4 (0.5-2.2) mmol/L Calcium (8.5-10.5) mg/dL Total Bilirubin (0.15-1.2) mg/dL AST (0-40) U/L ALT (0-41) U/L Alkaline Phosphata se (40-130) IU/L Troponin T Baselin e 53 H (0-15) ng/L Troponin T 120 Min twenty-nine palms (0-15) ng/L Delta Troponin T (0-10) ABS# Troponin T Hi Sens 6Hr (0-15) ng/L Troponin T Hi Sens 6Hr Delta (0-12) ng/L NT-Pro-B Natriuret Pep (0-125) pg/mL Total Protein (6.6-8.7) g/dL Albumin (3.5-5.2) g/dL Globulin (1.3-4.6) g/dL Urine Color (Yellow) Urine Appearance (CLEAR) Urine pH (5-7) Ur Specific Gravit y (1.005-1.030) Urine Protein (Negative) Urine Glucose (UA) (Normal) Urine Ketones (Negative) Urine Blood (Negative) Urine Nitrate (Negative) Urine Bilirubin (Negative) Urine Urobilinogen (Negative) mg/dL Ur Leukocyte Bertha ase (Negative) Urine RBC (0-2) /hpf Urine WBC (0-5) /hpf Ur Squamous Epith Cells (0-5) /hpf Amorphous Sediment Urine Bacteria (NONE) /hpf SARS-CoV-2 Ag (Rap id) (Negative) 11/26/20 11/26/20 11/26/20 Range/Units 16:29 17:15 19:16 WBC (4.0-10.0) 10^3/ uL RBC (4.1-5.3) 10^6/u L Hgb (11.7-16.6) g/dL Hct (42.0-52.0) % MCV (80-94) fL MCH (28.0-34.0) pg MCHC (30.0-36.0) g/dL RDW (12.1-15.1) % Plt Count (130-400) 10^3/c mm MPV (7.4-10.4) fL Neut % (Auto) % Lymph % (Auto) % Boyle % (Auto) % Eos % (Auto) % Baso % (Auto) % Neut # (Auto) (1.8-7.7) 10^3/u L Lymph # (Auto) (0.8-4.8) 10^3/u L Boyle # (Auto) (0.2-0.9) 10^3/u L Eos # (Auto) (0.0-0.8) 10^3/u L Baso # (Auto) (0.0-0.1) 10^3/u L Nucleated RBC % (a uto) % Nucleated RBCs # /100WBC PT (12.1-14.9) SECO NDS INR (0.8-1.2) D-Dimer (0-0.59) ug/mIFE U Specimen Type Sample Site ABG pH (7.35-7.45) ABG pCO2 (35-45) mmHg ABG pO2 (80.0-100.0) mmH g ABG HCO3 (22-26) mmol/L ABG O2 Saturation ABG Base Excess (-2.0-2.0) mmol/ L Magdy Test A-a O2 Gradient (5-10) mmHg Hematocrit (42-52) % Hgb O2 Saturation (95-100) % Carboxyhemoglobin (0.4-20.1) %THgb Methemoglobin (0.4-1.5) % Total Hemoglobin (14-18) g/dL Sodium (131-143) mmol/L Potassium (3.5-5.0) mmol/L Glucose (70-115) mg/dL Ionized Calcium (1.1-1.4) mmol/L O2 Delivery Device FiO2 % Recreation Clerk ID Chloride (98-107) mmol/L Carbon Dioxide (22-29) mmol/L Anion Gap (5-19) BUN (8-23) mg/dL Creatinine (0.7-1.2) mg/dL GFR Calculation (90-130) mL/min Calculated Osmolal ity (285-295) mOsm/k g Lactate (0.5-2.2) mmol/L Calcium (8.5-10.5) mg/dL Total Bilirubin (0.15-1.2) mg/dL AST (0-40) U/L ALT (0-41) U/L Alkaline Phosphata se (40-130) IU/L Troponin T Baselin e Cancelled (0-15) ng/L Troponin T 120 Min twenty-nine palms 48.10 H (0-15) ng/L Delta Troponin T -4.90 L (0-10) ABS# Troponin T Hi Sens 6Hr (0-15) ng/L Troponin T Hi Sens 6Hr Delta (0-12) ng/L NT-Pro-B Natriuret Pep (0-125) pg/mL Total Protein (6.6-8.7) g/dL Albumin (3.5-5.2) g/dL Globulin (1.3-4.6) g/dL Urine Color Yellow (Yellow) Urine Appearance Clear (CLEAR) Urine pH 5.0 (5-7) Ur Specific Gravit y 1.010 (1.005-1.030) Urine Protein Trace (Negative) Urine Glucose (UA) Norm (Normal) Urine Ketones Negative (Negative) Urine Blood 2+ H (Negative) Urine Nitrate Negative (Negative) Urine Bilirubin 1+ H (Negative) Urine Urobilinogen 1 H (Negative) mg/dL Ur Leukocyte Bertha ase Negative (Negative) Urine RBC 0-4 H (0-2) /hpf Urine WBC 0-4 H (0-5) /hpf Ur Squamous Epith Cells 0-4 H (0-5) /hpf Amorphous Sediment Not Reportable Urine Bacteria Trace (NONE) /hpf SARS-CoV-2 Ag (Rap id) (Negative) 11/26/20 11/26/20 Range/Units 20:00 22:19 WBC (4.0-10.0) 10^3/ uL RBC (4.1-5.3) 10^6/u L Hgb (11.7-16.6) g/dL Hct (42.0-52.0) % MCV (80-94) fL MCH (28.0-34.0) pg MCHC (30.0-36.0) g/dL RDW (12.1-15.1) % Plt Count (130-400) 10^3/c mm MPV (7.4-10.4) fL Neut % (Auto) % Lymph % (Auto) % Boyle % (Auto) % Eos % (Auto) % Baso % (Auto) % Neut # (Auto) (1.8-7.7) 10^3/u L Lymph # (Auto) (0.8-4.8) 10^3/u L Boyle # (Auto) (0.2-0.9) 10^3/u L Eos # (Auto) (0.0-0.8) 10^3/u L Baso # (Auto) (0.0-0.1) 10^3/u L Nucleated RBC % (a uto) % Nucleated RBCs # /100WBC PT (12.1-14.9) SECO NDS INR (0.8-1.2) D-Dimer (0-0.59) ug/mIFE U Specimen Type Sample Site ABG pH (7.35-7.45) ABG pCO2 (35-45) mmHg ABG pO2 (80.0-100.0) mmH g ABG HCO3 (22-26) mmol/L ABG O2 Saturation ABG Base Excess (-2.0-2.0) mmol/ L Magdy Test A-a O2 Gradient (5-10) mmHg Hematocrit (42-52) % Hgb O2 Saturation (95-100) % Carboxyhemoglobin (0.4-20.1) %THgb Methemoglobin (0.4-1.5) % Total Hemoglobin (14-18) g/dL Sodium (131-143) mmol/L Potassium (3.5-5.0) mmol/L Glucose (70-115) mg/dL Ionized Calcium (1.1-1.4) mmol/L O2 Delivery Device FiO2 % Recreation Clerk ID Chloride (98-107) mmol/L Carbon Dioxide (22-29) mmol/L Anion Gap (5-19) BUN (8-23) mg/dL Creatinine (0.7-1.2) mg/dL GFR Calculation (90-130) mL/min Calculated Osmolal ity (285-295) mOsm/k g Lactate (0.5-2.2) mmol/L Calcium (8.5-10.5) mg/dL Total Bilirubin (0.15-1.2) mg/dL AST (0-40) U/L ALT (0-41) U/L Alkaline Phosphata se (40-130) IU/L Troponin T Baselin e (0-15) ng/L Troponin T 120 Min twenty-nine palms (0-15) ng/L Delta Troponin T (0-10) ABS# Troponin T Hi Sens 6Hr 48.01 H (0-15) ng/L Troponin T Hi Sens 6Hr Delta -4.99 L (0-12) ng/L NT-Pro-B Natriuret Pep (0-125) pg/mL Total Protein (6.6-8.7) g/dL Albumin (3.5-5.2) g/dL Globulin (1.3-4.6) g/dL Urine Color (Yellow) Urine Appearance (CLEAR) Urine pH (5-7) Ur Specific Gravit y (1.005-1.030) Urine Protein (Negative) Urine Glucose (UA) (Normal) Urine Ketones (Negative) Urine Blood (Negative) Urine Nitrate (Negative) Urine Bilirubin (Negative) Urine Urobilinogen (Negative) mg/dL Ur Leukocyte Bertha ase (Negative) Urine RBC (0-2) /hpf Urine WBC (0-5) /hpf Ur Squamous Epith Cells (0-5) /hpf Amorphous Sediment Urine Bacteria (NONE) /hpf SARS-CoV-2 Ag (Rap id) Negative (Negative) Critical Care Time Critical Care Time: Critical Care Time: Yes Total Critical Care Time: 40 Attestation: This case had a high probability of a clinically significant, sudden, or life threatening deterioration of this patient's condition which required my full and direct attention, intervention and personal management. Discharge Plan Discharge Patient Disposition: Xfer Other Clinical Impression: Congestive heart failure, Congenitally corrected transposition of great vessels, Anemia, CKD (chronic kidney disease), Cirrhosis Condition: Stable Referrals: Curry Ambrosio, [facility] [Primary Care Provider] - Coding Level of Care Code ED Obstetrics Scrub Nurse for Chg Fwd Documented by User: Gonzalo Ramirez MD 11/27/20 04:12 HPI - SOB/Dyspnea General: Chief Complaint: Shortness of Breath/Dyspnea Stated Complaint: SOB, WEAKNESS Time Seen by Provider: 11/26/20 15:44 PFSH ED PFSH: Medical History (Updated 11/27/20 @ 06:37 by Rustam Lackey DO) 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 GERD (gastroesophageal reflux disease) H/O fracture of arm Heart block, congenital Mitral regurgitation Tricuspid valve disease Surgical History Status cardiac pacemaker Family History Mother Diabetes Social History Smoking and tobacco status: current every day smoker cigarettes Packs smoked per day: 0.5 Second hand smoke exposure: No Smoking risk assessment/counseling performed?: Yes Alcohol intake: former Desire information about alcohol rehabilitation?: No Counseling given: No Desire information about substance/drug rehabilitation?: No Counseling given: No Adopted: No Caregiver/support person: Yes (family) Lives independently: Yes Household members: none Housing: House Marital status: Number of children: 2 service: No Current occupational status: disabled History of recent travel: No Current gender identity: Male Course Vital Signs: Vital signs: Vital Signs Temperature 97.6 F 11/26/20 16:00 Pulse Rate 55 L 11/27/20 05:50 Respiratory Rate 18 11/27/20 05:50 Blood Pressure 99/63 11/27/20 05:50 Pulse Oximetry 92 11/27/20 05:50 MDM - SOB/Dyspnea MDM Narrative: Medical decision making narrative: 32 presents of congestive heart failure with increased BNP and requiring oxygen. Patient also has a history of cirrhosis and recently had pacemaker placed at [facility]. Patient request transfer there and we do not have ICU bed availability. I spoke to Dr. Manzanares mother who is excepting. Lab Data: Labs: Lab Results 11/26/20 11/26/20 11/26/20 Range/Units 16:10 16:29 16:29 WBC 9.5 (4.0-10.0) 10^3/ uL RBC 3.20 L (4.1-5.3) 10^6/u L Hgb 8.9 L (11.7-16.6) g/dL Hct 27.9 L (42.0-52.0) % MCV 87.2 (80-94) fL MCH 27.8 L (28.0-34.0) pg MCHC 31.9 (30.0-36.0) g/dL RDW 24.2 H (12.1-15.1) % Plt Count 129 L (130-400) 10^3/c mm MPV 11.0 H (7.4-10.4) fL Neut % (Auto) 95.5 % Lymph % (Auto) 1.6 % Boyle % (Auto) 2.3 % Eos % (Auto) 0.0 % Baso % (Auto) 0.1 % Neut # (Auto) 9.11 H (1.8-7.7) 10^3/u L Lymph # (Auto) 0.2 L (0.8-4.8) 10^3/u L Boyle # (Auto) 0.2 (0.2-0.9) 10^3/u L Eos # (Auto) 0.0 (0.0-0.8) 10^3/u L Baso # (Auto) 0.0 (0.0-0.1) 10^3/u L Nucleated RBC % (a uto) 0 % Nucleated RBCs # 0.0 /100WBC PT (12.1-14.9) SECO NDS INR (0.8-1.2) D-Dimer (0-0.59) ug/mIFE U Specimen Type Arterial Sample Site Radial, left ABG pH 7.44 (7.35-7.45) ABG pCO2 32.3 L (35-45) mmHg ABG pO2 69.8 L (80.0-100.0) mmH g ABG HCO3 22.1 (22-26) mmol/L ABG O2 Saturation 94.2 ABG Base Excess -1.5 (-2.0-2.0) mmol/ L Magdy Test Pos A-a O2 Gradient 5.2 (5-10) mmHg Hematocrit 30.3 L (42-52) % Hgb O2 Saturation 91.3 L (95-100) % Carboxyhemoglobin 2.4 (0.4-20.1) %THgb Methemoglobin 0.7 (0.4-1.5) % Total Hemoglobin 9.9 L (14-18) g/dL Sodium 116.0 L 118 L* (131-143) mmol/L Potassium 4.6 4.9 (3.5-5.0) mmol/L Glucose 106.0 115 (70-115) mg/dL Ionized Calcium 1.2 (1.1-1.4) mmol/L O2 Delivery Device Room air FiO2 21.0 % Recreation Clerk ID Monro Chloride 82 L (98-107) mmol/L Carbon Dioxide 22 (22-29) mmol/L Anion Gap 18.9 (5-19) BUN 37 H (8-23) mg/dL Creatinine 1.5 H (0.7-1.2) mg/dL GFR Calculation 47.4 L (90-130) mL/min Calculated Osmolal ity 256 L (285-295) mOsm/k g Lactate (0.5-2.2) mmol/L Calcium 9.3 (8.5-10.5) mg/dL Total Bilirubin 7.2 H* (0.15-1.2) mg/dL AST 31 (0-40) U/L ALT 17 (0-41) U/L Alkaline Phosphata se 256 H (40-130) IU/L Troponin T Baselin e (0-15) ng/L Troponin T 120 Min twenty-nine palms (0-15) ng/L Delta Troponin T (0-10) ABS# Troponin T Hi Sens 6Hr (0-15) ng/L Troponin T Hi Sens 6Hr Delta (0-12) ng/L NT-Pro-B Natriuret Pep 9201 H (0-125) pg/mL Total Protein 5.7 L (6.6-8.7) g/dL Albumin 3.6 (3.5-5.2) g/dL Globulin 2.1 (1.3-4.6) g/dL Urine Color (Yellow) Urine Appearance (CLEAR) Urine pH (5-7) Ur Specific Gravit y (1.005-1.030) Urine Protein (Negative) Urine Glucose (UA) (Normal) Urine Ketones (Negative) Urine Blood (Negative) Urine Nitrate (Negative) Urine Bilirubin (Negative) Urine Urobilinogen (Negative) mg/dL Ur Leukocyte Bertha ase (Negative) Urine RBC (0-2) /hpf Urine WBC (0-5) /hpf Ur Squamous Epith Cells (0-5) /hpf Amorphous Sediment Urine Bacteria (NONE) /hpf SARS-CoV-2 Ag (Rap id) (Negative) 11/26/20 11/26/20 11/26/20 Range/Units 16:29 16:29 16:29 WBC (4.0-10.0) 10^3/ uL RBC (4.1-5.3) 10^6/u L Hgb (11.7-16.6) g/dL Hct (42.0-52.0) % MCV (80-94) fL MCH (28.0-34.0) pg MCHC (30.0-36.0) g/dL RDW (12.1-15.1) % Plt Count (130-400) 10^3/c mm MPV (7.4-10.4) fL Neut % (Auto) % Lymph % (Auto) % Boyle % (Auto) % Eos % (Auto) % Baso % (Auto) % Neut # (Auto) (1.8-7.7) 10^3/u L Lymph # (Auto) (0.8-4.8) 10^3/u L Boyle # (Auto) (0.2-0.9) 10^3/u L Eos # (Auto) (0.0-0.8) 10^3/u L Baso # (Auto) (0.0-0.1) 10^3/u L Nucleated RBC % (a uto) % Nucleated RBCs # /100WBC PT 23.10 H (12.1-14.9) SECO NDS INR 1.96 H (0.8-1.2) D-Dimer 4.30 H (0-0.59) ug/mIFE U Specimen Type Sample Site ABG pH (7.35-7.45) ABG pCO2 (35-45) mmHg ABG pO2 (80.0-100.0) mmH g ABG HCO3 (22-26) mmol/L ABG O2 Saturation ABG Base Excess (-2.0-2.0) mmol/ L Magdy Test A-a O2 Gradient (5-10) mmHg Hematocrit (42-52) % Hgb O2 Saturation (95-100) % Carboxyhemoglobin (0.4-20.1) %THgb Methemoglobin (0.4-1.5) % Total Hemoglobin (14-18) g/dL Sodium (131-143) mmol/L Potassium (3.5-5.0) mmol/L Glucose (70-115) mg/dL Ionized Calcium (1.1-1.4) mmol/L O2 Delivery Device FiO2 % Recreation Clerk ID Chloride (98-107) mmol/L Carbon Dioxide (22-29) mmol/L Anion Gap (5-19) BUN (8-23) mg/dL Creatinine (0.7-1.2) mg/dL GFR Calculation (90-130) mL/min Calculated Osmolal ity (285-295) mOsm/k g Lactate 1.4 (0.5-2.2) mmol/L Calcium (8.5-10.5) mg/dL Total Bilirubin (0.15-1.2) mg/dL AST (0-40) U/L ALT (0-41) U/L Alkaline Phosphata se (40-130) IU/L Troponin T Baselin e 53 H (0-15) ng/L Troponin T 120 Min twenty-nine palms (0-15) ng/L Delta Troponin T (0-10) ABS# Troponin T Hi Sens 6Hr (0-15) ng/L Troponin T Hi Sens 6Hr Delta (0-12) ng/L NT-Pro-B Natriuret Pep (0-125) pg/mL Total Protein (6.6-8.7) g/dL Albumin (3.5-5.2) g/dL Globulin (1.3-4.6) g/dL Urine Color (Yellow) Urine Appearance (CLEAR) Urine pH (5-7) Ur Specific Gravit y (1.005-1.030) Urine Protein (Negative) Urine Glucose (UA) (Normal) Urine Ketones (Negative) Urine Blood (Negative) Urine Nitrate (Negative) Urine Bilirubin (Negative) Urine Urobilinogen (Negative) mg/dL Ur Leukocyte Bertha ase (Negative) Urine RBC (0-2) /hpf Urine WBC (0-5) /hpf Ur Squamous Epith Cells (0-5) /hpf Amorphous Sediment Urine Bacteria (NONE) /hpf SARS-CoV-2 Ag (Rap id) (Negative) 11/26/20 11/26/20 11/26/20 Range/Units 16:29 17:15 19:16 WBC (4.0-10.0) 10^3/ uL RBC (4.1-5.3) 10^6/u L Hgb (11.7-16.6) g/dL Hct (42.0-52.0) % MCV (80-94) fL MCH (28.0-34.0) pg MCHC (30.0-36.0) g/dL RDW (12.1-15.1) % Plt Count (130-400) 10^3/c mm MPV (7.4-10.4) fL Neut % (Auto) % Lymph % (Auto) % Boyle % (Auto) % Eos % (Auto) % Baso % (Auto) % Neut # (Auto) (1.8-7.7) 10^3/u L Lymph # (Auto) (0.8-4.8) 10^3/u L Boyle # (Auto) (0.2-0.9) 10^3/u L Eos # (Auto) (0.0-0.8) 10^3/u L Baso # (Auto) (0.0-0.1) 10^3/u L Nucleated RBC % (a uto) % Nucleated RBCs # /100WBC PT (12.1-14.9) SECO NDS INR (0.8-1.2) D-Dimer (0-0.59) ug/mIFE U Specimen Type Sample Site ABG pH (7.35-7.45) ABG pCO2 (35-45) mmHg ABG pO2 (80.0-100.0) mmH g ABG HCO3 (22-26) mmol/L ABG O2 Saturation ABG Base Excess (-2.0-2.0) mmol/ L Magdy Test A-a O2 Gradient (5-10) mmHg Hematocrit (42-52) % Hgb O2 Saturation (95-100) % Carboxyhemoglobin (0.4-20.1) %THgb Methemoglobin (0.4-1.5) % Total Hemoglobin (14-18) g/dL Sodium (131-143) mmol/L Potassium (3.5-5.0) mmol/L Glucose (70-115) mg/dL Ionized Calcium (1.1-1.4) mmol/L O2 Delivery Device FiO2 % Recreation Clerk ID Chloride (98-107) mmol/L Carbon Dioxide (22-29) mmol/L Anion Gap (5-19) BUN (8-23) mg/dL Creatinine (0.7-1.2) mg/dL GFR Calculation (90-130) mL/min Calculated Osmolal ity (285-295) mOsm/k g Lactate (0.5-2.2) mmol/L Calcium (8.5-10.5) mg/dL Total Bilirubin (0.15-1.2) mg/dL AST (0-40) U/L ALT (0-41) U/L Alkaline Phosphata se (40-130) IU/L Troponin T Baselin e Cancelled (0-15) ng/L Troponin T 120 Min [place] 48.10 H (0-15) ng/L Delta Troponin T -4.90 L (0-10) ABS# Troponin T Hi Sens 6Hr (0-15) ng/L Troponin T Hi Sens 6Hr Delta (0-12) ng/L NT-Pro-B Natriuret Pep (0-125) pg/mL Total Protein (6.6-8.7) g/dL Albumin (3.5-5.2) g/dL Globulin (1.3-4.6) g/dL Urine Color Yellow (Yellow) Urine Appearance Clear (CLEAR) Urine pH 5.0 (5-7) Ur Specific Gravit y 1.010 (1.005-1.030) Urine Protein Trace (Negative) Urine Glucose (UA) Norm (Normal) Urine Ketones Negative (Negative) Urine Blood 2+ H (Negative) Urine Nitrate Negative (Negative) Urine Bilirubin 1+ H (Negative) Urine Urobilinogen 1 H (Negative) mg/dL Ur Leukocyte Bertha ase Negative (Negative) Urine RBC 0-4 H (0-2) /hpf Urine WBC 0-4 H (0-5) /hpf Ur Squamous Epith Cells 0-4 H (0-5) /hpf Amorphous Sediment Not Reportable Urine Bacteria Trace (NONE) /hpf SARS-CoV-2 Ag (Rap id) (Negative) 11/26/20 11/26/20 Range/Units 20:00 22:19 WBC (4.0-10.0) 10^3/ uL RBC (4.1-5.3) 10^6/u L Hgb (11.7-16.6) g/dL Hct (42.0-52.0) % MCV (80-94) fL MCH (28.0-34.0) pg MCHC (30.0-36.0) g/dL RDW (12.1-15.1) % Plt Count (130-400) 10^3/c mm MPV (7.4-10.4) fL Neut % (Auto) % Lymph % (Auto) % Boyle % (Auto) % Eos % (Auto) % Baso % (Auto) % Neut # (Auto) (1.8-7.7) 10^3/u L Lymph # (Auto) (0.8-4.8) 10^3/u L Boyle # (Auto) (0.2-0.9) 10^3/u L Eos # (Auto) (0.0-0.8) 10^3/u L Baso # (Auto) (0.0-0.1) 10^3/u L Nucleated RBC % (a uto) % Nucleated RBCs # /100WBC PT (12.1-14.9) SECO NDS INR (0.8-1.2) D-Dimer (0-0.59) ug/mIFE U Specimen Type Sample Site ABG pH (7.35-7.45) ABG pCO2 (35-45) mmHg ABG pO2 (80.0-100.0) mmH g ABG HCO3 (22-26) mmol/L ABG O2 Saturation ABG Base Excess (-2.0-2.0) mmol/ L Magdy Test A-a O2 Gradient (5-10) mmHg Hematocrit (42-52) % Hgb O2 Saturation (95-100) % Carboxyhemoglobin (0.4-20.1) %THgb Methemoglobin (0.4-1.5) % Total Hemoglobin (14-18) g/dL Sodium (131-143) mmol/L Potassium (3.5-5.0) mmol/L Glucose (70-115) mg/dL Ionized Calcium (1.1-1.4) mmol/L O2 Delivery Device FiO2 % Recreation Clerk ID Chloride (98-107) mmol/L Carbon Dioxide (22-29) mmol/L Anion Gap (5-19) BUN (8-23) mg/dL Creatinine (0.7-1.2) mg/dL GFR Calculation (90-130) mL/min Calculated Osmolal ity (285-295) mOsm/k g Lactate (0.5-2.2) mmol/L Calcium (8.5-10.5) mg/dL Total Bilirubin (0.15-1.2) mg/dL AST (0-40) U/L ALT (0-41) U/L Alkaline Phosphata se (40-130) IU/L Troponin T Baselin e (0-15) ng/L Troponin T 120 Min [place] (0-15) ng/L Delta Troponin T (0-10) ABS# Troponin T Hi Sens 6Hr 48.01 H (0-15) ng/L Troponin T Hi Sens 6Hr Delta -4.99 L (0-12) ng/L NT-Pro-B Natriuret Pep (0-125) pg/mL Total Protein (6.6-8.7) g/dL Albumin (3.5-5.2) g/dL Globulin (1.3-4.6) g/dL Urine Color (Yellow) Urine Appearance (CLEAR) Urine pH (5-7) Ur Specific Gravit y (1.005-1.030) Urine Protein (Negative) Urine Glucose (UA) (Normal) Urine Ketones (Negative) Urine Blood (Negative) Urine Nitrate (Negative) Urine Bilirubin (Negative) Urine Urobilinogen (Negative) mg/dL Ur Leukocyte Bertha ase (Negative) Urine RBC (0-2) /hpf Urine WBC (0-5) /hpf Ur Squamous Epith Cells (0-5) /hpf Amorphous Sediment Urine Bacteria (NONE) /hpf SARS-CoV-2 Ag (Rap id) Negative (Negative) Critical Care Time Critical Care Time: Critical Care Time: Yes Total Critical Care Time: 36 Attestation: This case had a high probability of a clinically significant, sudden, or life threatening deterioration of this patient's condition which required my full and direct attention, intervention and personal management. Discharge Plan Discharge Patient Disposition: Xfer Other Clinical Impression: Congestive heart failure, Congenitally corrected transposition of great vessels, Anemia, CKD (chronic kidney disease), Cirrhosis Condition: Stable Referrals: Curry Ambrosio, VICE PRESIDENT RESEARCH-[facility] [Primary Care Provider] - Coding Level of Care Code ED Obstetrics Scrub Nurse for Chel Pinzon
[2020-11-26] MEDS: albuterol 8 gm MDI 2 PUFF INHALATION (16:15)
[2020-11-26 16:22] LABS: ABG PCO2 32.3 mmHg (35-45); ABG PH Result 7.44 (7.35-7.45); Alveolar-Arterial Oxygen Gradi 5.2 mmHg (5-10); Arterial Blood Gas Hematocrit 30.3 % (42-52); Base Excess ABG -1.5 mmol/L (-2.0-2.0); Blood Gas Allen Test Pos; Blood Gas Operator Identificat MONRO; Blood Gas Sample Site Radial, left; Blood Gas Sample Type Arterial; Carboxyhemoglobin 2.4 %THgb (0.4-20.1); HCO3 ABG 22.1 mmol/L (22-26); HGB O2 Sat 91.3 % (95-100); Ionized Calcium Level - ABG 1.2 mmol/L (1.1-1.4); Methemoglobin 0.7 % (0.4-1.5); Oxygen Device ROOM AIR; Oxygen Saturation ABG 94.2; PO2 ABG 69.8 mmHg (80.0-100.0); Potassium Level - ABG 4.6 mmol/L (3.5-5.0); Total Hemoglobin 9.9 g/dL (14-18)
[2020-11-26 16:46] LABS: Basophils % 0.1 %; Hematocrit 27.9 % (42.0-52.0); Hemoglobin 8.9 g/dL (11.7-16.6); Lymphocytes # 0.2 10^3/uL (0.8-4.8); Lymphocytes % 1.6 %; Mean Corpuscular HGB Conc 31.9 g/dL (30.0-36.0); Mean Corpuscular Hemoglobin 27.8 pg (28.0-34.0); Mean Corpuscular Volume 87.2 fL (80-94); Monocytes # 0.2 10^3/uL (0.2-0.9); Monocytes % 2.3 %; Neutrophils # 9.11 10^3/uL (1.8-7.7); Neutrophils % 95.5 %; Nucleated Red Blood Cells % 0 %; Platelet Count 129 10^3/cmm (130-400); Red Cell Distribution Width 24.2 % (12.1-15.1); White Blood Count 9.5 10^3/uL (4.0-10.0)
[2020-11-26 16:57] LABS: INR 1.96 (0.8-1.2)
[2020-11-26 17:13] LABS: Lactate (Lactic Acid level) 1.4 mmol/L (0.5-2.2); Troponin(5th) Baseline 53 ng/L (0-15)
--- NOTE | 2020-11-26 17:33 | CTR_ITS ---
PROCEDURE INFORMATION: Exam: CT Angiography Chest With Contrast Exam date and time: 11/26/2020 6:01 PM Age: 64 years old Clinical indication: Abnormal findings; Abnormal diagnostic tests; Elevated d-dimer; Shortness of breath; Prior surgery; Surgery type: Pacemaker TECHNIQUE: Imaging protocol: Computed tomographic angiography of the chest with intravenous contrast. 3D rendering (Not supervised by radiologist): MIP and/or 3D reconstructed images were created by the technologist. Radiation optimization: All CT scans at this facility use at least one of these dose optimization techniques: automated exposure control; mA and/or kV adjustment per patient size (includes targeted exams where dose is matched to clinical indication); or iterative reconstruction. Contrast material: VISI 320; Contrast volume: 95 ml; Contrast route: INTRAVENOUS (IV); COMPARISON: CT chest abd pel wo con 07/11/2020 3:31 PM RADIATION DOSE METRICS: Total DLP (mGy-cm): 671.69 FINDINGS: Tubes, catheters and devices: Left-sided AICD with leads terminating in the right atrium and right ventricle. Pulmonary arteries: Pulmonary arteries are well opacified. Pulmonary arteries are normal in caliber. No filling defects are demonstrated. No evidence of pulmonary embolism. Aorta: The thoracic aorta is unopacified, likely indicating suboptimal cardiac output. Atherosclerosis of the aorta. No aneurysm. Aortic dissection cannot be evaluated. Lungs: 5 mm calcified granuloma in the right lower lobe. 4 mm calcified granuloma left lower lobe. No suspicious pulmonary nodules. Minimal interstitial fibrosis bilaterally. No consolidative infiltrates. Pleural space: No pneumothorax. No pleural effusion. Heart: Severe cardiomegaly noted. There is a small pericardial effusion present, measuring 15 mm in thickness. Lymph nodes: Small calcified right hilar lymph node, indicating old granulomatous disease. Bones/joints: Unremarkable. No acute fracture. Soft tissues: The soft tissues appear unremarkable. CT/CT angio chest PE protcl [id number] IMPRESSION: 1. Severe cardiomegaly noted. There is a small pericardial effusion present, measuring 15 mm in thickness. 2. No evidence of pulmonary embolism. 3. Changes of old granulomatous disease are identified. 4. No consolidative pulmonary infiltrate noted. Radiation Dose CTDIVOL = (mGy): DLP = 671.69 (mGy-cm)
[2020-11-26 17:39] LABS: Alanine Aminotransferase 17 U/L (0-41); Albumin Level 3.6 g/dL (3.5-5.2); Alkaline Phosphatase 256 IU/L (40-130); Anion Gap 18.9 (5-19); Aspartate Amino Transferase 31 U/L (0-40); Blood Urea Nitrogen 37 mg/dL (8-23); Calcium 9.3 mg/dL (8.5-10.5); Carbon Dioxide 22 mmol/L (22-29); Chloride 82 mmol/L (98-107); Globulin 2.1 g/dL (1.3-4.6); Glomerular Filtration Rate 47.4 mL/min (90-130); Glucose 115 mg/dL (65-115); NT Pro B Type Natriuretic Pept 9201 pg/mL (0-125); Osmolality Calculated 256 mOsm/kg (285-295); Potassium 4.9 mmol/L (3.5-5.1); Total Protein 5.7 g/dL (6.6-8.7)
[2020-11-26 17:53] LABS: Sodium 118 mmol/L (136-145); Total Bilirubin 7.2 mg/dL (0.15-1.2)
[2020-11-26] MEDS: iodixanol 320 mg/mL 100mL Btl IV (18:39)
[2020-11-26 19:04] LABS: Bilirubin Urine 1+ (Negative); Blood Urine 2+ (Negative); Glucose Urine UA Norm (Normal); Ketones Urine Negative (Negative); Nitrate Urine Negative (Negative); Protein Urine Trace (Negative); Urine Appearance Clear (CLEAR); Urine Color Yellow (Yellow)
[2020-11-26 19:05] LABS: Add Urine Culture? No; Add Urine Microscopic? YES; Bacteria Urine TRACE /hpf; Leukocyte Esterase Urine Negative (Negative); RBC Urine 0-4 /hpf (0-2); Squamous Epithelial Cell Urine 0-4 /hpf (0-5); Urobilinogen Urine 1 mg/dL (Negative); WBC Urine 0-4 /hpf (0-5)
[2020-11-26 20:24] LABS: SARS Covid-2 Antigen Negative (Negative)
[2020-11-26] MEDS: FUROsemide 10 mg/mL SDV 4mL 40 MG IVP (20:28)
--- NOTE | 2020-11-26 21:39 | PC.NURSE ---
food given to patient by nurse after HCP approval.
--- NOTE | 2020-11-26 21:48 | ECG_ITS ---
[facility] Test Date: 2020-11-26 Pat Name: Johnnie Martines Department: Room: Gender: Male Inserter: : 1955 Requested By: Rustam Bernard Order Number: [id number] MD: Eladia Espinal M.D. Measurements Intervals [place] Rate: 68 P: SD: QRS: -89 QRSD: 227 T: 92 QT: 513 QTc: 547 Interpretive Statements ELECTRONIC VENTRICULAR PACEMAKER ABNORMAL RHYTHM ECG Compared to ECG 11/26/2020 15:32:47 ST (T wave) deviation no longer present Myocardial infarct finding no longer present Electronically Signed On 11-27-2020 0:14:22 REFUND CLERK by Eladia Espinal M.D. [id number]
[2020-11-26 22:59] LABS: Troponin 5 6HR 48.01 ng/L (0-15)
[2020-11-26 23:08] LABS: Troponin 5 6HR Delta -4.99 ng/L (0-12)
[2020-11-27] VITALS (11 sets, daily range): BP systolic 92–109; BP diastolic 56–68; PULSE 55–68; RESP 16–23; O2SAT 91–99
--- NOTE | 2020-11-27 00:29 | PC.NURSE ---
patient ripped IV in right forearm out by accident.
== END 2020-11-27 10:25 | disposition other institution (70) ==
PROVIDERS: Family Medicine; Emergency Provider Emergency Medicine; PCP Nurse Practitioner
DX: I50.9 Heart failure, unspecified (principal); Q20.3 Discordant ventriculoarterial connection; D64.9 Anemia, unspecified; N18.9 Chronic kidney disease, unspecified; K74.60 Unspecified cirrhosis of liver; Z95.0 Presence of cardiac pacemaker; F17.210 Nicotine dependence, cigarettes, uncomplicated
CPT/HCPCS: 12345; 36415; 36600; 71045; 71275; 80051; 80053; 81001; 82330; 82805; 83605; 83880; 84484; 85025; 85378; 85610; 87426; 93005; 94640; 96374; 99284; 99285; J1940; J3535; Q9967